=== PATIENT | female | born 1975 | race American Indian/Alaskan Native ===

== ENCOUNTER 2016-10-17 14:10 | Emergency (ER) | payer MEDICARE, MEDICAID ==
[2016-10-17 15:51] VITALS: BP 125/88
[2016-10-17 17:49] LABS: Basophils % (Auto) 0.6 % (0.0-1.8); Hematocrit 37.2 % (30.3-42.9); Hemoglobin 11.5 gm/dl (10.1-14.3); Mean Corpuscular HGB Conc 31 % (30-34); Mean Corpuscular Volume 76 fl (79-97); Platelet Count 287 K/mm3 (140-440); Red Blood Count 4.87 M/mm3 (3.65-5.03); Red Cell Distribution Width 18.8 % (13.2-15.2); White Blood Count 7.5 K/mm3 (4.5-11.0)
[2016-10-17 17:54] LABS: Mean Corpuscular Hemoglobin 24 pg (28-32)
[2016-10-17 18:04] LABS: Anion Gap 26 mmol/L; BUN/Creatinine Ratio 10.31; Blood Urea Nitrogen 66 mg/dL (7-17); Calcium 9.5 mg/dL (8.4-10.2); Carbon Dioxide 16 mmol/L (22-30); Chloride 100.3 mmol/L (98-107); Glucose 152 mg/dL (65-100); Potassium 3.8 mmol/L (3.6-5.0); Sodium 138 mmol/L (137-145)
--- NOTE | 2016-10-18 08:01 | ED Elopement Review ---
ED Pt Elopement review - Results review Lab results: Laboratory Tests 10/17/16 10/17/16 17:30 17:30 WBC 7.5 RBC 4.87 Hgb 11.5 Hct 37.2 MCV 76 L MCH 24 L MCHC 31 RDW 18.8 H Plt Count 287 Lymph % (Auto) 17.8 [place] % (Auto) 9.0 H Eos % (Auto) 0.0 Baso % (Auto) 0.6 Lymph # 1.3 [place] # 0.7 Eos # 0.0 Baso # 0.0 Seg Neutrophils % 72.6 H Seg Neutrophils # 5.4 Sodium 138 Potassium 3.8 Chloride 100.3 Carbon Dioxide 16 L Anion Gap 26 BUN 66 H Creatinine 6.4 H Estimated GFR 9 BUN/Creatinine Ratio 10.31 Glucose 152 H Calcium 9.5 Troponin T < 0.010 - Call Back decision Pt Call Back Decision: Call pt to return to [facility] (fever, Syncope, CKD worse now, Tachy)
== END 2016-10-17 21:00 | disposition left against medical advice (07) ==
LOC: ED 14:10
DX: J11.1 Influenza due to unidentified influenza virus with other respiratory manifestations (principal); R11.2 Nausea with vomiting, unspecified; Z53.21 Procedure and treatment not carried out due to patient leaving prior to being seen by health care provider
CPT/HCPCS: 36415; 80048; 84484; 85025; 93005; 93010

== ENCOUNTER 2019-02-02 11:05 | Inpatient (IN) | payer MEDICARE ==
--- NOTE | 2019-02-02 11:38 | Emergency Department Report ---
Blank Doc - Documentation Documentation: 43 y old female with end stage renal disease sent in by tube roller to get her dialysis Pt ststaes port was placed last week and this would be her first dialysis in a while states non compliant with prior center Nephrolist:Dr. Calderón MAin Side: admit for dialysis
[2019-02-02 12:12] LABS: Hematocrit 25.5 % (30.3-42.9); Hemoglobin 8.4 gm/dl (10.1-14.3); Mean Corpuscular HGB Conc 33 % (30-34); Mean Corpuscular Volume 91 fl (79-97); Platelet Count 343 K/mm3 (140-440); Red Blood Count 2.81 M/mm3 (3.65-5.03); Red Cell Distribution Width 17.3 % (13.2-15.2)
[2019-02-02 12:33] LABS: Albumin 3.4 g/dL (3.9-5); BUN/Creatinine Ratio 8; Blood Urea Nitrogen 80 mg/dL (7-17); Calcium 9.6 mg/dL (8.4-10.2); Hemolysis Index 3
[2019-02-02 12:42] LABS: Alanine Aminotransferase < 5 units/L (7-56); Bilirubin,Direct < 0.2 mg/dL (0-0.2)
[2019-02-02] MEDS ORDERED: HEPARIN IV PRN (12:49)
[2019-02-02] MEDS ORDERED: HEPARIN 10,000 UNITS/10 ML IV PRN ×2 (12:49)
[2019-02-02] MEDS ORDERED: NACL 0.9% 100 ML IV PRN (12:49)
[2019-02-02] MEDS ORDERED: PROCRIT SUB-Q PRN (12:49)
[2019-02-02] MEDS ORDERED: ZEMPLAR IV PRN (12:49)
--- NOTE | 2019-02-02 12:53 | XRay Report ---
AP CHEST: HISTORY: Hypertension AP view of the chest demonstrates a normal mediastinal and cardiac contour with clear lungs and normal bony and soft tissue structures. Right IJ dual-lumen venous catheter terminates at the cavoatrial junction. IMPRESSION: Unremarkable AP chest.
[2019-02-02 12:56] LABS: INR 0.95 (0.87-1.13); Partial Thromboplastin Time 26.5 Sec. (24.2-36.6)
[2019-02-02 13:29] LABS: Basophils % (Manual) 0 % (0.0-1.8); Total Cells Counted 100
[2019-02-02 13:30] LABS: Anisocytosis Few; Macrocytosis Few; Platelet Estimate Consistent w Auto; Poikilocytosis Few
--- NOTE | 2019-02-02 13:35 | Emergency Department Report ---
ED General Adult HPI - General Chief complaint: Pain General Stated complaint: DIALYSIS Time Seen by Provider: 02/02/19 11:33 Source: patient Mode of arrival: Wheelchair Limitations: Physical Limitation - History of Present Illness Initial comments: This is a 43-year-old female with a history of polycystic kidney disease. She has end-stage renal disease and has been on dialysis for approximately 5 months. She has a dialysis catheter. She was last dialyzed approximately one week ago at [facility]. She went to her character actor's office today because she was unable to secure an outpatient dialysis. Thereby, he sent her to the emergency department as dialysis was likely required. The patient seems to have quite a few pain complaints of chronic nature to include back pain right side pain. She does not report acute dyspnea. She d enies fever or chills. She states she is here for dialysis. -: Gradual, week(s) Location: back, upper extremity, lower extremity Severity scale (0 -10): 0 Quality: aching Consistency: intermittent Improves with: none Worsens with: movement Associated Symptoms: denies other symptoms - Related Data Home Medications Medication Instructions Recorded Confirmed Last Taken No Known Home Medications [No 02/02/19 02/02/19 Unknown Reported Home Medications] Allergies Allergy/AdvReac Type Severity Reaction Status Date / Time No Known Allergies Allergy Verified 02/02/19 11:37 ED Review of Systems ROS: Stated complaint: DIALYSIS Other details as noted in HPI Constitutional: denies: chills, fever Eyes: denies: eye pain, eye discharge, vision change ENT: denies: ear pain, throat pain Respiratory: denies: cough, shortness of breath, wheezing Cardiovascular: denies: chest pain, palpitations Endocrine: no symptoms reported Gastrointestinal: denies: abdominal pain, nausea, diarrhea Genitourinary: denies: urgency, dysuria, discharge Musculoskeletal: as per HPI, back pain, joint swelling, arthralgia Skin: denies: rash, lesions Neurological: denies: headache, weakness, numbness, paresthesias Psychiatric: denies: anxiety, depression Hematological/Lymphatic: denies: easy bleeding, easy bruising ED Past Medical Hx - Past Medical History Previous Medical History?: Yes Hx Renal Disease: Yes Additional medical history: Fluid on brain - Surgical History Past Surgical History?: Yes Additional Surgical History: C- Section, 3 hernia repairs, gallbladder removed - Social History Smoking Status: Current Every Day Smoker Substance Use Type: None - Medications Home Medications: Home Medications Medication Instructions Recorded Confirmed Last Taken Type No Known Home Medications [No 02/02/19 02/02/19 Unknown History Reported Home Medications] ED Physical Exam - General Limitations: Physical Limitation General appearance: alert, in no apparent distress - Head Head exam: Present: atraumatic, normocephalic - Eye Eye exam: Present: normal appearance. Absent: scleral icterus - ENT ENT exam: Present: mucous membranes moist - Neck Neck exam: Present: normal inspection. Absent: tenderness, meningismus - Respiratory Respiratory exam: Present: normal lung sounds bilaterally. Absent: respiratory distress - Cardiovascular Cardiovascular Exam: Present: regular rate, normal rhythm. Absent: systolic murmur, diastolic murmur, rubs, gallop - GI/Abdominal GI/Abdominal exam: Present: soft, normal bowel sounds. Absent: distended, tenderness, guarding, rebound, rigid - Extremities Exam Extremities exam: Present: normal inspection - Back Exam Back exam: Present: normal inspection - Neurological Exam Neurological exam: Present: alert, oriented X3, CN II-XII intact. Absent: motor sensory deficit - Psychiatric Psychiatric exam: Present: normal affect, normal mood - Skin Skin exam: Present: warm, dry, intact, normal color. Absent: rash ED Course Vital Signs 02/02/19 02/02/19 02/02/19 11:35 12:21 12:22 Temperature 98.4 F 98.4 F Pulse Rate 126 H 112 H Respiratory 20 13 13 Rate Blood Pressure 119/84 Blood Pressure 121/74 [Left] O2 Sat by Pulse 98 100 100 Oximetry - Reevaluation(s) Reevaluation #1: Discussed laboratory picture with character actor, Dr. Calderón. He stated that acute intervention was not required prior to dialysis. He stated he would place dialysis orders. I spoke to Dr. Singh who will be admitting the patient to the hospitalist service. 02/02/19 13:38 ED Medical Decision Making - Lab Data Result diagrams: 02/02/19 11:50 02/02/19 11:50 Laboratory Results - last 24 hr 02/02/19 02/02/19 02/02/19 11:50 11:50 11:50 WBC 9.4 RBC 2.81 L Hgb 8.4 L Hct 25.5 L MCV 91 MCH 30 MCHC 33 RDW 17.3 H Plt Count 343 Add Manual Diff Complete Total Counted 100 Seg Neuts % (Manual) 68.0 Band Neutrophils % 0 Lymphocytes % (Manual) 17.0 Reactive Lymphs % (Man) 0 Monocytes % (Manual) 5.0 Eosinophils % (Manual) 10.0 H Basophils % (Manual) 0 Metamyelocytes % 0 Myelocytes % 0 Promyelocytes % 0 Blast Cells % 0 Nucleated RBC % Not Reportable Seg Neutrophils # Man 6.4 Band Neutrophils # 0.0 Lymphocytes # (Manual) 1.6 Abs React Lymphs (Man) 0.0 Monocytes # (Manual) 0.5 Eosinophils # (Manual) 0.9 H Basophils # (Manual) 0.0 Metamyelocytes # 0.0 Myelocytes # 0.0 Promyelocytes # 0.0 Blast Cells # 0.0 WBC Morphology Not Reportable Hypersegmented Neuts Not Reportable Hyposegmented Neuts Not Reportable Hypogranular Neuts Not Reportable Smudge Cells Not Reportable Toxic Granulation Not Reportable Toxic Vacuolation Not Reportable Dohle Bodies Not Reportable Pelger-Huet Anomaly Not Reportable Lam Rods Not Reportable Platelet Estimate Consistent w auto Clumped Platelets Not Reportable Plt Clumps, EDTA Not Reportable Large Platelets Not Reportable Giant Platelets Not Reportable Platelet Satelliting Not Reportable Plt Morphology Comment Not Reportable RBC Morphology Not Reportable Dimorphic RBCs Not Reportable Polychromasia Not Reportable Hypochromasia Not Reportable Poikilocytosis Few Anisocytosis Few Microcytosis Not Reportable Macrocytosis Few Spherocytes Not Reportable Pappenheimer Bodies Not Reportable Sickle Cells Not Reportable Target Cells Not Reportable Tear Drop Cells Not Reportable Ovalocytes Not Reportable Helmet Cells Not Reportable [place] Bodies Not Reportable [place] Rings Not Reportable Jamie Cells Not Reportable Bite Cells Not Reportable Crenated Cell Not Reportable Elliptocytes Not Reportable Acanthocytes (Spur) Not Reportable Rouleaux Not Reportable Hemoglobin C Crystals Not Reportable Schistocytes Not Reportable Malaria parasites Not Reportable Quang Bodies Not Reportable Hem Pathologist Commnt No PT INR APTT Sodium 135 L Potassium 5.8 H Chloride 94.7 L Carbon Dioxide 19 L Anion Gap 27 BUN 80 H Creatinine 10.6 H Estimated GFR 5 BUN/Creatinine Ratio 8 Glucose 89 Calcium 9.6 Phosphorus 7.80 H Magnesium 1.70 Total Bilirubin 0.20 Direct Bilirubin < 0.2 AST 7 ALT < 5 L Alkaline Phosphatase 142 H NT-Pro-B Natriuret Pep 802.7 H Total Protein 7.2 Albumin 3.4 L Albumin/Globulin Ratio 0.9 HCG, Qual Negative 02/02/19 12:07 WBC RBC Hgb Hct MCV MCH MCHC RDW Plt Count Add Manual Diff Total Counted Seg Neuts % (Manual) Band Neutrophils % Lymphocytes % (Manual) Reactive Lymphs % (Man) Monocytes % (Manual) Eosinophils % (Manual) Basophils % (Manual) Metamyelocytes % Myelocytes % Promyelocytes % Blast Cells % Nucleated RBC % Seg Neutrophils # Man Band Neutrophils # Lymphocytes # (Manual) Abs React Lymphs (Man) Monocytes # (Manual) Eosinophils # (Manual) Basophils # (Manual) Metamyelocytes # Myelocytes # Promyelocytes # Blast Cells # WBC Morphology Hypersegmented Neuts Hyposegmented Neuts Hypogranular Neuts Smudge Cells Toxic Granulation Toxic Vacuolation Dohle Bodies Pelger-Huet Anomaly Lam Rods Platelet Estimate Clumped Platelets Plt Clumps, EDTA Large Platelets Giant Platelets Platelet Satelliting Plt Morphology Comment RBC Morphology Dimorphic RBCs Polychromasia Hypochromasia Poikilocytosis Anisocytosis Microcytosis Macrocytosis Spherocytes Pappenheimer Bodies Sickle Cells Target Cells Tear Drop Cells Ovalocytes Helmet Cells [place] Bodies [place] Rings Jamie Cells Bite Cells Crenated Cell Elliptocytes Acanthocytes (Spur) Rouleaux Hemoglobin C Crystals Schistocytes Malaria parasites Quang Bodies Hem Pathologist Commnt PT 13.2 INR 0.95 APTT 26.5 Sodium Potassium Chloride Carbon Dioxide Anion Gap BUN Creatinine Estimated GFR BUN/Creatinine Ratio Glucose Calcium Phosphorus Magnesium Total Bilirubin Direct Bilirubin AST ALT Alkaline Phosphatase NT-Pro-B Natriuret Pep Total Protein Albumin Albumin/Globulin Ratio HCG, Qual - EKG Data -: EKG Interpreted by Me (still pending) - Radiology Data interpreted by me: Dialysis catheter in situ. No acute process seen. Critical care attestation.: If time is entered above; I have spent that time in minutes in the direct care of this critically ill patient, excluding procedure time. ED Disposition Clinical Impression: End-stage renal disease needing dialysis, Hyperkalemia Disposition: DC- OP ADMIT IP TO THIS HOSP Is pt being admited?: Yes Does the pt Need Aspirin: Yes Condition: Stable Time of Disposition: 13:40
[2019-02-02 16:30] LABS: Hepatitis B Surface Antigen Non-Reactive (Negative); Hepatitis C Virus Antibody Non-Reactive (NonReactive)
--- NOTE | 2019-02-02 17:37 | Consultation ---
History of Present Illness - Reason for Consult Consult date: 02/02/19 end stage renal disease, hyperkalemia, metabolic acidosis - History of Present Illness The patient is a 43 YO femalewith history significant for HLD, Anemia, ESRD and Medical non-complaince who presented to [facility] ED for need of hemodialysis. Patient hasn't had dialysis for the past 2 months. She was last dialyzed on 01/27/2019 at [facility]. Since she has not established with any outpatient hemodialysis unit she came to the ER for hemodialysis. Patient denies any N, V, D, abd pain, cp, cough, sob, dizziness, syncope, leg swelling, fever, chills, rash, dysuria or hematuria. Labs significant for K 5.8, Bicarb 19 and Hb 8.4. Nephrology was consulted for further evaluation and treatment. Past History Past Medical History: anemia, dialysis, ESRD Medications and Allergies Allergies Allergy/AdvReac Type Severity Reaction Status Date / Time No Known Allergies Allergy Verified 02/02/19 11:37 Home Medications Medication Instructions Recorded Confirmed Last Taken Type oxyCODONE /ACETAMINOPHEN [Percocet 1 tab PO Q6H PRN #14 tablet 02/03/19 Unknown Rx 5/325 mg] Active Meds: Active Medications Aspirin (Baby Aspirin) 81 mg PO QDAY PRINCESS Epoetin Conor (Procrit) 20,000 unit SUB-Q GOPI PRN PRN Reason: hemodialysis Heparin Sodium (Porcine) (Heparin 10,000 Units/10 Ml) 1,000 unit IV GOPI PRN PRN Reason: hemodialysis Heparin Sodium (Porcine) (Heparin 10,000 Units/10 Ml) 1,000 unit IV GOPI PRN PRN Reason: hemodialysis Heparin Sodium (Porcine) (Heparin) 5,000 unit IV GOPI PRN PRN Reason: hemodialysis Sodium Chloride (Nacl 0.9%) 100 mls @ 999 mls/hr IV GOPI PRN PRN Reason: Hypotension Paricalcitol (Zemplar) 1 mcg IV GOPI PRN PRN Reason: hemodialysis Review of Systems Constitutional: no weight loss, no weight gain, no fever, no chills, no anorexia, no fatigue, no weakness Breasts: deferred Cardiovascular: no chest pain, no orthopnea, no edema, no syncope, no lightheadedness, no shortness of breath, no leg edema Respiratory: no cough, no shortness of breath, no dyspnea on exertion Gastrointestinal: no abdominal pain, no nausea, no vomiting, no diarrhea, no melena, no jaundice Genitourinary Female: no dysuria, no hematuria Rectal: no bleeding Integumentary: no rash, no wounds, no jaundice Neurological: no paralysis, no convulsions, no aphasia, no change in speech, no change in mentation, no confusion, no memory loss Psychiatric: no memory loss Exam - Vital Signs Vital signs: Vital Signs Temp Pulse Resp BP Pulse Ox 98.4 F 126 H 20 119/84 98 02/02/19 11:35 02/02/19 11:35 02/02/19 11:35 02/02/19 11:35 02/02/19 11:35 - General Appearance General appearance: well-developed, well-nourished, appears stated age, obese, other (no distress, R IJ tunnel catheter) EENT: ATNC, PERRL, mucous membranes moist, hearing intact, vision intact Neck: Present: neck supple, trachea midline Respiratory: Clear to Ascultation Heart: regular, S1S2, no murmurs Gastrointestinal: Present: normoactive bowel sounds. Absent: tenderness, distended Integumentary: no rash, warm and dry Neurologic: no focal deficit, no asterixis, alert and oriented x3 Musculoskeletal: Present: other (no edema) Results - Lab Results 02/03/19 10:08 02/03/19 10:08 Most recent lab results Calcium 9.6 mg/dL (8.4-10.2) 02/02/19 11:50 Phosphorus 7.80 mg/dL (2.5-4.5) H 02/02/19 11:50 Magnesium 1.70 mg/dL (1.7-2.3) 02/02/19 11:50 Assessment and Plan 1. ESRD: Patient was last dialzyed yesterday. Plan to do HD today, orders placed. 2. FEN: Hyperkalemia, HD today. Metabolic acidosis, HD today. Monitor lytes. 3. Anemia: Epogen. 4. Compliance encouraged.
[2019-02-02] MEDS ORDERED: TYLENOL PO PRN (21:36)
[2019-02-02] MEDS ORDERED: SODIUM CHLORIDE FLUSH SYRINGE 10 ML IV PRN (21:36)
[2019-02-02] MEDS ORDERED: MORPHINE IV PRN (21:36)
--- NOTE | 2019-02-02 22:09 | History and Physical Report ---
History of Present Illness Date of examination: 02/02/19 Date of admission: 02/02/19 12:40 Chief complaint: Shortness of breath for 2 days History of present illness: 43-year-old -Gabonese female with history of polycystic kidney disease missed her dialysis for the last 1 week. Patient had hemodialysis one week ago at [facility]. Patient has been having shortness of breath and orthopnea. Patient may need a dialysis chair. Patient is referred by her chief dietitian for volume overload. No fever or chills. Past Medical History Previous Medical History?: Yes Hx Renal Disease: Yes Additional medical history: Fluid on brain Surgical History Past Surgical History?: Yes Additional Surgical History: C- Section, 3 hernia repairs, gallbladder removed Social History Smoking Status: Current Every Day Smoker Substance Use Type: None Family history Htn Medications Home Medications: Home Medications Medication Instructions Recorded Confirmed Last Taken Type No Known Home Medications [No 02/02/19 02/02/19 Unknown History Reported Home Medications] Review of Systems ROS: Stated complaint: DIALYSIS Other details as noted in HPI Constitutional: denies: chills, fever Eyes: denies: eye pain, eye discharge, vision change ENT: denies: ear pain, throat pain Respiratory: denies: cough, shortness of breath, wheezing Cardiovascular: denies: chest pain, palpitations Endocrine: no symptoms reported Gastrointestinal: denies: abdominal pain, nausea, diarrhea Genitourinary: denies: urgency, dysuria, discharge Musculoskeletal: as per HPI, back pain, joint swelling, arthralgia Skin: denies: rash, lesions Neurological: denies: headache, weakness, numbness, paresthesias Psychiatric: denies: anxiety, depression Hematological/Lymphatic: denies: easy bleeding, easy bruising Medications and Allergies Allergies Allergy/AdvReac Type Severity Reaction Status Date / Time No Known Allergies Allergy Verified 02/02/19 11:37 Home Medications Medication Instructions Recorded Confirmed Last Taken Type No Known Home Medications [No 02/02/19 02/02/19 Unknown History Reported Home Medications] Active Meds: Active Medications Acetaminophen (Tylenol) 650 mg PO Q4H PRN PRN Reason: Pain MILD(1-3)/Fever >100.5/BROWN Aspirin (Baby Aspirin) 81 mg PO QDAY PRINCESS Epoetin Conor (Procrit) 20,000 unit SUB-Q GOPI PRN PRN Reason: hemodialysis Heparin Sodium (Porcine) (Heparin 10,000 Units/10 Ml) 1,000 unit IV GOPI PRN PRN Reason: hemodialysis Heparin Sodium (Porcine) (Heparin 10,000 Units/10 Ml) 1,000 unit IV GOPI PRN PRN Reason: hemodialysis Heparin Sodium (Porcine) (Heparin) 5,000 unit IV GOPI PRN PRN Reason: hemodialysis Sodium Chloride (Nacl 0.9%) 100 mls @ 999 mls/hr IV GOPI PRN PRN Reason: Hypotension Morphine Sulfate (Morphine) 2 mg IV Q4H PRN PRN Reason: Pain, Moderate (4-6) Ondansetron HCl (Zofran) 4 mg IV Q8H PRN PRN Reason: Nausea And Vomiting Oxycodone/Acetaminophen (Percocet 5/325) 1 tab PO Q6H PRN PRN Reason: Pain, Moderate (4-6) Paricalcitol (Zemplar) 1 mcg IV GOPI PRN PRN Reason: hemodialysis Sodium Chloride (Sodium Chloride Flush Syringe 10 Ml) 10 ml IV BID PRINCESS Sodium Chloride (Sodium Chloride Flush Syringe 10 Ml) 10 ml IV PRN PRN PRN Reason: LINE FLUSH Exam - Constitutional Vitals: Temp Pulse Resp BP Pulse Ox 98.4 F 116 H 20 117/82 99 02/02/19 20:33 02/02/19 20:33 02/02/19 20:33 02/02/19 20:33 02/02/19 20:33 General appearance: Present: mild distress, well-nourished - EENT Eyes: Present: PERRL ENT: hearing intact, clear oral mucosa - Neck Neck: Present: supple, normal ROM - Respiratory Respiratory effort: normal Respiratory: bilateral: CTA - Cardiovascular Heart rate: 78 Rhythm: regular Heart Sounds: Present: S1 & S2. Absent: rub, click - Extremities Extremities: no ischemia, pulses intact, pulses symmetrical, No edema Peripheral Pulses: within normal limits - Abdominal General gastrointestinal: Present: soft, non-tender, non-distended, normal bowel sounds Female genitourinary: Present: normal - Rectal Rectal Exam: deferred - Integumentary Integumentary: Present: clear, warm, dry - Musculoskeletal Musculoskeletal: gait normal, strength equal bilaterally - Psychiatric Psychiatric: appropriate mood/affect, intact judgment & insight - Neurologic Neurologic: CNII-XII intact, moves all extremities - Allied Health Allied health notes reviewed: nursing, case management Results - Labs CBC & Chem 7: 02/02/19 11:50 02/02/19 11:50 Labs: Laboratory Last Values WBC 9.4 K/mm3 (4.5-11.0) 02/02/19 11:50 RBC 2.81 M/mm3 (3.65-5.03) L 02/02/19 11:50 Hgb 8.4 gm/dl (10.1-14.3) L 02/02/19 11:50 Hct 25.5 % (30.3-42.9) L 02/02/19 11:50 MCV 91 fl (79-97) 02/02/19 11:50 MCH 30 pg (28-32) 02/02/19 11:50 MCHC 33 % (30-34) 02/02/19 11:50 RDW 17.3 % (13.2-15.2) H 02/02/19 11:50 Plt Count 343 K/mm3 (140-440) 02/02/19 11:50 Add Manual Diff Complete 02/02/19 11:50 Total Counted 100 02/02/19 11:50 Seg Neuts % (Manual) 68.0 % (40.0-70.0) 02/02/19 11:50 0 % 02/02/19 11:50 17.0 % (13.4-35.0) 02/02/19 11:50 Reactive Lymphs % (Man) 0 % 02/02/19 11:50 5.0 % (0.0-7.3) 02/02/19 11:50 10.0 % (0.0-4.3) H 02/02/19 11:50 0 % (0.0-1.8) 02/02/19 11:50 0 % 02/02/19 11:50 0 % 02/02/19 11:50 0 % 02/02/19 11:50 0 % 02/02/19 11:50 Nucleated RBC % Not Reportable 02/02/19 11:50 Seg Neutrophils # Man 6.4 K/mm3 (1.8-7.7) 02/02/19 11:50 Band Neutrophils # 0.0 K/mm3 02/02/19 11:50 1.6 K/mm3 (1.2-5.4) 02/02/19 11:50 Abs React Lymphs (Man) 0.0 K/mm3 02/02/19 11:50 0.5 K/mm3 (0.0-0.8) 02/02/19 11:50 0.9 K/mm3 (0.0-0.4) H 02/02/19 11:50 0.0 K/mm3 (0.0-0.1) 02/02/19 11:50 0.0 K/mm3 02/02/19 11:50 0.0 K/mm3 02/02/19 11:50 0.0 K/mm3 02/02/19 11:50 Blast Cells # 0.0 K/mm3 02/02/19 11:50 WBC Morphology Not Reportable 02/02/19 11:50 Hypersegmented Neuts Not Reportable 02/02/19 11:50 Hyposegmented Neuts Not Reportable 02/02/19 11:50 Hypogranular Neuts Not Reportable 02/02/19 11:50 Not Reportable 02/02/19 11:50 Not Reportable 02/02/19 11:50 Not Reportable 02/02/19 11:50 Not Reportable 02/02/19 11:50 Not Reportable 02/02/19 11:50 Not Reportable 02/02/19 11:50 Consistent w auto 02/02/19 11:50 Not Reportable 02/02/19 11:50 Plt Clumps, EDTA Not Reportable 02/02/19 11:50 Not Reportable 02/02/19 11:50 Not Reportable 02/02/19 11:50 Not Reportable 02/02/19 11:50 Plt Morphology Comment Not Reportable 02/02/19 11:50 RBC Morphology Not Reportable 02/02/19 11:50 Dimorphic RBCs Not Reportable 02/02/19 11:50 Not Reportable 02/02/19 11:50 Not Reportable 02/02/19 11:50 Few 02/02/19 11:50 Few 02/02/19 11:50 Not Reportable 02/02/19 11:50 Few 02/02/19 11:50 Not Reportable 02/02/19 11:50 Not Reportable 02/02/19 11:50 Not Reportable 02/02/19 11:50 Not Reportable 02/02/19 11:50 Not Reportable 02/02/19 11:50 Not Reportable 02/02/19 11:50 Not Reportable 02/02/19 11:50 Not Reportable 02/02/19 11:50 Not Reportable 02/02/19 11:50 Not Reportable 02/02/19 11:50 Not Reportable 02/02/19 11:50 Not Reportable 02/02/19 11:50 Not Reportable 02/02/19 11:50 Acanthocytes (Spur) Not Reportable 02/02/19 11:50 Rouleaux Not Reportable 02/02/19 11:50 Not Reportable 02/02/19 11:50 Not Reportable 02/02/19 11:50 Not Reportable 02/02/19 11:50 Not Reportable 02/02/19 11:50 Hem Pathologist Commnt No 02/02/19 11:50 PT 13.2 Sec. (12.2-14.9) 02/02/19 12:07 INR 0.95 (0.87-1.13) 02/02/19 12:07 APTT 26.5 Sec. (24.2-36.6) 02/02/19 12:07 Sodium 135 mmol/L (137-145) L 02/02/19 11:50 Potassium 5.8 mmol/L (3.6-5.0) H 02/02/19 11:50 Chloride 94.7 mmol/L (98-107) L 02/02/19 11:50 Carbon Dioxide 19 mmol/L (22-30) L 02/02/19 11:50 27 mmol/L 02/02/19 11:50 BUN 80 mg/dL (7-17) H 02/02/19 11:50 10.6 mg/dL (0.7-1.2) H 02/02/19 11:50 Estimated GFR 5 ml/min 02/02/19 11:50 8 % 02/02/19 11:50 Glucose 89 mg/dL (65-100) 02/02/19 11:50 Calcium 9.6 mg/dL (8.4-10.2) 02/02/19 11:50 Phosphorus 7.80 mg/dL (2.5-4.5) H 02/02/19 11:50 Magnesium 1.70 mg/dL (1.7-2.3) 02/02/19 11:50 0.20 mg/dL (0.1-1.2) 02/02/19 11:50 < 0.2 mg/dL (0-0.2) 02/02/19 11:50 AST 7 units/L (5-40) 02/02/19 11:50 ALT < 5 units/L (7-56) L 02/02/19 11:50 142 units/L (35-129) H 02/02/19 11:50 NT-Pro-B Natriuret Pep 802.7 pg/mL (0-450) H 02/02/19 11:50 7.2 g/dL (6.3-8.2) 02/02/19 11:50 3.4 g/dL (3.9-5) L 02/02/19 11:50 0.9 % 02/02/19 11:50 HCG, Qual Negative (Negative) 02/02/19 11:50 Hepatitis A IgM Ab Non-reactive (NonReactive) 02/02/19 11:50 Hep Bs Antigen Non-reactive (Negative) 02/02/19 11:50 Hep B Core IgM Ab Non-reactive (NonReactive) 02/02/19 11:50 Non-reactive (NonReactive) 02/02/19 11:50 Short CBC 02/02/19 Range/Units 11:50 WBC 9.4 (4.5-11.0) K/mm3 Hgb 8.4 L (10.1-14.3) gm/dl Hct 25.5 L (30.3-42.9) % Plt Count 343 (140-440) K/mm3 BMP 02/02/19 11:50 Sodium 135 L Potassium 5.8 H Chloride 94.7 L Carbon Dioxide 19 L BUN 80 H Creatinine 10.6 H Glucose 89 Calcium 9.6 Liver Function 02/02/19 Range/Units 11:50 Total Bilirubin 0.20 (0.1-1.2) mg/dL Direct Bilirubin < 0.2 (0-0.2) mg/dL AST 7 (5-40) units/L ALT < 5 L (7-56) units/L Alkaline Phosphatase 142 H (35-129) units/L Albumin 3.4 L (3.9-5) g/dL - Imaging and Cardiology EKG: report reviewed (sinus tachycardia heart rate of [address]-T wave changes) Chest x-ray: report reviewed (no acute findings) Assessment and Plan Advance Directives: Yes (full code) VTE prophylaxis?: Chemical Plan of care discussed with patient/family: Yes - Patient Problems (1) End-stage renal disease needing dialysis Current Visit: Yes Status: Acute Plan to address problem: Patient to be scheduled for emergent hemodialysis Patient may need a hemodialysis spot in the dialysis center 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 (2) Volume overload Current Visit: Yes Status: Acute Plan to address problem: Needs hemodialysis (3) Anemia Current Visit: Yes Status: Chronic Qualifiers: Anemia type: unspecified type Qualified Code(s): D64.9 - Anemia, unspecified Plan to address problem: Possibly secondary to end-stage renal disease Will defer to chief dietitian regarding EPO (4) Hyperkalemia Current Visit: Yes Status: Acute Plan to address problem: Treated with calcium gluconate bicarbonate and Kayexalate (5) Hypertension Current Visit: Yes Status: Chronic Qualifiers: Hypertension type: essential hypertension Qualified Code(s): I10 - Essential (primary) hypertension Plan to address problem: Continue antihypertensives (6) DVT prophylaxis Current Visit: Yes Status: Acute Plan to address problem: On heparin and GI prophylaxis
[2019-02-02] MEDS ORDERED: CALCIUM GLUCONATE 2,000 MG in NACL 0.9% 100 ML IV ONE (22:15)
[2019-02-02] MEDS: BABY ASPIRIN PO SCH (23:21)
[2019-02-02] MEDS: PERCOCET 5/325 PO PRN (23:22)
[2019-02-02] MEDS: ZOFRAN IV PRN (23:22)
[2019-02-02] MEDS: SODIUM CHLORIDE FLUSH SYRINGE 10 ML IV SCH (23:24)
[2019-02-03] MEDS: PERCOCET 5/325 PO PRN ×2 (06:11→11:39)
[2019-02-03] MEDS: ZOFRAN IV PRN (07:20)
--- NOTE | 2019-02-03 08:01 | Progress Note ---
Assessment and Plan 1. ESRD: Patient was last dialzyed yesterday. CM offered patient that they can work on getting outpatient dialysis setup. Patient dont want to stay at this time. 2. FEN: Hyperkalemia, s/p HD. Low potassium diet. Metabolic acidosis, s/p HD. Monitor lytes. 3. Anemia: Epogen. 4. Compliance encouraged. Subjective Date of service: 02/03/19 Interval history: Patient is doing ok. Objective - Vital Signs Vital signs: Vital Signs - 12hr 02/02/19 02/03/19 20:33 05:05 Temperature 98.4 F 97.6 F Pulse Rate 116 H 104 H Respiratory 20 20 Rate Blood Pressure 117/82 108/63 O2 Sat by Pulse 99 95 Oximetry - General Appearance General appearance: well-developed, well-nourished, appears stated age, other (not in distress, R IJ tunnel catheter) EENT: ATNC, PERRL, mucous membranes moist, hearing intact, vision intact Neck: supple Respiratory: Present: Clear to Ascultation Cardiology: regular, S1S2, no murmurs Gastrointestinal: normoactive bowel sounds, no tenderness, no distended, obese Integumentary: no rash, warm and dry Neurologic: no focal deficit, no asterixis, alert and oriented x3 Musculoskeletal: other (no edema) Psychiatric: cooperative - Lab 02/03/19 10:08 02/03/19 10:08 Most recent lab results Calcium 9.6 mg/dL (8.4-10.2) 02/02/19 11:50 Phosphorus 7.80 mg/dL (2.5-4.5) H 02/02/19 11:50 Magnesium 1.70 mg/dL (1.7-2.3) 02/02/19 11:50 Medications & Allergies - Medications Allergies/Adverse Reactions: Allergies No Known Allergies Allergy (Verified 02/02/19 11:37) Home Medications: Home Medications Medication Instructions Recorded Confirmed Last Taken Type oxyCODONE /ACETAMINOPHEN [Percocet 1 tab PO Q6H PRN #14 tablet 02/03/19 Unknown Rx 5/325 mg] Active Medications: Generic Name Dose Route Start Last Admin Trade Name Freq PRN Reason Stop Dose Admin Acetaminophen 650 mg 02/02/19 21:36 Tylenol PO Q4H PRN Pain MILD(1-3)/Fever >100.5/BROWN Aspirin 81 mg 02/02/19 15:00 02/02/19 23:21 Baby Aspirin PO 81 mg QDAY PRINCESS Administration Epoetin Conor 20,000 unit 02/02/19 12:49 Procrit SUB-Q GOPI PRN hemodialysis Famotidine 10 mg 02/03/19 10:00 Pepcid PO BID [facility] Heparin Sodium (Porcine) 1,000 unit 02/02/19 12:49 Heparin 10,000 Units/10 Ml IV GOPI PRN hemodialysis Heparin Sodium (Porcine) 1,000 unit 02/02/19 12:49 Heparin 10,000 Units/10 Ml IV GOPI PRN hemodialysis Heparin Sodium (Porcine) 5,000 unit 02/02/19 12:49 Heparin IV GOPI PRN hemodialysis Heparin Sodium (Porcine) 5,000 unit 02/03/19 10:00 Heparin SUB-Q Q12HR [facility] Sodium Chloride 100 mls @ 999 mls/hr 02/02/19 12:49 Nacl 0.9% IV GOPI PRN Hypotension Metoprolol Tartrate 25 mg 02/03/19 10:00 Lopressor PO BID [facility] Morphine Sulfate 2 mg 02/02/19 21:36 Morphine IV Q4H PRN Pain, Moderate (4-6) Ondansetron HCl 4 mg 02/02/19 21:36 02/03/19 07:20 Zofran IV 4 mg Q8H PRN Administration Nausea And Vomiting Oxycodone/Acetaminophen 1 tab 02/02/19 21:36 02/03/19 06:11 Percocet 5/325 PO 1 tab Q6H PRN Administration Pain, Moderate (4-6) Paricalcitol 1 mcg 02/02/19 12:49 Zemplar IV GOPI PRN hemodialysis Sodium Chloride 10 ml 02/02/19 22:00 02/02/19 23:24 Sodium Chloride Flush Syringe 10 Ml IV 10 ml BID PRINCESS Administration Sodium Chloride 10 ml 02/02/19 21:36 Sodium Chloride Flush Syringe 10 Ml IV PRN PRN LINE FLUSH
--- NOTE | 2019-02-03 08:52 | Discharge Summary ---
Providers - Providers Date of Admission: 02/02/19 12:40 Attending physician: RUBENS MERCEDES MD 02/02/19 12:43 Consult to Physician [CONS] Urgent Comment: Consulting Provider: CHIQUIS LOPEZ Physician Instructions: Reason For Exam: esrd needs d [facility] Reason for admission: hyperkalemia, ESRD on HD, dialysis noncompliance Condition: Stable Hospital course: 43-year-old -Syrian female with history of polycystic kidney disease missed her dialysis for the last 1 week. Patient had hemodialysis one week ago at [facility], [place]. Patient has been having shortness of breath and orthopnea. Patient may need a dialysis chair. Patient is referred by her press tool maker for volume overload. No fever or chills. Patient was admitted and was dialyzed and nephrology consult appreciated. We have asked her to arrange O/P dialysis chair and patient declined and said will arrange when she come next time. patient was hemodynamically stable and her electrolytes are corrected. Disposition: [id number] HOME UND[facility] Time spent for discharge: 32 minutes - Discharge Diagnoses (1) End-stage renal disease needing dialysis Status: Acute (2) Hyperkalemia Status: Acute (3) Volume overload Status: Acute (4) Anemia Status: Chronic Qualifiers: Anemia type: unspecified type Qualified Code(s): D64.9 - Anemia, unspecified (5) Hypertension Status: Chronic Qualifiers: Hypertension type: essential hypertension Qualified Code(s): I10 - Essential (primary) hypertension Core Measure Documentation - Palliative Care Palliative Care/ Comfort Measures: Not Applicable - Core Measures Any of the following diagnoses?: none Exam - Physical Exam Narrative exam: Not in cardiopulmonary distress. The patient is morbidly obese. Vital signs as documented. Head exam is unremarkable. No scleral icterus . Neck is without jugular venous distension, thyromegaly, or carotid bruits. Lungs are clear to auscultation. Cardiac exam reveals regular rate and Rhythm. Abdominal exam reveals normal bowel sounds, no masses, no organomegaly and no aortic enlargement. Extremities are nonedematous and both femoral and pedal pulses are normal. REAL ESTATE CONSULTANT: Alert and oriented 3. No focal weakness. - Constitutional Vitals: Temp Pulse Resp BP Pulse Ox 97.6 F 104 H 20 108/63 95 02/03/19 05:05 02/03/19 05:05 02/03/19 05:05 02/03/19 05:05 02/03/19 05:05 Plan Activity: no restrictions Weight Bearing Status: Full Weight Bearing Diet: renal Follow up with: PRIMARY CARE, [Referring] - 3-5 Days
[2019-02-03] MEDS ORDERED: LOPRESSOR PO SCH (10:00)
[2019-02-03] MEDS ORDERED: PEPCID PO SCH (10:00)
[2019-02-03] MEDS ORDERED: NORVASC PO SCH (10:00)
[2019-02-03] MEDS ORDERED: HEPARIN SUB-Q SCH (10:00)
[2019-02-03] MEDS: BABY ASPIRIN PO SCH (10:32)
[2019-02-03] MEDS: SODIUM CHLORIDE FLUSH SYRINGE 10 ML IV SCH (10:35)
[2019-02-03 11:21] LABS: Hemoglobin 7.7 gm/dl (10.1-14.3)
[2019-02-03 11:31] LABS: Eosinophils % (Auto) 5.4 % (0.0-4.3); Hematocrit 24.4 % (30.3-42.9); Mean Corpuscular HGB Conc 32 % (30-34); Mean Corpuscular Volume 93 fl (79-97); Monocytes % (Auto) 9.5 % (0.0-7.3); Red Blood Count 2.63 M/mm3 (3.65-5.03); Red Cell Distribution Width 17.7 % (13.2-15.2)
[2019-02-03 11:38] LABS: Albumin 2.9 g/dL (3.9-5); BUN/Creatinine Ratio 6; Blood Urea Nitrogen 37 mg/dL (7-17); Calcium 8.9 mg/dL (8.4-10.2); Hemolysis Index 107
[2019-02-03 11:42] LABS: Alanine Aminotransferase < 5 units/L (7-56)
[2019-02-03 11:43] LABS: Platelet Count 327 K/mm3 (140-440)
[2019-02-03 12:00] LABS: Anisocytosis 1+; Band Neutrophils # (Manual) 0.2 K/mm3; Basophils % (Manual) 0 % (0.0-1.8); Macrocytosis Few; Ovalocytes Few; Poikilocytosis 1+; Tear Drop Cells Few; Total Cells Counted 100
[2019-02-03 12:01] LABS: Platelet Estimate Cons
[2019-02-03 13:26] VITALS: BP 131/85
== END 2019-02-03 17:15 | disposition home health service (06) | DRG 640 ==
LOC: ED 11:05 → 3A 12:40
PROVIDERS: ADMIT Internal Medicine; ATTEND Internal Medicine
PROC: 5A1D70Z Performance of Urinary Filtration, Intermittent, Less than 6 Hours Per Day (ICD-10-PCS; principal; 2019-02-02)
DX: E87.5 Hyperkalemia (principal); N18.6 End stage renal disease; I12.0 Hypertensive chronic kidney disease with stage 5 chronic kidney disease or end stage renal disease; E87.70 Fluid overload, unspecified; D64.9 Anemia, unspecified; E87.2 Acidosis; F17.200 Nicotine dependence, unspecified, uncomplicated; Z82.49 Family history of ischemic heart disease and other diseases of the circulatory system
CPT/HCPCS: 36415; 71045; 80053; 80074; 82248; 83036; 83735; 83880; 84100; 84703; 85007; 85025; 85610; 85730; 87116; 93005; 93010; 99406; G0378; J0610; J1644; J2405

== ENCOUNTER 2019-02-06 10:58 | Inpatient (IN) | payer MEDICARE ==
--- NOTE | 2019-02-06 11:20 | Emergency Department Report ---
Chief Complaint: Medical Clearance Stated Complaint: DIALYSIS Time Seen by Provider: 02/06/19 11:17 - HPI History of Present Illness: This is a 43 y.o. female that presents to the ER for dialysis. Patient states she have supervisor fabrication Dr. Calderón and told to come to ER for dialysis until they find a clinic for scheduled treatments. Last time received dialysis was on . PMH ESRD, HTN, and anemia - Exam Vital Signs: Vital Signs 02/06/19 11:17 Temperature 98.5 F Pulse Rate 120 H Respiratory 16 Rate Blood Pressure 135/92 [Right] O2 Sat by Pulse 97 Oximetry MSE screening note: Focused history and physical exam performed. Due to findings the following was ordered: Labs Main ED ED Disposition for MSE Condition: Stable
[2019-02-06 14:07] LABS: Basophils # (Auto) 0.1 K/mm3 (0.0-0.1); Basophils % (Auto) 0.7 % (0.0-1.8); Eosinophils # (Auto) 0.4 K/mm3 (0.0-0.4); Eosinophils % (Auto) 4.9 % (0.0-4.3); Hematocrit 25.5 % (30.3-42.9); Lymphocytes # (Auto) 1.3 K/mm3 (1.2-5.4); Lymphocytes % (Auto) 16.6 % (13.4-35.0); Mean Corpuscular HGB Conc 32 % (30-34); Mean Corpuscular Volume 93 fl (79-97); Monocytes # (Auto) 0.8 K/mm3 (0.0-0.8); Platelet Count 376 K/mm3 (140-440); Red Blood Count 2.74 M/mm3 (3.65-5.03); Red Cell Distribution Width 17.5 % (13.2-15.2)
--- NOTE | 2019-02-06 14:14 | Emergency Department Report ---
HPI - General Chief Complaint: Medical Clearance Time Seen by Provider: 02/06/19 11:17 - HPI HPI: 43-year-old -Maltese female presents to the emergency department to get dialysis. The patient recently started dialysis and had a chest port placed at [facility]. She does not have an assigned clinic yet, and therefore says that she is supposed to come to the emergency department to get dialysis. 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 She complains of some shortness of breath but denies any fever, chest pain, edema. No recent travel or sick contacts at home. ED Past Medical Hx - Past Medical History Hx Congestive Heart Failure: No Hx Diabetes: No Hx Renal Disease: Yes Hx Asthma: No Hx COPD: No Hx HIV: No Additional medical history: Fluid on brain - Surgical History Hx Cholecystectomy: Yes Additional Surgical History: C- Section, 3 hernia repairs, gallbladder removed - Social History Smoking Status: Current Every Day Smoker Substance Use Type: None - Medications Home Medications: Home Medications Medication Instructions Recorded Confirmed Last Taken Type oxyCODONE /ACETAMINOPHEN [Percocet 1 tab PO Q6H PRN #14 tablet 02/03/19 Unknown Rx 5/325 mg] ED Review of Systems ROS: Stated complaint: DIALYSIS Other details as noted in HPI Comment: All other systems reviewed and negative Constitutional: denies: chills, fever Eyes: denies: eye pain, vision change ENT: denies: ear pain, throat pain Respiratory: shortness of breath. denies: cough Cardiovascular: denies: chest pain, edema Gastrointestinal: denies: abdominal pain, vomiting Genitourinary: denies: dysuria, discharge Musculoskeletal: denies: back pain, arthralgia Skin: denies: rash, lesions Neurological: denies: headache, weakness Physical Exam - Physical Exam Vital Signs: Vital Signs 02/06/19 11:17 Temperature 98.5 F Pulse Rate 120 H Respiratory 16 Rate Blood Pressure 135/92 [Right] O2 Sat by Pulse 97 Oximetry Physical Exam: GENERAL: The patient is well-developed well-nourished. HENT: Normocephalic. Atraumatic. Patient has moist mucous membranes. EYES: Extraocular motions are intact. Pupils equal reactive to light bilaterally. NECK: Supple. Trachea is midline. CHEST/LUNGS: Mild coarse breath sounds. No tachypnea or accessory muscle use.. There is no respiratory distress noted. Right-sided chest port in place. HEART/CARDIOVASCULAR: Regular. There is mild tachycardia. There is no murmur. ABDOMEN: Abdomen is soft, nontender. Patient has normal bowel sounds. There is no abdominal distention. SKIN: Skin is warm and dry. NEURO: The patient is awake, alert, and oriented. The patient is cooperative. The patient has no focal neurologic deficits. The patient has normal speech. MUSCULOSKELETAL: There is no tenderness or deformity. There is no evidence of acute injury. ED Course Vital Signs 02/06/19 11:17 Temperature 98.5 F Pulse Rate 120 H Respiratory 16 Rate Blood Pressure 135/92 [Right] O2 Sat by Pulse 97 Oximetry - Consultations Consultation #1: 02/06/19 15:05 I spoke with the patient's police reserves commander, Dr. Calderón, who has recommended admission to the hospital where he will consult on the patient and most likely get her dialysis tomorrow. ED Medical Decision Making - Lab Data Result diagrams: 02/06/19 13:45 02/06/19 13:45 - EKG Data -: EKG Interpreted by Me EKG shows normal: sinus rhythm, axis, intervals, QRS complexes, ST-T waves Rate: tachycardia (106 bpm) - EKG Data When compared to previous EKG there are: previous EKG unavailable Interpretation: normal EKG - Radiology Data Radiology results: image reviewed interpreted by me: Chest x-ray shows some mild cardiomegaly and some pulmonary vascular congestion. No pneumonia. No pneumothorax. - Medical Decision Making Patient presents with a complaint of some shortness of breath and is due for dialysis. She was last here about 5 days ago and goes to the emergency [facility] for [facility] as she is currently unassigned to a clinic. Chest x-ray does not show any acute process. Labs show some mild hyperkalemia, anemia of chronic kidney disease that appears consistent with previous visits. I spoke with the patient's police reserves commander who will consult on the patient and most likely provide dialysis tomorrow. The patient has been accepted for admission by the hospitalist, Dr. Singh. - Differential Diagnosis CHF, Pneumonia, Asthma, Bronchitis Critical Care Time: No Critical care attestation.: If time is entered above; I have spent that time in minutes in the direct care of this critically ill patient, excluding procedure time. ED Disposition Clinical Impression: End-stage renal disease needing dialysis, Hyperkalemia Hypertension Qualifiers: Hypertension type: essential hypertension Qualified Code(s): I10 - Essential (primary) hypertension Disposition: 09 OP ADMIT IP TO THIS HOSP Is pt being admited?: Yes Condition: Fair Instructions: Hypertension (ED) Referrals: PRIMARY CARE, [Primary Care Provider] - 3-5 Days Time of Disposition: 15:03
[2019-02-06 14:16] LABS: INR 0.99 (0.87-1.13)
[2019-02-06 14:17] LABS: Partial Thromboplastin Time 27.7 Sec. (24.2-36.6)
[2019-02-06 14:28] LABS: Albumin 3.1 g/dL (3.9-5); BUN/Creatinine Ratio 6; Blood Urea Nitrogen 65 mg/dL (7-17); Calcium 10.2 mg/dL (8.4-10.2); Hemolysis Index 10
[2019-02-06 14:29] LABS: Alanine Aminotransferase < 5 units/L (7-56)
--- NOTE | 2019-02-06 15:09 | XRay Report ---
AP CHEST: HISTORY: Short of breath AP view of the chest demonstrates a normal mediastinal and cardiac contour with clear lungs and normal bony and soft tissue structures. Right IJ venous catheter remains in good position since the exam 4 days ago. IMPRESSION: Unremarkable AP chest.
--- NOTE | 2019-02-06 15:33 | Consultation ---
History of Present Illness - Reason for Consult Consult date: 02/06/19 end stage renal disease, hyperkalemia, metabolic acidosis - History of Present Illness The patient is a 43 YO female who is known to our servicewith history significant for HLD, Anemia, ESRD and Medical non-complaince who presented to [facility] ED for need of hemodialysis. Patient is currently not established with any dialysis unit. She was last dialyzed on 02/02/2019 at this facility. Patient denies any N, V, D, abd pain, cp, cough, sob, dizziness, syncope, leg swelling, fever, chills, rash, dysuria or hematuria. Labs significant for K 5.2 and Hb 8. Nephrology was consulted for further evaluation and treatment. Past History Past Medical History: anemia, dialysis, ESRD Medications and Allergies Allergies Allergy/AdvReac Type Severity Reaction Status Date / Time No Known Allergies Allergy Verified 02/06/19 10:59 Home Medications Medication Instructions Recorded Confirmed Last Taken Type Percocet 5/325 mg 1 tab PO Q4H PRN 02/07/19 02/07/19 02/03/19 History Review of Systems Constitutional: no weight loss, no weight gain, no fever, no chills, no anorexia, no fatigue, no weakness, no poor appetite Breasts: deferred Cardiovascular: dyspnea on exertion, no chest pain, no orthopnea, no edema, no syncope, no lightheadedness, no shortness of breath, no high blood pressure, no leg edema Respiratory: dyspnea on exertion, no cough, no hemoptysis, no shortness of breat h Gastrointestinal: no abdominal pain, no nausea, no vomiting, no diarrhea, no hematemesis Genitourinary Female: no dysuria, no hematuria Rectal: no bleeding Musculoskeletal: no muscle weakness Integumentary: no rash, no wounds, no jaundice Neurological: no paralysis, no weakness, no convulsions, no change in speech, no change in mentation, no confusion, no memory loss Psychiatric: no memory loss Exam - Vital Signs Vital signs: Vital Signs Temp Pulse Resp BP Pulse Ox 98.5 F 120 H 16 135/92 97 02/06/19 11:17 02/06/19 11:17 02/06/19 11:17 02/06/19 11:17 02/06/19 11:17 - General Appearance General appearance: well-developed, well-nourished, appears stated age, obese, other (not in distress, R IJ tunnel catheter) EENT: ATNC, PERRL, mucous membranes moist, hearing intact, vision intact Neck: Present: neck supple, trachea midline Respiratory: Clear to Ascultation Heart: regular, S1S2, no murmurs Gastrointestinal: Present: normoactive bowel sounds. Absent: tenderness, distended Integumentary: no rash, warm and dry Neurologic: no focal deficit, no asterixis, alert and oriented x3 Musculoskeletal: Present: other (no edema) Psychiatric: cooperative Results - Lab Results 02/06/19 13:45 02/06/19 13:45 Most recent lab results Calcium 10.2 mg/dL (8.4-10.2) 02/06/19 13:45 Assessment and Plan 1. ESRD: Patient was last dialyzed 4 days ago. Plan to do HD tomorrow. 2. FEN: Hyperkalemia, kayexalate today. HD tomorrow. Metabolic acidosis, monitor. Monitor lytes. 3. Anemia: Epogen. 4. Compliance encouraged.
[2019-02-06] MEDS ORDERED: KIONEX ONE (16:48)
[2019-02-06] MEDS: KIONEX PR ONE ×2 (17:05→17:07)
[2019-02-06] MEDS ORDERED: KIONEX PO ONE (17:05)
[2019-02-06] MEDS ORDERED: MORPHINE IV PRN (17:19)
[2019-02-06] MEDS ORDERED: TYLENOL PO PRN (17:19)
[2019-02-06] MEDS ORDERED: SODIUM CHLORIDE FLUSH SYRINGE 10 ML IV PRN (17:19)
--- NOTE | 2019-02-06 17:24 | Event Note ---
Date: 02/06/19 See history and physical in the reports End-stage renal disease needing dialysis Patient does not have a dialysis chair Comes here when necessary for hemodialysis Case management consulted
--- NOTE | 2019-02-06 17:44 | History and Physical Report ---
CHIEF COMPLAINT: The patient comes in for dialysis. HISTORY OF PRESENT ILLNESS: A 43-year-old with history of end-stage renal disease, who does not have a permanent dialysis, comes in whenever she wants to get dialysis to the Emergency Room. The patient started dialysis recently and had a chest port placed at [facility]. She does not have an assigned clinic yet. Complains of some shortness of breath. No fever, no chills. Last dialysis was about 4 days ago. No recent travel. No cough. No fever or chills. PAST MEDICAL HISTORY: Significant end-stage renal disease and hypertension. PAST SURGICAL HISTORY: Cholecystectomy, , three hernia repairs, port on the right side of the chest. SOCIAL HISTORY: Does smokes about a half a pack to 3/4 pack a day. REVIEW OF SYSTEMS: Significant for increasing fatigue and shortness of breath. Some orthopnea present. No chest pain. Otherwise, review of systems negative. A 14-point review of systems done. PHYSICAL EXAMINATION: GENERAL: Middle-aged female, cooperative during examination. VITAL SIGNS: Blood pressure is 146/89, temperature is 98, pulse is 100, respirations 16, sats 100%. HEENT: Unremarkable. Pupils equal and reactive. NECK: Supple, no lymphadenopathy, no thyromegaly. LUNGS: Clear to auscultation and percussion. Good air entry. CARDIOVASCULAR: S1, S2 heard. No gallop, no murmur, no rub. Apical impulse in left fifth intercostal space and midclavicular line. ABDOMEN: Soft and benign. No hepatosplenomegaly. No guarding, no rigidity. Hernial orifices are normal. EXTREMITIES: Good pedal pulses. No pedal edema. CENTRAL NERVOUS SYSTEM: Alert and oriented x 4, nonfocal exam. SKIN: Normal. LABORATORY DATA: Significant for white count of 7800, H and H is 8.0 and 25.5, platelet count is 376,000. Protime is 13.7, PTT is 27.7. Sodium is 139, potassium is 5.2, bicarbonate is 21, BUN and creatinine 65 and 10.4, AST is 80, ALT is less than 5, alkaline phosphatase is 146, albumin is 3.1. Chest x-ray shows unremarkable AP chest. ASSESSMENT AND PLAN: 1. End-stage renal disease, needing dialysis. The patient to get hemodialysis today or tomorrow morning. Dialysis is not emergent. 2. Volume overload, needs hemodialysis. Within the next 12-16 hours. 3. Hypertension. The patient initiated on Losartan 50 mg daily. 4. Hyperkalemia, mild. Calcium gluconate given and also Kayexalate given. Kayexalate was given by the ER physician. 5. Deep venous thrombosis prophylaxis, heparin 5000 q.12. JOB# [id number] VSM/NTS
[2019-02-06] MEDS ORDERED: COZAAR PO SCH (18:00)
[2019-02-06] MEDS ORDERED: CALCIUM GLUCONATE 2,000 MG in NACL 0.9% 100 ML IV ONE (18:32)
[2019-02-06] MEDS: LOPRESSOR PO SCH ×2 (19:21→23:36)
[2019-02-06] MEDS: PERCOCET 5/325 PO PRN (19:39)
[2019-02-06] MEDS: HEPARIN SUB-Q SCH (23:38)
[2019-02-06] MEDS: SODIUM CHLORIDE FLUSH SYRINGE 10 ML IV SCH (23:39)
[2019-02-07] MEDS: PERCOCET 5/325 PO PRN ×3 (02:36→18:26)
--- NOTE | 2019-02-07 08:21 | Discharge Summary ---
Providers - Providers Date of Admission: 02/06/19 15:03 Attending physician: DANIEL KAM MD 02/06/19 15:00 Consult to Physician [CONS] Routine Comment: Consulting Provider: CHIQUIS LOPEZ Physician Instructions: Reason For Exam: dialysis Primary care physician: ROYCE MAGALLANES MD Hospitalization Condition: Fair Exam - Constitutional Vitals: Temp Pulse Resp BP Pulse Ox 97.8 F 95 H 20 112/64 99 02/07/19 04:07 02/07/19 04:07 02/07/19 04:07 02/07/19 04:07 02/07/19 04:07 Plan Follow up with: ROYCE MAGALLANES MD [Primary Care Provider] - 3-5 Days
[2019-02-07] MEDS: ZOFRAN IV PRN (08:47)
[2019-02-07] MEDS: HEPARIN SUB-Q SCH ×3 (09:01→21:32)
[2019-02-07] MEDS: LOPRESSOR PO SCH ×2 (09:01→21:29)
[2019-02-07] MEDS: SODIUM CHLORIDE FLUSH SYRINGE 10 ML IV SCH ×2 (09:02→21:29)
[2019-02-07] MEDS ORDERED: PROCRIT SUB-Q PRN (10:14)
[2019-02-07] MEDS ORDERED: NACL 0.9% 100 ML IV PRN (10:14)
--- NOTE | 2019-02-07 10:52 | Progress Note ---
Assessment and Plan Assessment and plan: 43-year-old woman who is end-stage renal disease who has been noncompliant with dialysis recently. Who presented with shortness of breath. The patient is now willing to be placed in outpatient dialysis. End-stage renal disease needing dialysis Volume overload Anemia Hyperkalemia Hypertension HD per nephrology awaiting HD placement Heparin sq for dvt ppx History Interval history: Review of systems Constitutional: No fevers, no malaise, no joint pains CVS: No chest pain, no orthopnea, no pedal edema GI: No abdominal pain, no diarrhea, no vomiting, no constipation Respiratory: No shortness of breath, no wheezing, no coughing Hospitalist Physical - Physical exam Narrative exam: General.: Appears well, no distress, nontoxic HEENT: Moist mucous membranes, extraocular muscles intact, no lymphadenopathy Neck: supple Cardiac: S1-S2 heard Lungs: clear to auscultation bilaterally Abdomen: soft , nontender, nondistended, bowel sounds positive Extremities: no edema clubbing or cyanosis Skin: no rash or lesions Neurologic: no gross focal deficits Psych: calm, and cooperative - Constitutional Vitals: Temp Pulse Resp BP Pulse Ox 97.8 F 95 H 20 112/64 99 02/07/19 04:07 02/07/19 04:07 02/07/19 04:07 02/07/19 04:07 02/07/19 04:07 Results - Labs CBC & Chem 7: 02/06/19 13:45 02/07/19 19:43 Labs: Laboratory Last Values WBC 7.8 K/mm3 (4.5-11.0) 02/06/19 13:45 RBC 2.74 M/mm3 (3.65-5.03) L 02/06/19 13:45 Hgb 8.0 gm/dl (10.1-14.3) L 02/06/19 13:45 Hct 25.5 % (30.3-42.9) L 02/06/19 13:45 MCV 93 fl (79-97) 02/06/19 13:45 MCH 29 pg (28-32) 02/06/19 13:45 MCHC 32 % (30-34) 02/06/19 13:45 RDW 17.5 % (13.2-15.2) H 02/06/19 13:45 Plt Count 376 K/mm3 (140-440) 02/06/19 13:45 Lymph % (Auto) 16.6 % (13.4-35.0) 02/06/19 13:45 Warrick % (Auto) 10.0 % (0.0-7.3) H 02/06/19 13:45 Eos % (Auto) 4.9 % (0.0-4.3) H 02/06/19 13:45 Baso % (Auto) 0.7 % (0.0-1.8) 02/06/19 13:45 Lymph # 1.3 K/mm3 (1.2-5.4) 02/06/19 13:45 Warrick # 0.8 K/mm3 (0.0-0.8) 02/06/19 13:45 Eos # 0.4 K/mm3 (0.0-0.4) 02/06/19 13:45 Baso # 0.1 K/mm3 (0.0-0.1) 02/06/19 13:45 Seg Neutrophils % 67.8 % (40.0-70.0) 02/06/19 13:45 Seg Neutrophils # 5.3 K/mm3 (1.8-7.7) 02/06/19 13:45 PT 13.7 Sec. (12.2-14.9) 02/06/19 13:45 INR 0.99 (0.87-1.13) 02/06/19 13:45 APTT 27.7 Sec. (24.2-36.6) 02/06/19 13:45 Sodium 139 mmol/L (137-145) 02/06/19 13:45 Potassium 5.2 mmol/L (3.6-5.0) H 02/06/19 13:45 Chloride 97.7 mmol/L (98-107) L 02/06/19 13:45 Carbon Dioxide 21 mmol/L (22-30) L 02/06/19 13:45 26 mmol/L 02/06/19 13:45 BUN 65 mg/dL (7-17) H 02/06/19 13:45 10.4 mg/dL (0.7-1.2) H D 02/06/19 13:45 Estimated GFR 5 ml/min 02/06/19 13:45 6 % 02/06/19 13:45 Glucose 79 mg/dL (65-100) 02/06/19 13:45 Calcium 10.2 mg/dL (8.4-10.2) 02/06/19 13:45 0.20 mg/dL (0.1-1.2) 02/06/19 13:45 AST 8 units/L (5-40) 02/06/19 13:45 ALT < 5 units/L (7-56) L 02/06/19 13:45 146 units/L (35-129) H 02/06/19 13:45 7.5 g/dL (6.3-8.2) 02/06/19 13:45 3.1 g/dL (3.9-5) L 02/06/19 13:45 0.7 % 02/06/19 13:45 Active Medications - Current Medications Current Medications: Generic Name Dose Route Start Last Admin Trade Name Freq PRN Reason Stop Dose Admin Acetaminophen 650 mg 02/06/19 17:19 Tylenol PO Q4H PRN Pain MILD(1-3)/Fever >100.5/BROWN Epoetin Conor 20,000 unit 02/07/19 10:14 Procrit SUB-Q GOPI PRN hemodialysis Heparin Sodium (Porcine) 5,000 unit 02/06/19 22:00 02/07/19 09:01 Heparin SUB-Q Not Given Q12HR [facility] Sodium Chloride 100 mls @ 999 mls/hr 02/07/19 10:14 Nacl 0.9% IV GOPI PRN Hypotension Metoprolol Tartrate 25 mg 02/06/19 16:00 02/07/19 09:01 Lopressor PO 25 mg BID [facility]INCESS Administration Morphine Sulfate 2 mg 02/06/19 17:19 Morphine IV Q4H PRN Pain, Moderate (4-6) Ondansetron HCl 4 mg 02/06/19 17:19 02/07/19 08:47 Zofran IV 4 mg Q8H PRN Administration Nausea And Vomiting Oxycodone/Acetaminophen 1 tab 02/06/19 17:19 02/07/19 08:48 Percocet 5/325 PO 1 tab Q6H PRN Administration Pain, Moderate (4-6) Sodium Chloride 10 ml 02/06/19 22:00 02/07/19 09:02 Sodium Chloride Flush Syringe 10 Ml IV 10 ml BID PRINCESS Administration Sodium Chloride 10 ml 02/06/19 17:19 02/06/19 19:48 Sodium Chloride Flush Syringe 10 Ml IV 10 ml PRN PRN Administration LINE FLUSH
--- NOTE | 2019-02-07 13:47 | Progress Note ---
Assessment and Plan 1. ESRD: Patient was last dialyzed 5 days ago. Continue HD as ordered. 2. FEN: Hyperkalemia, HD today. Metabolic acidosis, HD today. Monitor lytes. 3. Anemia: Epogen with HD. 4. Compliance encouraged. Patient is willing to stay in the hospital while CM arrange outpatient HD chair. Subjective Date of service: 02/07/19 Interval history: Patient was seen and examined while on HD. Objective - Vital Signs Vital signs: Vital Signs - 12hr 02/07/19 02/07/19 02/07/19 02:36 03:36 04:07 Temperature 97.8 F Pulse Rate 95 H Respiratory 18 18 20 Rate Blood Pressure 112/64 O2 Sat by Pulse 99 Oximetry - General Appearance General appearance: well-developed, well-nourished, appears stated age, obese, other (no distress, R IJ Tunnel catheter) EENT: ATNC, PERRL, hearing intact, vision intact Neck: supple Respiratory: Present: Clear to Ascultation Cardiology: regular, S1S2, no murmurs Gastrointestinal: normoactive bowel sounds, no tenderness, no distended Integumentary: no rash, warm and dry Neurologic: no focal deficit, no asterixis, alert and oriented x3 Musculoskeletal: other (no edema) Psychiatric: cooperative - Lab 02/06/19 13:45 02/06/19 13:45 Most recent lab results Calcium 10.2 mg/dL (8.4-10.2) 02/06/19 13:45 Medications & Allergies - Medications Allergies/Adverse Reactions: Allergies No Known Allergies Allergy (Verified 02/06/19 10:59) Home Medications: Home Medications Medication Instructions Recorded Confirmed Last Taken Type Percocet 5/325 mg 1 tab PO Q4H PRN 02/07/19 02/07/19 02/03/19 History Active Medications: Generic Name Dose Route Start Last Admin Trade Name Freq PRN Reason Stop Dose Admin Acetaminophen 650 mg 02/06/19 17:19 Tylenol PO Q4H PRN Pain MILD(1-3)/Fever >100.5/BROWN Epoetin Conor 20,000 unit 02/07/19 10:14 Procrit SUB-Q GOPI PRN hemodialysis Heparin Sodium (Porcine) 5,000 unit 02/06/19 22:00 02/07/19 09:01 Heparin SUB-Q Not Given Q12HR [facility] Sodium Chloride 100 mls @ 999 mls/hr 02/07/19 10:14 Nacl 0.9% IV GOPI PRN Hypotension Metoprolol Tartrate 25 mg 02/06/19 16:00 02/07/19 09:01 Lopressor PO 25 mg BID PRINCESS Administration Morphine Sulfate 2 mg 02/06/19 17:19 Morphine IV Q4H PRN Pain, Moderate (4-6) Ondansetron HCl 4 mg 02/06/19 17:19 02/07/19 08:47 Zofran IV 4 mg Q8H PRN Administration Nausea And Vomiting Oxycodone/Acetaminophen 1 tab 02/06/19 17:19 02/07/19 08:48 Percocet 5/325 PO 1 tab Q6H PRN Administration Pain, Moderate (4-6) Sodium Chloride 10 ml 02/06/19 22:00 02/07/19 09:02 Sodium Chloride Flush Syringe 10 Ml IV 10 ml BID PRINCESS Administration Sodium Chloride 10 ml 02/06/19 17:19 02/06/19 19:48 Sodium Chloride Flush Syringe 10 Ml IV 10 ml PRN PRN Administration LINE FLUSH
--- NOTE | 2019-02-07 15:42 | Consultation ---
History of Present Illness - Reason for Consult Consult date: 02/07/19 long-term dialysis access - History of Present Illness Patient with a history of end-stage renal disease on hemodialysis the use of a PermCath. Seeming dialysis, the examination. Patient has not yet been evaluated for long-term access. She is right-handed Past History Past Medical History: dialysis, ESRD Medications and Allergies Allergies Allergy/AdvReac Type Severity Reaction Status Date / Time No Known Allergies Allergy Verified 02/06/19 10:59 Home Medications Medication Instructions Recorded Confirmed Last Taken Type Percocet 5/325 mg 1 tab PO Q4H PRN 02/07/19 02/07/19 02/03/19 History Active Meds: Active Medications Acetaminophen (Tylenol) 650 mg PO Q4H PRN PRN Reason: Pain MILD(1-3)/Fever >100.5/BROWN Epoetin Conor (Procrit) 20,000 unit SUB-Q GOPI PRN PRN Reason: hemodialysis Heparin Sodium (Porcine) (Heparin) 5,000 unit SUB-Q Q12HR [facility] Last Admin: 02/07/19 09:01 Dose: Not Given Documented by: Sodium Chloride (Nacl 0.9%) 100 mls @ 999 mls/hr IV GOPI PRN PRN Reason: Hypotension Metoprolol Tartrate (Lopressor) 25 mg PO BID [facility] Last Admin: 02/07/19 09:01 Dose: 25 mg Documented by: Morphine Sulfate (Morphine) 2 mg IV Q4H PRN PRN Reason: Pain, Moderate (4-6) Ondansetron HCl (Zofran) 4 mg IV Q8H PRN PRN Reason: Nausea And Vomiting Last Admin: 02/07/19 08:47 Dose: 4 mg Documented by: Oxycodone/Acetaminophen (Percocet 5/325) 1 tab PO Q6H PRN PRN Reason: Pain, Moderate (4-6) Last Admin: 02/07/19 08:48 Dose: 1 tab Documented by: Sodium Chloride (Sodium Chloride Flush Syringe 10 Ml) 10 ml IV BID [facility] Last Admin: 02/07/19 09:02 Dose: 10 ml Documented by: Sodium Chloride (Sodium Chloride Flush Syringe 10 Ml) 10 ml IV PRN PRN PRN Reason: LINE FLUSH Last Admin: 02/06/19 19:48 Dose: 10 ml Documented by: Review of Systems All systems: negative Exam - Constitutional Vitals: Temp Pulse Resp BP Pulse Ox 97.8 F 95 H 20 112/64 99 02/07/19 04:07 02/07/19 04:07 02/07/19 04:07 02/07/19 04:07 02/07/19 04:07 General appearance: Present: no acute distress - EENT Eyes: Present: EOM intact ENT: hearing intact - Neck Neck: Present: supple, normal ROM - Respiratory Respiratory effort: normal - Extremities Extremities: no ischemia - Abdominal General gastrointestinal: Present: deferred Female genitourinary: Present: deferred - Rectal Rectal Exam: deferred - Psychiatric Psychiatric: cooperative Results - Labs CBC & Chem 7: 02/06/19 13:45 02/06/19 13:45 Assessment and Plan Patient will be scheduled for an ultrasound for venous mapping. We'll plan on creation of fistula/graft within the next several days
[2019-02-07] MEDS ORDERED: NACL 0.9 (PRIMING MACHINE ONLY DIALYSIS) MC ONE (16:55)
[2019-02-07] MEDS ORDERED: SENOKOT S PO PRN (17:11)
[2019-02-07 17:25] LABS: Alanine Aminotransferase < 5 units/L (7-56); Bilirubin,Direct < 0.2 mg/dL (0-0.2)
[2019-02-07 17:29] LABS: Hepatitis B Surface Antigen Non-Reactive (Negative); Hepatitis C Virus Antibody Non-Reactive (NonReactive)
[2019-02-07] MEDS: MIRALAX 3350 PO SCH (18:27)
[2019-02-07 20:39] LABS: Calcium 9.6 mg/dL (8.4-10.2)
[2019-02-08] MEDS: ZOFRAN IV PRN ×2 (01:57→18:44)
[2019-02-08] MEDS: PERCOCET 5/325 PO PRN ×3 (01:57→18:44)
--- NOTE | 2019-02-08 08:39 | Progress Note ---
Assessment and Plan Patient with a history of end-stage renal disease awaiting a dialysis bed. We will obtain vascular lab mapping on the patient today. The patient states that due to childcare issues, she will be leaving the hospital either later today or tomorrow however, she will return on Wednesday and will be available for at least a week. We will plan on creation of an fistula or graft Wednesday or Wednesday of next week given the patient's schedule. Subjective Date of service: 02/08/19 Principal diagnosis: ESRD Interval history: Patient with history of end-stage renal disease on hemodialysis who is awaiting placement in a dialysis bed. The patient is currently dialyzing through a tunneled hemodialysis catheter. Awaiting vascular mapping from ultrasound. Objective - Constitutional Vitals: Vital Signs - 12hr 02/07/19 02/08/19 23:12 05:51 Temperature 97.6 F 97.7 F Pulse Rate 103 H 97 H Respiratory 18 18 Rate Blood Pressure 116/68 113/75 O2 Sat by Pulse 98 97 Oximetry General appearance: Present: no acute distress - EENT Eyes: PERRL ENT: hearing intact - Neck Neck: supple, normal ROM - Respiratory Respiratory effort: normal - Gastrointestinal General gastrointestinal: Present: deferred Rectal Exam: deferred - Genitourinary Female genitourinary: deferred - Psychiatric Psychiatric: appropriate mood/affect, cooperative - Labs CBC & Chem 7: 02/06/19 13:45 02/07/19 19:43 Labs: Abnormal lab results 02/07/19 02/07/19 Range/Units 16:36 19:43 Chloride 96.3 L (98-107) mmol/L BUN 35 H (7-17) mg/dL Creatinine 6.1 H (0.7-1.2) mg/dL Glucose 105 H (65-100) mg/dL ALT < 5 L (7-56) units/L Alkaline Phosphatase 136 H (35-129) units/L Total Protein 6.1 L (6.3-8.2) g/dL Albumin 3.0 L (3.9-5) g/dL Medications & Allergies - Medications Allergies/Adverse Reactions: Allergies No Known Allergies Allergy (Verified 02/06/19 10:59) Home Medications: Home Medications Medication Instructions Recorded Confirmed Last Taken Type Percocet 5/325 mg 1 tab PO Q4H PRN 02/07/19 02/07/19 02/03/19 History Active Medications: Generic Name Dose Route Start Last Admin Trade Name Freq PRN Reason Stop Dose Admin Acetaminophen 650 mg 02/06/19 17:19 Tylenol PO Q4H PRN Pain MILD(1-3)/Fever >100.5/BROWN Epoetin Conor 20,000 unit 02/07/19 10:14 Procrit SUB-Q GOPI PRN hemodialysis Heparin Sodium (Porcine) 5,000 unit 02/06/19 22:00 02/07/19 21:32 Heparin SUB-Q Not Given Q12HR [facility] Sodium Chloride 100 mls @ 999 mls/hr 02/07/19 10:14 Nacl 0.9% IV GOPI PRN Hypotension Metoprolol Tartrate 25 mg 02/06/19 16:00 02/07/19 21:29 Lopressor PO Not Given BID PRINCESS Morphine Sulfate 2 mg 02/06/19 17:19 Morphine IV Q4H PRN Pain, Moderate (4-6) Ondansetron HCl 4 mg 02/06/19 17:19 02/08/19 01:57 Zofran IV 4 mg Q8H PRN Administration Nausea And Vomiting Oxycodone/Acetaminophen 1 tab 02/06/19 17:19 02/08/19 01:57 Percocet 5/325 PO 1 tab Q6H PRN Administration Pain, Moderate (4-6) Polyethylene Glycol 17 gm 02/07/19 18:00 02/07/19 18:27 Miralax 3350 PO 17 gm QDAY PRINCESS Administration Senna/Docusate Sodium 2 tab 02/07/19 17:11 Senokot S PO Q12H PRN Constipation Sodium Chloride 10 ml 02/06/19 22:00 02/07/19 21:29 Sodium Chloride Flush Syringe 10 Ml IV 10 ml BID PRINCESS Administration Sodium Chloride 10 ml 02/06/19 17:19 02/06/19 19:48 Sodium Chloride Flush Syringe 10 Ml IV 10 ml PRN PRN Administration LINE FLUSH
--- NOTE | 2019-02-08 08:50 | Progress Note ---
Assessment and Plan 1. ESRD: Patient was last dialyzed yesterday. Plan for HD tomorrow. Await outpatient HD chair. 2. FEN: Hyperkalemia, s/p HD yesterday. Metabolic acidosis, s/p HD yesterday. Monitor lytes. 3. Anemia: Epogen with HD. 4. Vascular access: Followed by Vascular. 5. Compliance encouraged. Subjective Date of service: 02/08/19 Principal diagnosis: ESRD Interval history: Patient was seen and examined at the bedside. Doing ok. Objective - Vital Signs Vital signs: Vital Signs - 12hr 02/07/19 02/08/19 23:12 05:51 Temperature 97.6 F 97.7 F Pulse Rate 103 H 97 H Respiratory 18 18 Rate Blood Pressure 116/68 113/75 O2 Sat by Pulse 98 97 Oximetry - General Appearance General appearance: well-developed, well-nourished, appears stated age, obese, other (not in distress, R IJ tunnel catheter) EENT: ATNC, PERRL, mucous membranes moist, hearing intact, vision intact Neck: supple Respiratory: Present: Clear to Ascultation Cardiology: regular, S1S2, no murmurs Gastrointestinal: normoactive bowel sounds, no tenderness, no distended Integumentary: no rash, warm and dry Neurologic: no focal deficit, no asterixis, alert and oriented x3 Musculoskeletal: other (no edema) - Lab 02/06/19 13:45 02/07/19 19:43 Most recent lab results Calcium 9.6 mg/dL (8.4-10.2) 02/07/19 19:43 Medications & Allergies - Medications Allergies/Adverse Reactions: Allergies No Known Allergies Allergy (Verified 02/06/19 10:59) Home Medications: Home Medications Medication Instructions Recorded Confirmed Last Taken Type Percocet 5/325 mg 1 tab PO Q4H PRN 02/07/19 02/07/19 02/03/19 History Active Medications: Generic Name Dose Route Start Last Admin Trade Name Freq PRN Reason Stop Dose Admin Acetaminophen 650 mg 02/06/19 17:19 Tylenol PO Q4H PRN Pain MILD(1-3)/Fever >100.5/BROWN Epoetin Conor 20,000 unit 02/07/19 10:14 Procrit SUB-Q GOPI PRN hemodialysis Heparin Sodium (Porcine) 5,000 unit 02/06/19 22:00 02/07/19 21:32 Heparin SUB-Q Not Given Q12HR [facility] Sodium Chloride 100 mls @ 999 mls/hr 02/07/19 10:14 Nacl 0.9% IV GOPI PRN Hypotension Metoprolol Tartrate 25 mg 02/06/19 16:00 02/07/19 21:29 Lopressor PO Not Given BID [facility]INCESS Morphine Sulfate 2 mg 02/06/19 17:19 Morphine IV Q4H PRN Pain, Moderate (4-6) Ondansetron HCl 4 mg 02/06/19 17:19 02/08/19 01:57 Zofran IV 4 mg Q8H PRN Administration Nausea And Vomiting Oxycodone/Acetaminophen 1 tab 02/06/19 17:19 02/08/19 01:57 Percocet 5/325 PO 1 tab Q6H PRN Administration Pain, Moderate (4-6) Polyethylene Glycol 17 gm 02/07/19 18:00 02/07/19 18:27 Miralax 3350 PO 17 gm QDAY [facility]INC[facility] Administration Senna/Docusate Sodium 2 tab 02/07/19 17:11 Senokot S PO Q12H PRN Constipation Sodium Chloride 10 ml 02/06/19 22:00 02/07/19 21:29 Sodium Chloride Flush Syringe 10 Ml IV 10 ml BID PRINCESS Administration Sodium Chloride 10 ml 02/06/19 17:19 02/06/19 19:48 Sodium Chloride Flush Syringe 10 Ml IV 10 ml PRN PRN Administration LINE FLUSH
[2019-02-08] MEDS: HEPARIN SUB-Q SCH ×2 (10:00→21:28)
[2019-02-08] MEDS: SODIUM CHLORIDE FLUSH SYRINGE 10 ML IV SCH ×2 (12:05→21:28)
[2019-02-08] MEDS: MIRALAX 3350 PO SCH (12:06)
--- NOTE | 2019-02-08 12:48 | Progress Note ---
Assessment and Plan Assessment and plan: 43-year-old -[place] female presents to the emergency department to get dialysis. The patient recently started dialysis and had a chest port placed at [facility]. She does not have an assigned clinic yet, and therefore says that she is supposed to come to the emergency department to get dialysis. Her civilian jail officer is Dr. Calderón. She pw some shortness of breath, she is now willing to be placed in outpatient dialysis, ED Past Medical Hx End-stage renal disease needing dialysis Volume overload Anemia Hyperkalemia Hypertension HD per nephrology awaiting HD placement vasc sx consult appreciated, for avg as outpatient next week Heparin sq for dvt ppx Discharged when dialysis chair time has been obtained History Interval history: Review of systems Constitutional: No fevers, no malaise, no joint pains CVS: No chest pain, no orthopnea, no pedal edema GI: No abdominal pain, no diarrhea, no vomiting, no constipation Respiratory: No shortness of breath, no wheezing, no coughing Hospitalist Physical - Physical exam Narrative exam: General.: Appears well, no distress, nontoxic HEENT: Moist mucous membranes, extraocular muscles intact, no lymphadenopathy Neck: supple Cardiac: S1-S2 heard Lungs: clear to auscultation bilaterally Abdomen: soft , nontender, nondistended, bowel sounds positive Extremities: no edema clubbing or cyanosis Skin: no rash or lesions Neurologic: no gross focal deficits Psych: calm, and cooperative - Constitutional Vitals: Temp Pulse Resp BP Pulse Ox 98.3 F 95 H 20 112/72 95 02/08/19 11:23 02/08/19 11:23 02/08/19 11:23 02/08/19 11:23 02/08/19 11:23 General appearance: Present: no acute distress Results - Labs CBC & Chem 7: 02/06/19 13:45 02/07/19 19:43 Labs: Laboratory Last Values WBC 7.8 K/mm3 (4.5-11.0) 02/06/19 13:45 RBC 2.74 M/mm3 (3.65-5.03) L 02/06/19 13:45 Hgb 8.0 gm/dl (10.1-14.3) L 02/06/19 13:45 Hct 25.5 % (30.3-42.9) L 02/06/19 13:45 MCV 93 fl (79-97) 02/06/19 13:45 MCH 29 pg (28-32) 02/06/19 13:45 MCHC 32 % (30-34) 02/06/19 13:45 RDW 17.5 % (13.2-15.2) H 02/06/19 13:45 Plt Count 376 K/mm3 (140-440) 02/06/19 13:45 Lymph % (Auto) 16.6 % (13.4-35.0) 02/06/19 13:45 [place]haw % (Auto) 10.0 % (0.0-7.3) H 02/06/19 13:45 Eos % (Auto) 4.9 % (0.0-4.3) H 02/06/19 13:45 Baso % (Auto) 0.7 % (0.0-1.8) 02/06/19 13:45 Lymph # 1.3 K/mm3 (1.2-5.4) 02/06/19 13:45 [place]ershaw # 0.8 K/mm3 (0.0-0.8) 02/06/19 13:45 Eos # 0.4 K/mm3 (0.0-0.4) 02/06/19 13:45 Baso # 0.1 K/mm3 (0.0-0.1) 02/06/19 13:45 Seg Neutrophils % 67.8 % (40.0-70.0) 02/06/19 13:45 Seg Neutrophils # 5.3 K/mm3 (1.8-7.7) 02/06/19 13:45 PT 13.7 Sec. (12.2-14.9) 02/06/19 13:45 INR 0.99 (0.87-1.13) 02/06/19 13:45 APTT 27.7 Sec. (24.2-36.6) 02/06/19 13:45 Sodium 140 mmol/L (137-145) 02/07/19 19:43 Potassium 4.0 mmol/L (3.6-5.0) D 02/07/19 19:43 Chloride 96.3 mmol/L (98-107) L 02/07/19 19:43 Carbon Dioxide 24 mmol/L (22-30) 02/07/19 19:43 24 mmol/L 02/07/19 19:43 BUN 35 mg/dL (7-17) H 02/07/19 19:43 6.1 mg/dL (0.7-1.2) H 02/07/19 19:43 Estimated GFR 9 ml/min 02/07/19 19:43 6 % 02/07/19 19:43 Glucose 105 mg/dL (65-100) H 02/07/19 19:43 Calcium 9.6 mg/dL (8.4-10.2) 02/07/19 19:43 0.20 mg/dL (0.1-1.2) 02/07/19 16:36 < 0.2 mg/dL (0-0.2) 02/07/19 16:36 0.0 mg/dL 02/07/19 16:36 AST 7 units/L (5-40) 02/07/19 16:36 ALT < 5 units/L (7-56) L 02/07/19 16:36 136 units/L (35-129) H 02/07/19 16:36 6.1 g/dL (6.3-8.2) L 02/07/19 16:36 3.0 g/dL (3.9-5) L 02/07/19 16:36 1.0 % 02/07/19 16:36 Hepatitis A IgM Ab Non-reactive (NonReactive) 02/07/19 16:41 Hep Bs Antigen Non-reactive (Negative) 02/07/19 16:41 Hep B Core IgM Ab Non-reactive (NonReactive) 02/07/19 16:41 Non-reactive (NonReactive) 02/07/19 16:41 Active Medications - Current Medications Current Medications: Generic Name Dose Route Start Last Admin Trade Name Freq PRN Reason Stop Dose Admin Acetaminophen 650 mg 02/06/19 17:19 Tylenol PO Q4H PRN Pain MILD(1-3)/Fever >100.5/BROWN Epoetin Conor 20,000 unit 02/07/19 10:14 Procrit SUB-Q GOPI PRN hemodialysis Heparin Sodium (Porcine) 5,000 unit 02/06/19 22:00 02/08/19 10:00 Heparin SUB-Q Not Given Q12HR PRINCESS Sodium Chloride 100 mls @ 999 mls/hr 02/07/19 10:14 Nacl 0.9% IV GOPI PRN Hypotension Metoprolol Tartrate 25 mg 02/06/19 16:00 02/07/19 21:29 Lopressor PO Not Given BID PRINCESS Morphine Sulfate 2 mg 02/06/19 17:19 Morphine IV Q4H PRN Pain, Moderate (4-6) Ondansetron HCl 4 mg 02/06/19 17:19 02/08/19 01:57 Zofran IV 4 mg Q8H PRN Administration Nausea And Vomiting Oxycodone/Acetaminophen 1 tab 02/06/19 17:19 02/08/19 12:12 Percocet 5/325 PO 1 tab Q6H PRN Administration Pain, Moderate (4-6) Polyethylene Glycol 17 gm 02/07/19 18:00 02/08/19 12:06 Miralax 3350 PO 17 gm QDAY PRINCESS Administration Senna/Docusate Sodium 2 tab 02/07/19 17:11 Senokot S PO Q12H PRN Constipation Sodium Chloride 10 ml 02/06/19 22:00 02/08/19 12:05 Sodium Chloride Flush Syringe 10 Ml IV 10 ml BID PRINCESS Administration Sodium Chloride 10 ml 02/06/19 17:19 02/06/19 19:48 Sodium Chloride Flush Syringe 10 Ml IV 10 ml PRN PRN Administration LINE FLUSH
--- NOTE | 2019-02-08 13:27 | Vascular Lab Report ---
PROCEDURE: VL VENOUS DUPLEX UE BILAT TECHNIQUE: Duplex Doppler ultrasound of the both upper extremity veins and selected arteries and inc ompetent perforators was attempted. Barksdale scale imaging with and without compression, spectral wavefor m analysis with and without augmentation, and color flow Doppler were employed. CPT 47376 HISTORY: dialysis access COMPARISONS: None currently available. FINDINGS: [RIGHT UPPER EXTREMITY: Patent. No DVT. Cephalic vein: Shoulder 2.9 mm. Upper bicep 3.6 mm. Mid bicep 3.4 mm. Lower bicep 3.2 mm. AC fossa 2.6 mm. Upper forearm 4.0 mm. Midforearm 3.1 mm. Lower forearm 3.3 mm. Basilic vein: Upper bicep 4.2 mm. Mid bicep 3.8 mm. Lower bicep 3.0 mm. Branch measures 2.6 mm. AC fossa 4.2 mm. Upper forearm 3.3 mm. Midforearm 3.8 mm. Lower forearm 2.8 mm. Brachial artery: 3.7 mm. 75 cm/s Radial artery: 2.2 mm. 78 cm/s Ulnar artery: 1.9 mm. 69 cm/s Triphasic flow throughout. LEFT UPPER EXTREMITY: Patent. No DVT. Cephalic vein: Shoulder 2.9 mm. Upper bicep 2.8 mm. Mid bicep 2.4 mm. Lower bicep 2.7 mm. AC fossa 3.4 mm. Upper forearm 4.2 mm. Midforearm 3.5 mm. Lower forearm 3.2 mm. Basilic vein: Upper bicep 3.7 mm. Mid bicep 3.6 mm. Lower bicep 3.8 mm. Branch and measures 1.8 mm. AC fossa 3.9 mm. Upper forearm 3.6 mm. Midforearm 3.3 mm. Lower forearm 1.8 mm. Brachial artery: 4.0 mm. 73 cm/s Radial artery: 2.2 mm. 78 cm/s Ulnar artery: 1.6 mm. 63 cm/s Triphasic flow throughout. IMPRESSION: * Vascular mapping. This document is electronically signed by Cristóbal Zapata MD., Feb 08 2019 01:24:51 PM ET
[2019-02-08] MEDS: LOPRESSOR PO SCH ×2 (16:00→21:29)
[2019-02-09] MEDS ORDERED: NACL 0.9% 100 ML IV PRN (09:00)
[2019-02-09] MEDS: HEPARIN SUB-Q SCH ×2 (10:00→21:13)
[2019-02-09] MEDS: LOPRESSOR PO SCH ×2 (10:00→21:20)
--- NOTE | 2019-02-09 10:13 | Progress Note ---
Assessment and Plan 1. ESRD: Patient was last dialyzed 2 days ago. HD today. Await outpatient HD chair. 2. FEN: Hyperkalemia, improved. Metabolic acidosis, improved. Monitor lytes. 3. Anemia: Epogen with HD. 4. Vascular access: Followed by Vascular. 5. Compliance encouraged. Subjective Date of service: 02/09/19 Principal diagnosis: ESRD Interval history: Patient was seen and examined at the bedside. Doing ok. Objective - Vital Signs Vital signs: Vital Signs - 12hr 02/08/19 02/09/19 23:34 05:09 Temperature 97.5 F L 97.5 F L Pulse Rate 84 93 H Respiratory 20 20 Rate Blood Pressure 121/71 155/72 O2 Sat by Pulse 100 95 Oximetry - General Appearance General appearance: well-developed, well-nourished, appears stated age, obese, other (not in distress, R IJ tunnel catheter) EENT: ATNC, PERRL, mucous membranes moist, hearing intact, vision intact Neck: supple Respiratory: Present: Clear to Ascultation Cardiology: regular, S1S2, no murmurs Gastrointestinal: normoactive bowel sounds, no tenderness, no distended Neurologic: no focal deficit, no asterixis, alert and oriented x3 Musculoskeletal: other (no edema) - Lab 02/06/19 13:45 02/07/19 19:43 Most recent lab results Calcium 9.6 mg/dL (8.4-10.2) 02/07/19 19:43 Medications & Allergies - Medications Allergies/Adverse Reactions: Allergies No Known Allergies Allergy (Verified 02/06/19 10:59) Home Medications: Home Medications Medication Instructions Recorded Confirmed Last Taken Type Percocet 5/325 mg 1 tab PO Q4H PRN 02/07/19 02/07/19 02/03/19 History Active Medications: Generic Name Dose Route Start Last Admin Trade Name Freq PRN Reason Stop Dose Admin Acetaminophen 650 mg 02/06/19 17:19 Tylenol PO Q4H PRN Pain MILD(1-3)/Fever >100.5/BROWN Epoetin Conor 20,000 unit 02/07/19 10:14 Procrit SUB-Q GOPI PRN hemodialysis Heparin Sodium (Porcine) 5,000 unit 02/06/19 22:00 02/08/19 21:28 Heparin SUB-Q Not Given Q12HR PRINCESS Sodium Chloride 100 mls @ 999 mls/hr 02/09/19 09:00 Nacl 0.9% IV GOPI PRN Hypotension Metoprolol Tartrate 25 mg 02/06/19 16:00 02/08/19 21:29 Lopressor PO Not Given BID PRINCESS Morphine Sulfate 2 mg 02/06/19 17:19 Morphine IV Q4H PRN Pain, Moderate (4-6) Ondansetron HCl 4 mg 02/06/19 17:19 02/08/19 18:44 Zofran IV 4 mg Q8H PRN Administration Nausea And Vomiting Oxycodone/Acetaminophen 1 tab 02/06/19 17:19 02/08/19 18:44 Percocet 5/325 PO 1 tab Q6H PRN Administration Pain, Moderate (4-6) Polyethylene Glycol 17 gm 02/07/19 18:00 02/08/19 12:06 Miralax 3350 PO 17 gm QDAY PRINCESS Administration Senna/Docusate Sodium 2 tab 02/07/19 17:11 Senokot S PO Q12H PRN Constipation Sodium Chloride 10 ml 02/06/19 22:00 02/08/19 21:28 Sodium Chloride Flush Syringe 10 Ml IV 10 ml BID PRINCESS Administration Sodium Chloride 10 ml 02/06/19 17:19 02/06/19 19:48 Sodium Chloride Flush Syringe 10 Ml IV 10 ml PRN PRN Administration LINE FLUSH
[2019-02-09] MEDS: SODIUM CHLORIDE FLUSH SYRINGE 10 ML IV SCH ×2 (10:41→23:23)
[2019-02-09] MEDS ORDERED: NACL 0.9 (PRIMING MACHINE ONLY DIALYSIS) MC ONE (11:08)
[2019-02-09] MEDS: ZOFRAN IV PRN (15:17)
[2019-02-09] MEDS: PERCOCET 5/325 PO PRN (15:17)
[2019-02-09] MEDS: MIRALAX 3350 PO SCH (15:41)
--- NOTE | 2019-02-09 18:02 | Progress Note ---
Assessment and Plan End-stage renal disease needing dialysis Volume overload Anemia Hyperkalemia Hypertension HD per nephrology awaiting HD placement vasc sx consult appreciated, for avg as outpatient next week Heparin sq for dvt ppx Discharge when dialysis chair time has been obtained Subjective Date of service: 02/09/19 Principal diagnosis: ESRD Interval history: Waiting for her hemodialysis chair time Otherwise asymptomatic Objective - Constitutional Vitals: Vital Signs - 12hr 02/09/19 02/09/19 02/09/19 10:00 10:10 10:15 Temperature 97.8 F Pulse Rate 99 H 99 H 95 H Respiratory 16 Rate Blood Pressure 120/77 120/77 133/79 O2 Sat by Pulse Oximetry 02/09/19 02/09/19 02/09/19 10:30 10:45 11:03 Temperature Pulse Rate 99 H 94 H 96 H Respiratory Rate Blood Pressure 125/85 120/79 127/60 O2 Sat by Pulse Oximetry 02/09/19 02/09/19 02/09/19 11:15 11:30 11:46 Temperature Pulse Rate 96 H 92 H 90 Respiratory Rate Blood Pressure 129/77 114/72 120/67 O2 Sat by Pulse Oximetry 02/09/19 02/09/19 02/09/19 12:00 12:15 12:30 Temperature Pulse Rate 90 95 H 94 H Respiratory Rate Blood Pressure 141/85 163/85 141/55 O2 Sat by Pulse Oximetry 02/09/19 02/09/19 02/09/19 12:45 13:00 13:15 Temperature Pulse Rate 93 H 93 H 90 Respiratory Rate Blood Pressure 130/75 141/81 133/80 O2 Sat by Pulse Oximetry 02/09/19 02/09/19 02/09/19 13:30 13:53 13:56 Temperature 97.5 F L Pulse Rate 94 H 100 H 100 H Respiratory 16 Rate Blood Pressure 138/76 127/77 127/77 O2 Sat by Pulse Oximetry 02/09/19 16:46 Temperature 99.3 F Pulse Rate 113 H Respiratory 20 Rate Blood Pressure 155/90 O2 Sat by Pulse 98 Oximetry General appearance: Present: no acute distress, well-nourished - EENT Eyes: PERRL, EOM intact ENT: hearing intact, clear oral mucosa Ears: bilateral: normal - Neck Neck: supple, normal ROM - Respiratory Respiratory effort: normal Respiratory: bilateral: CTA - Breasts Breasts: normal - Cardiovascular Heart rate: 78 Rhythm: regular Heart Sounds: Present: S1 & S2. Absent: gallop, rub Extremities: no ischemia, pulses intact, No edema, normal color, Full ROM - Gastrointestinal General gastrointestinal: Present: soft, non-tender, non-distended, normal bowel sounds - Genitourinary Female genitourinary: normal - Integumentary Integumentary: clear, warm, dry - Musculoskeletal Musculoskeletal: 1, strength equal bilaterally - Neurologic Neurologic: moves all extremities - Psychiatric Psychiatric: memory intact, appropriate mood/affect, intact judgment & insight - Allied health notes Allied health notes reviewed: nursing, case management - Labs CBC & Chem 7: 02/06/19 13:45 02/07/19 19:43
[2019-02-10] MEDS: PERCOCET 5/325 PO PRN ×2 (00:17→11:47)
[2019-02-10] MEDS: ZOFRAN IV PRN ×2 (00:18→11:48)
[2019-02-10] MEDS: HEPARIN SUB-Q SCH (09:22)
[2019-02-10] MEDS: MIRALAX 3350 PO SCH (09:23)
[2019-02-10] MEDS: LOPRESSOR PO SCH (09:23)
[2019-02-10] MEDS: SODIUM CHLORIDE FLUSH SYRINGE 10 ML IV SCH (09:24)
--- NOTE | 2019-02-10 09:46 | Progress Note ---
Assessment and Plan We'll plan on fistula creation Wednesday or Wednesday of next week. Subjective Date of service: 02/10/19 Principal diagnosis: ESRD Interval history: Patient doing well. Vein mapping completed. Patient has a usable veins in her left arm for fistula creation. No complaints. Objective - Constitutional Vitals: Vital Signs - 12hr 02/09/19 02/10/19 02/10/19 23:20 05:30 09:23 Temperature 98.3 F 98.5 F Pulse Rate 110 H 104 H 102 H Respiratory 16 18 Rate Blood Pressure 116/70 134/80 O2 Sat by Pulse 96 91 Oximetry General appearance: Present: no acute distress - EENT Eyes: EOM intact ENT: hearing intact - Neck Neck: supple, normal ROM - Respiratory Respiratory effort: normal - Breasts Breasts: deferred Extremities: Full ROM - Gastrointestinal General gastrointestinal: Present: deferred Rectal Exam: deferred - Genitourinary Female genitourinary: deferred - Psychiatric Psychiatric: appropriate mood/affect, cooperative - Labs CBC & Chem 7: 02/06/19 13:45 02/07/19 19:43 Medications & Allergies - Medications Allergies/Adverse Reactions: Allergies No Known Allergies Allergy (Verified 02/06/19 10:59) Home Medications: Home Medications Medication Instructions Recorded Confirmed Last Taken Type Percocet 5/325 mg 1 tab PO Q4H PRN 02/07/19 02/07/19 02/03/19 History Active Medications: Generic Name Dose Route Start Last Admin Trade Name Freq PRN Reason Stop Dose Admin Acetaminophen 650 mg 02/06/19 17:19 Tylenol PO Q4H PRN Pain MILD(1-3)/Fever >100.5/BROWN Epoetin Conor 20,000 unit 02/07/19 10:14 02/09/19 11:08 Procrit SUB-Q 20,000 unit GOPI PRN Administration hemodialysis Heparin Sodium (Porcine) 5,000 unit 02/06/19 22:00 02/10/19 09:22 Heparin SUB-Q Not Given Q12HR PRINCESS Sodium Chloride 100 mls @ 999 mls/hr 02/09/19 09:00 Nacl 0.9% IV GOPI PRN Hypotension Metoprolol Tartrate 25 mg 02/06/19 16:00 02/10/19 09:23 Lopressor PO 25 mg BID PRINCESS Administration Morphine Sulfate 2 mg 02/06/19 17:19 Morphine IV Q4H PRN Pain, Moderate (4-6) Ondansetron HCl 4 mg 02/06/19 17:19 02/10/19 00:18 Zofran IV 4 mg Q8H PRN Administration Nausea And Vomiting Oxycodone/Acetaminophen 1 tab 02/06/19 17:19 02/10/19 00:17 Percocet 5/325 PO 1 tab Q6H PRN Administration Pain, Moderate (4-6) Polyethylene Glycol 17 gm 02/07/19 18:00 02/10/19 09:23 Miralax 3350 PO Not Given QDAY PRINCESS Senna/Docusate Sodium 2 tab 02/07/19 17:11 Senokot S PO Q12H PRN Constipation Sodium Chloride 10 ml 02/06/19 22:00 02/10/19 09:24 Sodium Chloride Flush Syringe 10 Ml IV Not Given BID PRINCESS Sodium Chloride 10 ml 02/06/19 17:19 02/06/19 19:48 Sodium Chloride Flush Syringe 10 Ml IV 10 ml PRN PRN Administration LINE FLUSH
--- NOTE | 2019-02-10 12:21 | Progress Note ---
Assessment and Plan 1. ESRD: Patient was last dialyzed yesterday. Await outpatient HD chair. 2. FEN: Hyperkalemia, improved. Metabolic acidosis, improved. Monitor lytes. 3. Anemia: Epogen with HD. 4. Vascular access: Followed by Vascular. 5. Compliance is better. Subjective Date of service: 02/10/19 Principal diagnosis: ESRD Interval history: Patient was seen and examined at the bedside. Doing ok. Objective - Vital Signs Vital signs: Vital Signs - 12hr 02/10/19 02/10/19 05:30 09:23 Temperature 98.5 F Pulse Rate 104 H 102 H Respiratory 18 Rate Blood Pressure 134/80 O2 Sat by Pulse 91 Oximetry - General Appearance General appearance: well-developed, well-nourished, appears stated age, obese, other (not in distress, R IJ tunnel catheter) EENT: ATNC, PERRL, mucous membranes moist, hearing intact, vision intact Neck: supple Respiratory: Present: Clear to Ascultation Cardiology: regular, S1S2, no murmurs Gastrointestinal: normoactive bowel sounds, no tenderness, no distended Integumentary: no rash, warm and dry Neurologic: no focal deficit, no asterixis, alert and oriented x3 Musculoskeletal: other (no edema) Psychiatric: cooperative - Lab 02/06/19 13:45 02/07/19 19:43 Most recent lab results Calcium 9.6 mg/dL (8.4-10.2) 02/07/19 19:43 Medications & Allergies - Medications Allergies/Adverse Reactions: Allergies No Known Allergies Allergy (Verified 02/06/19 10:59) Home Medications: Home Medications Medication Instructions Recorded Confirmed Last Taken Type Percocet 5/325 mg 1 tab PO Q4H PRN 02/07/19 02/07/19 02/03/19 History Active Medications: Generic Name Dose Route Start Last Admin Trade Name Freq PRN Reason Stop Dose Admin Acetaminophen 650 mg 02/06/19 17:19 Tylenol PO Q4H PRN Pain MILD(1-3)/Fever >100.5/BROWN Epoetin Conor 20,000 unit 02/07/19 10:14 02/09/19 11:08 Procrit SUB-Q 20,000 unit GOPI PRN Administration hemodialysis Heparin Sodium (Porcine) 5,000 unit 02/06/19 22:00 02/10/19 09:22 Heparin SUB-Q Not Given Q12HR PRINCESS Sodium Chloride 100 mls @ 999 mls/hr 02/09/19 09:00 Nacl 0.9% IV GOPI PRN Hypotension Metoprolol Tartrate 25 mg 02/06/19 16:00 02/10/19 09:23 Lopressor PO 25 mg BID PRINCESS Administration Morphine Sulfate 2 mg 02/06/19 17:19 Morphine IV Q4H PRN Pain, Moderate (4-6) Ondansetron HCl 4 mg 02/06/19 17:19 02/10/19 11:48 Zofran IV 4 mg Q8H PRN Administration Nausea And Vomiting Oxycodone/Acetaminophen 1 tab 02/06/19 17:19 02/10/19 11:47 Percocet 5/325 PO 1 tab Q6H PRN Administration Pain, Moderate (4-6) Polyethylene Glycol 17 gm 02/07/19 18:00 02/10/19 09:23 Miralax 3350 PO Not Given QDAY PRINCESS Senna/Docusate Sodium 2 tab 02/07/19 17:11 Senokot S PO Q12H PRN Constipation Sodium Chloride 10 ml 02/06/19 22:00 02/10/19 09:24 Sodium Chloride Flush Syringe 10 Ml IV Not Given BID PRINCESS Sodium Chloride 10 ml 02/06/19 17:19 02/06/19 19:48 Sodium Chloride Flush Syringe 10 Ml IV 10 ml PRN PRN Administration LINE FLUSH
[2019-02-10 12:49] VITALS: BP 111/73
--- NOTE | 2019-02-10 15:10 | Discharge Summary ---
Providers - Providers Date of Admission: 02/08/19 12:47 Date of discharge: 02/10/19 Attending physician: JOSE ORTEGA 02/06/19 15:00 Consult to Physician [CONS] Routine Comment: Consulting Provider: CHIQUIS LOPEZ Physician Instructions: Reason For Exam: dialysis Primary care physician: [employer] Hospitalization Condition: Fair Hospital course: 1. ESRD: Patient was last dialyzed yesterday. Patient has outpatient HD chair set up at [place] [facility] 2. FEN: Hyperkalemia, improved. Metabolic acidosis, improved. Monitor lytes. 3. Anemia: Epogen with HD. 4. Vascular access: Discussed with vascular surgery--- they're going to do AV graft early part of next week.. Discussed with Dr. Celeste. They will contact the patient and set up the surgery date 5. Compliance is better. Disposition: DC- TO HOME OR SELFCARE Core Measure Documentation - Palliative Care Palliative Care/ Comfort Measures: Not Applicable - Core Measures Any of the following diagnoses?: none Exam - Constitutional Vitals: Temp Pulse Resp BP Pulse Ox 98.6 F 100 H 20 111/73 96 02/10/19 11:50 02/10/19 11:50 02/10/19 11:50 02/10/19 11:50 02/10/19 11:50 General appearance: Present: no acute distress, well-nourished - EENT Eyes: Present: PERRL ENT: hearing intact, clear oral mucosa - Neck Neck: Present: supple, normal ROM - Respiratory Respiratory effort: normal Respiratory: bilateral: CTA - Cardiovascular Heart rate: 78 Rhythm: regular Heart Sounds: Present: S1 & S2. Absent: rub, click - Extremities Extremities: no ischemia, pulses intact, pulses symmetrical, No edema Peripheral Pulses: within normal limits - Abdominal General gastrointestinal: Present: soft, non-tender, non-distended, normal bowel sounds Female genitourinary: Present: normal - Rectal Rectal Exam: deferred - Integumentary Integumentary: Present: clear, warm, dry - Musculoskeletal Musculoskeletal: gait normal, strength equal bilaterally - Psychiatric Psychiatric: appropriate mood/affect, intact judgment & insight - Neurologic Neurologic: CNII-XII intact, moves all extremities - Allied Health Allied health notes reviewed: nursing, case management Plan Activity: no restrictions Diet: renal Follow up with: PRIMARY CAREMD [Primary Care Provider] - 3-5 Days
== END 2019-02-10 16:43 | disposition home health service (06) | DRG 640 ==
LOC: ED 10:58 → 3A 15:03 → OBSVTOIN 02-08 12:47
PROVIDERS: ADMIT Internal Medicine; ATTEND Internal Medicine
PROC: 5A1D70Z Performance of Urinary Filtration, Intermittent, Less than 6 Hours Per Day (ICD-10-PCS; principal; 2019-02-07)
PROC: 5A1D70Z Performance of Urinary Filtration, Intermittent, Less than 6 Hours Per Day (ICD-10-PCS; 2019-02-09)
DX: E87.5 Hyperkalemia (principal); N18.6 End stage renal disease; I12.0 Hypertensive chronic kidney disease with stage 5 chronic kidney disease or end stage renal disease; E87.2 Acidosis; E87.70 Fluid overload, unspecified; D64.9 Anemia, unspecified; F17.200 Nicotine dependence, unspecified, uncomplicated; Z90.49 Acquired absence of other specified parts of digestive tract; Z79.899 Other long term (current) drug therapy; Z91.15 Patient's noncompliance with renal dialysis
CPT/HCPCS: 36415; 71045; 80048; 80053; 80074; 80076; 85025; 85610; 85730; 87116; 93005; 93010; 93970; 96374; 99285; G0378; J0610; J0885; J1644; J2405; J7030

== ENCOUNTER 2019-02-13 12:25 | Inpatient (IN) | payer MEDICARE ==
--- NOTE | 2019-02-13 12:38 | Emergency Department Report ---
Blank Doc - Documentation Documentation: This is a 43-year-old female that presents to the ED for mixed dialysis. Stated missed last and is 2 times a week. This initial assessment/diagnostic orders/clinical plan/treatment(s) is/are subject to change based on patient's health status, clinical progression and re- assessment by fellow clinical providers in the ED. Further treatment and workup at subsequent clinical providers discretion. Patient/guardians urged not to elope from the ED as their condition may be serious if not clinically assessed and managed. Initial orders include: 1- Patient sent to MAIN ED for further evaluation and treatment 2- labs
[2019-02-13 13:05] LABS: Basophils % (Auto) 0.6 % (0.0-1.8); Eosinophils # (Auto) 0.4 K/mm3 (0.0-0.4); Eosinophils % (Auto) 4.7 % (0.0-4.3); Hematocrit 28.1 % (30.3-42.9); Hemoglobin 8.8 gm/dl (10.1-14.3); Lymphocytes # (Auto) 2.2 K/mm3 (1.2-5.4); Lymphocytes % (Auto) 26.7 % (13.4-35.0); Mean Corpuscular HGB Conc 31 % (30-34); Mean Corpuscular Volume 95 fl (79-97); Monocytes # (Auto) 0.7 K/mm3 (0.0-0.8); Monocytes % (Auto) 8.6 % (0.0-7.3); Platelet Count 494 K/mm3 (140-440); Red Blood Count 2.98 M/mm3 (3.65-5.03); Red Cell Distribution Width 17.3 % (13.2-15.2)
--- NOTE | 2019-02-13 13:18 | Emergency Department Report ---
HPI - General Chief Complaint: Medical Clearance Time Seen by Provider: 02/13/19 12:36 - HPI HPI: 43-year-old female presents to the emergency department to get dialysis. The patient follows with Dr. Calderón for nephrology and is currently unassigned but they are working on getting her placed at a dialysis clinic with a specific date and time. In the meantime, the patient has been told to come to the emergency Department for dialysis and was called today by the costume rental clerk. She denies any shortness of breath, fever, nausea, vomiting, chest pain. The patient last had dialysis when she was admitted here last week. ED Past Medical Hx - Past Medical History Previous Medical History?: Yes Hx Hypertension: Yes Hx Congestive Heart Failure: No Hx Diabetes: No Hx Renal Disease: Yes Hx Asthma: No Hx COPD: No Hx HIV: No Additional medical history: Fluid on brain - Surgical History Past Surgical History?: Yes Hx Cholecystectomy: Yes Additional Surgical History: C- Section, 3 hernia repairs, gallbladder removed - Social History Smoking Status: Current Every Day Smoker Substance Use Type: None - Medications Home Medications: Home Medications Medication Instructions Recorded Confirmed Last Taken Type Metoprolol [Lopressor TAB] 25 mg PO BID #60 tablet 02/10/19 02/13/19 Unknown Rx Ondansetron (Nf) [Zofran TAB] 8 mg PO Q8HR PRN #16 tablet 02/10/19 02/13/19 Unknown Rx Percocet 5/325 mg 1 tab PO Q4H PRN #16 02/10/19 02/13/19 Unknown Rx Pantoprazole [Protonix] 40 mg PO DAILY 02/13/19 02/13/19 Unknown History Sevelamer Carbonate [Renvela] 1,600 mg PO TID 02/13/19 02/13/19 Unknown History amLODIPine [Norvasc] 10 mg PO DAILY 02/13/19 02/13/19 Unknown History ED Review of Systems ROS: Stated complaint: DIALYSIS Other details as noted in HPI Comment: All other systems reviewed and negative Constitutional: denies: chills, fever Eyes: denies: eye pain, vision change ENT: denies: ear pain, throat pain Respiratory: denies: cough, shortness of breath Cardiovascular: denies: chest pain, palpitations Gastrointestinal: denies: nausea, vomiting Genitourinary: denies: dysuria, discharge Musculoskeletal: myalgia. denies: arthralgia Skin: denies: rash, lesions Neurological: denies: headache, numbness Physical Exam - Physical Exam Vital Signs: Vital Signs 02/13/19 12:36 Temperature 98 F Pulse Rate 118 H Respiratory 18 Rate Blood Pressure 145/80 O2 Sat by Pulse 97 Oximetry Physical Exam: GENERAL: The patient is well-developed well-nourished. HENT: Normocephalic. Atraumatic. Patient has moist mucous membranes. EYES: Extraocular motions are intact. NECK: Supple. Trachea is midline. CHEST/LUNGS: Clear to auscultation. There is no respiratory distress noted. There is a right-sided chest port in place. HEART/CARDIOVASCULAR: Regular. There is mild tachycardia. There is no murmur. ABDOMEN: Abdomen is soft, nontender. Patient has normal bowel sounds. SKIN: Skin is warm and dry. NEURO: The patient is awake, alert, and oriented. The patient is cooperative. The patient has no focal neurologic deficits. The patient has normal speech. MUSCULOSKELETAL: There is no tenderness or deformity. There is no evidence of acute injury. ED Course Vital Signs 02/13/19 12:36 Temperature 98 F Pulse Rate 118 H Respiratory 18 Rate Blood Pressure 145/80 O2 Sat by Pulse 97 Oximetry - Consultations Consultation #1: I spoke to the patient's costume rental clerk, Dr Calderón, who says he will arrange for the patient get dialysis today. He does not require any medication or treatment for her mild hyperkalemia. ED Medical Decision Making - Lab Data Result diagrams: 02/13/19 12:43 02/13/19 12:43 - Medical Decision Making This patient presents to the emergency department to receive dialysis as she is currently unassigned to any dialysis clinic. While they are working on it, the patient's costume rental clerk sent her in to get this done. She denies any current shortness of breath, chest pain, edema. Vital signs are stable. The patient was accepted for admission by the hospitalist, Dr. Silvestre. Critical Care Time: No Critical care attestation.: If time is entered above; I have spent that time in minutes in the direct care of this critically ill patient, excluding procedure time. ED Disposition Clinical Impression: End-stage renal disease needing dialysis, Hyperkalemia Disposition: DC-09 OP ADMIT IP TO THIS HOSP Is pt being admited?: Yes Condition: Stable Time of Disposition: 14:00
[2019-02-13 13:40] LABS: Alanine Aminotransferase 9 units/L (7-56); Albumin 3.5 g/dL (3.9-5); BUN/Creatinine Ratio 5; Blood Urea Nitrogen 50 mg/dL (7-17); Calcium 10.1 mg/dL (8.4-10.2); Hemolysis Index 7
[2019-02-13] MEDS ORDERED: TYLENOL PO PRN (14:27)
[2019-02-13] MEDS ORDERED: ZOFRAN IV PRN (14:27)
[2019-02-13] MEDS ORDERED: PROVENTIL IH PRN (14:27)
[2019-02-13] MEDS ORDERED: SODIUM CHLORIDE FLUSH SYRINGE 10 ML IV PRN (14:27)
--- NOTE | 2019-02-13 14:27 | History and Physical Report ---
History of Present Illness Chief complaint: I need dialysis History of present illness: 43 YO Female with HTN, ESRD on HD (Wednesday,), Nicotine Dependence, RICHIE, Obesity Hypoventilation presents to ED for evaluation. Pt states that she was last dialyzed on Wednesday. Pt transported to [facility] via private vehicle. PT seen and evaluated in ED and found to have ESRD, Acidosis. Nephrology consulted in ED for urgent dialysis. Pt initiated on supplemental oxygen, and NIPPV qhs. Pt denies fever, chills, CP, Palpitations, NVD, shortness of breath, productive cough, BRBPR, Unintentional weight loss, night sweats. Prior admission on 02/08/19 reviewed. All listed medication reconciled at time of admission. Past History Past Medical History: ESRD, hypertension, other (RICHIE, Obesity Hypoventilation) Past Surgical History: cholecystectomy, , hernia repair Social history: single, smoking. denies: alcohol abuse, prescription drug abuse, IV drug use Family history: denies: hypertension Medications and Allergies Allergies Allergy/AdvReac Type Severity Reaction Status Date / Time No Known Allergies Allergy Verified 02/06/19 10:59 Home Medications Medication Instructions Recorded Confirmed Last Taken Type Metoprolol [Lopressor TAB] 25 mg PO BID #60 tablet 02/10/19 Unknown Rx Ondansetron (Nf) [Zofran TAB] 8 mg PO Q8HR PRN #16 tablet 02/10/19 Unknown Rx Percocet 5/325 mg 1 tab PO Q4H PRN #16 02/10/19 Unknown Rx Review of Systems Constitutional: no weight loss, no weight gain, no fever, no sweats Ears, nose, mouth and throat: no ear pain, no ear discharge, no decreased hearing, no nose pain, no nasal congestion Breasts: no change in shape, no swelling, no mass Cardiovascular: no chest pain, no orthopnea, no palpitations, no rapid/irregular heart beat, no edema Respiratory: no cough, no cough with sputum, no excessive sputum, no hemoptysis, no shortness of breath Gastrointestinal: no nausea, no vomiting, no diarrhea, no constipation, no change in bowel habits Genitourinary Female: no dysmenorrhea, no pelvic pain, no flank pain, no menorrhagia, no dysuria, no urinary frequency, no urgency Rectal: no pain, no incontinence, no bleeding Musculoskeletal: no neck stiffness, no neck pain, no shooting arm pain, no arm numbness/tingling, no low back pain, no shooting leg pain, no leg numbness/tingling Integumentary: no rash, no pruritis, no redness, no sores, no wounds, no jaundice Neurological: no paralysis, no weakness, no parathesias, no tingling, no seizures Psychiatric: no anxiety, no memory loss, no change in sleep habits, no sleep disturbances, no insomnia, no hypersomnia, no change in appetite Endocrine: no cold intolerance, no polyphagia, no excessive thirst, no polydipsia, no polyuria, no excessive sweating, no flushing Hematologic/Lymphatic: no easy bruising, no easy bleeding, no lymphadenopathy, no lymphedema Allergic/Immunologic: no urticaria, no allergic rhinitis, no wheezing, no persistent infections, no anaphylaxis, no angioedema Exam - Constitutional Vitals: Temp Pulse Resp BP Pulse Ox 98.6 F 116 H 18 118/77 97 02/13/19 13:22 02/13/19 13:22 02/13/19 13:22 02/13/19 13:22 02/13/19 13:22 General appearance: Present: mild distress - EENT Eyes: Present: PERRL ENT: hearing intact, clear oral mucosa - Neck Neck: Present: supple, normal ROM - Respiratory Respiratory effort: normal Respiratory: bilateral: CTA - Cardiovascular Heart Sounds: Present: S1 & S2. Absent: rub, click - Extremities Extremities: pulses symmetrical, No edema Peripheral Pulses: within normal limits - Abdominal General gastrointestinal: Present: soft, non-tender, non-distended, normal bowel sounds Female genitourinary: Present: normal - Integumentary Integumentary: Present: clear, warm, dry - Musculoskeletal Musculoskeletal: gait normal, strength equal bilaterally - Psychiatric Psychiatric: appropriate mood/affect, intact judgment & insight, agitated - Neurologic Neurologic: CNII-XII intact, moves all extremities Results - Labs CBC & Chem 7: 02/13/19 12:43 02/13/19 12:43 Labs: Abnormal lab results 02/13/19 02/13/19 Range/Units 12:43 12:43 RBC 2.98 L (3.65-5.03) M/mm3 Hgb 8.8 L (10.1-14.3) gm/dl Hct 28.1 L (30.3-42.9) % RDW 17.3 H (13.2-15.2) % Plt Count 494 H (140-440) K/mm3 Stone % (Auto) 8.6 H (0.0-7.3) % Eos % (Auto) 4.7 H (0.0-4.3) % Potassium 5.7 H (3.6-5.0) mmol/L Chloride 94.8 L (98-107) mmol/L Carbon Dioxide 19 L (22-30) mmol/L BUN 50 H (7-17) mg/dL Creatinine 10.5 H (0.7-1.2) mg/dL Glucose 109 H (65-100) mg/dL Alkaline Phosphatase 182 H (35-129) units/L Albumin 3.5 L (3.9-5) g/dL Assessment and Plan - Patient Problems (1) End-stage renal disease needing dialysis Current Visit: No Status: Acute Plan to address problem: CMP, Nephrology consulted for urgent dialysis, strict I/O, monitor uop q shift, avoid nephrotoxic agents (2) Acidosis Current Visit: Yes Status: Acute Plan to address problem: urgent dialysis, IV bicarbonate therapy, repeat bmp, (3) Volume overload Current Visit: No Status: Acute Qualifiers: Hypervolemia type: other Qualified Code(s): E87.79 - Other fluid overload Plan to address problem: urgent dialysis, struct I/O, monitor uop q shift (4) DVT prophylaxis Current Visit: No Status: Acute Plan to address problem: SCD to BLE while in bed, prophylactic heparin
[2019-02-13] MEDS ORDERED: NON-FORMULARY (Ondansetron (Nf) 8 MG) PO PRN (14:29)
--- NOTE | 2019-02-13 15:12 | Consultation ---
History of Present Illness - Reason for Consult Consult date: 02/13/19 end stage renal disease, hyperkalemia, metabolic acidosis - History of Present Illness The patient is a 43 YO female who is known to our servicewith history significant for Obesity, HLD, Anemia and ESRD on hemodialysis who presented to [facility] ED for need of hemodialysis. Patient is currently in the process of establishing with [place] [facility] dialysis unit. She was last dialyzed on 02/09/2019 at this facility. Patient denies any N, V, D, abd pain, cp, cough, sob, dizziness, syncope, leg swelling, fever, chills, rash, dysuria or hematuria. Labs significant for K 5.7 and Hb 8.8 Nephrology was consulted for further evaluation and treatment. Past History Past Medical History: dialysis, ESRD Medications and Allergies Allergies Allergy/AdvReac Type Severity Reaction Status Date / Time No Known Allergies Allergy Verified 02/06/19 10:59 Home Medications Medication Instructions Recorded Confirmed Last Taken Type Metoprolol [Lopressor TAB] 25 mg PO BID #60 tablet 02/10/19 02/13/19 Unknown Rx Ondansetron (Nf) [Zofran TAB] 8 mg PO Q8HR PRN #16 tablet 02/10/19 02/13/19 Unknown Rx Pantoprazole [Protonix TAB] 40 mg PO DAILY 02/13/19 02/13/19 Unknown History Sevelamer Carbonate [Renvela] 1,600 mg PO TID 02/13/19 02/13/19 Unknown History amLODIPine [Norvasc] 10 mg PO DAILY 02/13/19 02/13/19 Unknown History Percocet 5/325 mg 1 tab PO Q4H PRN #16 02/14/19 Unknown Rx Active Meds: Active Medications Acetaminophen (Tylenol) 650 mg PO Q4H PRN PRN Reason: Pain MILD(1-3)/Fever >100.5/BROWN Albuterol (Proventil) 2.5 mg IH Q4HRT PRN PRN Reason: Shortness Of Breath Metoprolol Tartrate (Lopressor) 25 mg PO BID PRINCESS Ondansetron HCl (Zofran) 4 mg IV Q8H PRN PRN Reason: Nausea And Vomiting Sodium Chloride (Sodium Chloride Flush Syringe 10 Ml) 10 ml IV BID PRINCESS Sodium Chloride (Sodium Chloride Flush Syringe 10 Ml) 10 ml IV PRN PRN PRN Reason: LINE FLUSH Review of Systems Constitutional: no weight loss, no weight gain, no fever, no anorexia, no poor appetite Breasts: deferred Cardiovascular: shortness of breath, dyspnea on exertion, decreased exercise tolerance, no chest pain, no orthopnea, no lightheadedness, no paroxysmal nocturnal dyspnea, no high blood pressure, no leg edema Respiratory: shortness of breath, dyspnea on exertion, no cough, no hemoptysis, no home oxygen Gastrointestinal: no abdominal pain, no nausea, no vomiting, no diarrhea, no melena Genitourinary Female: no dysuria, no hematuria Rectal: no bleeding Integumentary: no rash, no wounds Neurological: no paralysis, no weakness, no parathesias, no seizures, no syncope, no convulsions, no aphasia, no change in mentation, no confusion, no memory loss Exam - Vital Signs Vital signs: Vital Signs Temp Pulse Resp BP Pulse Ox 98 F 118 H 18 145/80 97 02/13/19 12:36 02/13/19 12:36 02/13/19 12:36 02/13/19 12:36 02/13/19 12:36 - General Appearance General appearance: well-developed, well-nourished, appears stated age, obese, other (no distress, R IJ tunnel catheter) EENT: ATNC, PERRL, mucous membranes moist, hearing intact, vision intact Neck: Present: neck supple, trachea midline Respiratory: Clear to Ascultation Heart: regular, S1S2, no murmurs Gastrointestinal: Present: normoactive bowel sounds. Absent: tenderness, distended Integumentary: no rash, warm and dry Neurologic: no focal deficit, no asterixis, alert and oriented x3 Musculoskeletal: Present: other (no edema) Psychiatric: cooperative Results - Lab Results 02/13/19 12:43 02/14/19 05:01 Most recent lab results Calcium 10.1 mg/dL (8.4-10.2) 02/13/19 12:43 Assessment and Plan 1. ESRD: Patient was last dialyzed 4 days ago. HD today, orders placed. Await outpatient HD chair confirmation. 2. FEN: Hyperkalemia, HD today. Metabolic acidosis, HD today. Monitor lytes. 3. Anemia: Epogen with HD. 4. Vascular access: Followed by Vascular. 5. Compliance is better.
[2019-02-13] MEDS ORDERED: NACL 0.9% 100 ML IV PRN (15:13)
[2019-02-13] MEDS ORDERED: PROCRIT SUB-Q PRN (15:13)
[2019-02-13] MEDS ORDERED: HEPARIN 10,000 UNITS/10 ML IV PRN ×2 (15:13)
[2019-02-13] MEDS ORDERED: ALBURX 25% (ALBUMIN) IV PRN (15:13)
[2019-02-13] MEDS ORDERED: NACL 0.9 (PRIMING MACHINE ONLY DIALYSIS) MC ONE (19:32)
[2019-02-13] MEDS: LOPRESSOR PO SCH (21:46)
[2019-02-13] MEDS ORDERED: IBUPROFEN PO ONE (22:15)
[2019-02-13] MEDS: HEPARIN SUB-Q SCH (22:21)
[2019-02-14] MEDS: SODIUM CHLORIDE FLUSH SYRINGE 10 ML IV SCH ×2 (00:04→10:31)
[2019-02-14 05:40] LABS: Albumin 3.1 g/dL (3.9-5)
--- NOTE | 2019-02-14 09:21 | Progress Note ---
Assessment and Plan 1. ESRD: Patient was last dialyzed yesterday. Outpatient HD chair confirmed at [facility], MWF schedule. 2. FEN: Hyperkalemia, improved. Metabolic acidosis, improved. Monitor lytes. 3. Anemia: Epogen with HD. 4. Vascular access: Followed by Vascular. Subjective Date of service: 02/14/19 Interval history: Patient was seen and examined at the bedside. Objective - Vital Signs Vital signs: Vital Signs - 12hr 02/13/19 02/13/19 02/13/19 21:46 22:00 22:55 Temperature Pulse Rate 104 H Respiratory 17 Rate Respiratory 18 Rate [Back] Blood Pressure 132/75 O2 Sat by Pulse Oximetry 02/14/19 02/14/19 04:36 07:54 Temperature 98.4 F Pulse Rate 96 H Respiratory 16 Rate Respiratory Rate [Back] Blood Pressure 123/76 O2 Sat by Pulse 100 98 Oximetry - General Appearance General appearance: well-developed, well-nourished, appears stated age, obese, other (not in distress, R IJ tunnel catheter) EENT: ATNC, PERRL, mucous membranes moist, hearing intact, vision intact Neck: supple Respiratory: Present: Clear to Ascultation Cardiology: regular, S1S2, no murmurs Gastrointestinal: normoactive bowel sounds, no tenderness, no distended Integumentary: no rash, warm and dry Neurologic: no focal deficit, no asterixis, alert and oriented x3 Musculoskeletal: other (no edema) Psychiatric: cooperative - Lab 02/13/19 12:43 02/14/19 05:01 Most recent lab results Calcium 10.0 mg/dL (8.4-10.2) 02/14/19 05:01 Medications & Allergies - Medications Allergies/Adverse Reactions: Allergies No Known Allergies Allergy (Verified 02/06/19 10:59) Home Medications: Home Medications Medication Instructions Recorded Confirmed Last Taken Type Metoprolol [Lopressor TAB] 25 mg PO BID #60 tablet 02/10/19 02/13/19 Unknown Rx Ondansetron (Nf) [Zofran TAB] 8 mg PO Q8HR PRN #16 tablet 02/10/19 02/13/19 Unknown Rx Pantoprazole [Protonix TAB] 40 mg PO DAILY 02/13/19 02/13/19 Unknown History Sevelamer Carbonate [Renvela] 1,600 mg PO TID 02/13/19 02/13/19 Unknown History amLODIPine [Norvasc] 10 mg PO DAILY 02/13/19 02/13/19 Unknown History Percocet 5/325 mg 1 tab PO Q4H PRN #16 02/14/19 Unknown Rx Active Medications: Generic Name Dose Route Start Last Admin Trade Name Freq PRN Reason Stop Dose Admin Acetaminophen 650 mg 02/13/19 14:27 Tylenol PO Q4H PRN Pain MILD(1-3)/Fever >100.5/BROWN Albumin Human 12.5 gm 02/13/19 15:13 Alburx 25% (Albumin) IV GOPI PRN Hypotension Albuterol 2.5 mg 02/13/19 14:27 Proventil IH Q4HRT PRN Shortness Of Breath Epoetin Conor 20,000 unit 02/13/19 15:13 02/13/19 21:14 Procrit SUB-Q 20,000 unit GOPI PRN Administration hemodialysis Heparin Sodium (Porcine) 2,000 unit 02/13/19 15:13 Heparin 10,000 Units/10 Ml IV GOPI PRN hemodialysis Heparin Sodium (Porcine) 1,000 unit 02/13/19 15:13 Heparin 10,000 Units/10 Ml IV GOPI PRN hemodialysis Heparin Sodium (Porcine) 5,000 unit 02/13/19 22:00 02/13/19 22:21 Heparin SUB-Q Not Given Q12HR PRINCESS Sodium Chloride 100 mls @ 999 mls/hr 02/13/19 15:13 Nacl 0.9% IV GOPI PRN Hypotension Metoprolol Tartrate 25 mg 02/13/19 22:00 02/13/19 21:46 Lopressor PO 25 mg BID PRINCESS Administration Ondansetron HCl 4 mg 02/13/19 14:27 Zofran IV Q8H PRN Nausea And Vomiting Sodium Chloride 10 ml 02/13/19 22:00 02/14/19 00:04 Sodium Chloride Flush Syringe 10 Ml IV Not Given BID PRINCESS Sodium Chloride 10 ml 02/13/19 14:27 Sodium Chloride Flush Syringe 10 Ml IV PRN PRN LINE FLUSH
[2019-02-14] MEDS: LOPRESSOR PO SCH (10:30)
[2019-02-14] MEDS: HEPARIN SUB-Q SCH (10:31)
[2019-02-14 10:32] VITALS: BP 113/76
--- NOTE | 2019-02-14 10:35 | Discharge Summary ---
Providers - Providers Date of Admission: 02/13/19 14:27 Date of discharge: 02/14/19 Attending physician: TAYO INMAN 02/13/19 14:00 Consult to Physician [CONS] Routine Comment: Consulting Provider: CHIQUIS LOPEZ Physician Instructions: Reason For Exam: dialysis 02/13/19 17:18 Consult to Interventional Radiology [CONS] Routine Consulting Provider: DEB PAPPAS Reason For Exam: Fistula placement. Place consult to:: dr pappas Notified:: office Phone number called:: [phone] Was contact made?: Yes If yes, spoke with:: homer Time called:: 08:56 [facility] Hospital[facility] Condition: Stable Hospital course: Patient is a 43 yo woman with a history of HTN, ESRD on HD (Wednesday,), Nicotine Dependence, RICHIE and Obesity who presented to [facility] ED with c/o needing hemodialysis. She underwent HD, also counseling done. Discharge Diagnoses: ESRD needing HD HyperKalemia Metabolic Acidosis Tobacco dependency, counseling done Obesity, BMI 41.0 Chronic pain syndrome, asking for the percocet script Hypertension renal disease Mild malnutrition, poa Anemia of chronic disease/renal disease Disposition: DC-01 TO HOME OR SELFCARE Time spent for discharge: 32 minutes Core Measure Documentation - Palliative Care Palliative Care/ Comfort Measures: Not Applicable - Core Measures Any of the following diagnoses?: none - VTE Discharge Requirements Deep Vein Thrombosis/Pulmonary Embolism Present on Admission: No Has pt received <5 days of overlap therapy or INR<2.0: No Anticoagulant overlap therapy prescribed at discharge: No Contraindication No Overlap Therapy order at DC: Not Indicated Exam - Physical Exam Narrative exam: Gen: WDWN, NAD, Awake, Alert, Orientated x 3, bmi 41 HEENT: NCAT, EOMI, PERRL, OP Clear Neck: supple, no adenopathy, no thyromegaly, no JVD CVS/Heart: RRR, normal S1S2, pulses present bilaterally Chest/Lungs: CTA B, Symmetrical chest exddfpansion, good air entry bilaterally GI/Abdomen: soft, NTND, good bowel sounds, no guarding or rebound /Bladder: no suprapubic tenderness, no CVA or paraspinal tenderness Extermity/Skin: no c/c/e, no obvious rash MSK: FROM x 4 Neuro: CN 2-12 grossly intact, no new focal deficits Psych: calm - Constitutional Vitals: Temp Pulse Resp BP Pulse Ox 98.4 F 96 H 16 123/76 98 02/14/19 04:36 02/14/19 04:36 02/14/19 04:36 02/14/19 04:36 02/14/19 07:54 Plan Activity: other (no strenous activity unless cleared by Primary doctor) Diet: renal Special Instructions: smoking cessation Follow up with: ELZBIETA AGUILLON MD [Primary Care Provider] - 7 Days Prescriptions: Percocet 5/325 mg 1 tab PO Q4H PRN #16 PRN Reason: Pain , Severe (7-10)
--- NOTE | 2019-02-14 12:13 | Consultation ---
History of Present Illness - Reason for Consult Consult date: 02/14/19 ESRD - History of Present Illness Patient with a history of end-stage renal disease on hemodialysis through a tunneled hemodialysis catheter. The patient has been intermittently compliant with dialysis as an outpatient and presented to the emergency department having missed dialysis. She is scheduled for surgical placement of fistula on Wednesday. Past History Past Medical History: ESRD, hypertension, other (RICHIE, Obesity Hypoventilation) Past Surgical History: cholecystectomy, , hernia repair Social history: single, smoking. denies: alcohol abuse, prescription drug abuse, IV drug use Family history: denies: hypertension Medications and Allergies Allergies Allergy/AdvReac Type Severity Reaction Status Date / Time No Known Allergies Allergy Verified 02/06/19 10:59 Home Medications Medication Instructions Recorded Confirmed Last Taken Type Metoprolol [Lopressor TAB] 25 mg PO BID #60 tablet 02/10/19 02/13/19 Unknown Rx Ondansetron (Nf) [Zofran TAB] 8 mg PO Q8HR PRN #16 tablet 02/10/19 02/13/19 Unkn own Rx Pantoprazole [Protonix TAB] 40 mg PO DAILY 02/13/19 02/13/19 Unknown History Sevelamer Carbonate [Renvela] 1,600 mg PO TID 02/13/19 02/13/19 Unknown History amLODIPine [Norvasc] 10 mg PO DAILY 02/13/19 02/13/19 Unknown History Percocet 5/325 mg 1 tab PO Q4H PRN #16 02/14/19 Unknown Rx Active Meds: Active Medications Acetaminophen (Tylenol) 650 mg PO Q4H PRN PRN Reason: Pain MILD(1-3)/Fever >100.5/BROWN Albumin Human (Alburx 25% (Albumin)) 12.5 gm IV GOPI PRN PRN Reason: Hypotension Albuterol (Proventil) 2.5 mg IH Q4HRT PRN PRN Reason: Shortness Of Breath Epoetin Conor (Procrit) 20,000 unit SUB-Q GOPI PRN PRN Reason: hemodialysis Last Admin: 02/13/19 21:14 Dose: 20,000 unit Documented by: Heparin Sodium (Porcine) (Heparin 10,000 Units/10 Ml) 2,000 unit IV GOPI PRN PRN Reason: hemodialysis Heparin Sodium (Porcine) (Heparin 10,000 Units/10 Ml) 1,000 unit IV GOPI PRN PRN Reason: hemodialysis Heparin Sodium (Porcine) (Heparin) 5,000 unit SUB-Q Q12HR [facility] Last Admin: 02/14/19 10:31 Dose: Not Given Documented by: Sodium Chloride (Nacl 0.9%) 100 mls @ 999 mls/hr IV GOPI PRN PRN Reason: Hypotension Metoprolol Tartrate (Lopressor) 25 mg PO BID [facility] Last Admin: 02/14/19 10:30 Dose: 25 mg Documented by: Ondansetron HCl (Zofran) 4 mg IV Q8H PRN PRN Reason: Nausea And Vomiting Sodium Chloride (Sodium Chloride Flush Syringe 10 Ml) 10 ml IV BID [facility] Last Admin: 02/14/19 10:31 Dose: 10 ml Documented by: Sodium Chloride (Sodium Chloride Flush Syringe 10 Ml) 10 ml IV PRN PRN PRN Reason: LINE FLUSH Review of Systems All systems: negative Exam - Constitutional Vitals: Temp Pulse Resp BP Pulse Ox 98.4 F 98 H 16 113/76 98 02/14/19 04:36 02/14/19 10:30 02/14/19 04:36 02/14/19 10:30 02/14/19 07:54 General appearance: Present: no acute distress - EENT Eyes: Present: PERRL, EOM intact ENT: hearing intact - Neck Neck: Present: supple, normal ROM - Respiratory Respiratory effort: normal - Extremities Extremities: no ischemia - Rectal Rectal Exam: deferred - Psychiatric Psychiatric: appropriate mood/affect, cooperative Results - Labs CBC & Chem 7: 02/13/19 12:43 02/14/19 05:01 Labs: Abnormal lab results 02/13/19 02/13/19 02/14/19 Range/Units 12:43 12:43 05:01 RBC 2.98 L (3.65-5.03) M/mm3 Hgb 8.8 L (10.1-14.3) gm/dl Hct 28.1 L (30.3-42.9) % RDW 17.3 H (13.2-15.2) % Plt Count 494 H (140-440) K/mm3 [place] % (Auto) 8.6 H (0.0-7.3) % Eos % (Auto) 4.7 H (0.0-4.3) % Potassium 5.7 H (3.6-5.0) mmol/L Chloride 94.8 L 97.6 L (98-107) mmol/L Carbon Dioxide 19 L (22-30) mmol/L BUN 50 H 26 H (7-17) mg/dL Creatinine 10.5 H 6.2 H (0.7-1.2) mg/dL Glucose 109 H 128 H (65-100) mg/dL Alkaline Phosphatase 182 H 149 H (35-129) units/L Albumin 3.5 L 3.1 L (3.9-5) g/dL Assessment and Plan I discussed patient with OR scheduling. OR is booked for the next 2 days. Patient is on the schedule for fistula creation on Wednesday. Would plan on doing the patient during this hospital admission however, likely earliest time she could be done is her scheduled surgical time on Wednesday. Okay to discharge from a vascular standpoint
== END 2019-02-14 13:00 | disposition home health service (06) | DRG 640 ==
LOC: ED 12:25 → 3A 14:27
PROVIDERS: ADMIT Internal Medicine; ATTEND Internal Medicine
PROC: 5A1D70Z Performance of Urinary Filtration, Intermittent, Less than 6 Hours Per Day (ICD-10-PCS; principal; 2019-02-13)
DX: E87.5 Hyperkalemia (principal); N18.6 End stage renal disease; I12.0 Hypertensive chronic kidney disease with stage 5 chronic kidney disease or end stage renal disease; E66.2 Morbid (severe) obesity with alveolar hypoventilation; Z68.41 Body mass index [BMI] 40.0-44.9, adult; E44.1 Mild protein-calorie malnutrition; E87.2 Acidosis; E87.70 Fluid overload, unspecified; F17.210 Nicotine dependence, cigarettes, uncomplicated; E78.5 Hyperlipidemia, unspecified; G89.4 Chronic pain syndrome; D63.8 Anemia in other chronic diseases classified elsewhere; Z99.2 Dependence on renal dialysis; Z90.49 Acquired absence of other specified parts of digestive tract
CPT/HCPCS: 36415; 80053; 85025; G0378; J0885; J1644; J7030

== ENCOUNTER 2019-02-20 09:08 | Day surgery (SDC) | payer MEDICARE ==
[~2019-02-20 09:08] MED LIST: ANCEF/NS 1 GM/50 ML 1 GM/50 ML BAG IV NR
--- NOTE | 2019-02-20 09:44 | Anesthesia Consultation ---
Anesthesia Consult and Med Hx Date of service: 02/20/19 - Airway Anesthetic Teeth Evaluation: Poor (Missing up teeth) ROM Head & Neck: Adequate Mallampati Class: Class II Intubation Access Assessment: Good - Pulmonary Exam CTA: Yes - Cardiac Exam Cardiac Exam: RRR - Pre-Operative Health Status ASA Pre-Surgery Classification: ASA3 Proposed Anesthetic Plan: General (43 year old female hx HTN, ESRD , Irreg HR for GA, Patient is also smoker 4 cigs a day ) - Pulmonary Hx Smoking: Yes Hx Asthma: No SOB: Yes COPD: No Hx Pneumonia: No Hx Sleep Apnea: Yes (No CPAP) - Cardiovascular System Hx Hypertension: Yes - Central Nervous System CVA: No Hx Psychiatric Problems: No - Endocrine Hx Renal Disease: Yes Hx End Stage Renal Disease: Yes Hx Hyperthyroidism: Yes - Hematic Hx Anemia: Yes - Other Systems Hx Alcohol Use: No Hx Substance Use: No Hx Cancer: No
--- NOTE | 2019-02-20 09:44 | Anesthesia Day of Surgery ---
Anesthesia Day of Surgery - Day of Surgery Patient Examined: Yes Patient H&P Reviewed: Yes Patient is NPO: Yes
[2019-02-20] MEDS ORDERED: NACL 0.9% 1000 ML 1,000 ML IV SCH (10:00)
[2019-02-20] MEDS ORDERED: TRANSDERM-SCOP TD NR (10:00)
[2019-02-20] MEDS ORDERED: PROVENTIL IH NR (10:00)
[2019-02-20] MEDS ORDERED: PROVENTIL IH ONE (10:01)
[2019-02-20 10:23] LABS: Basophils % (Auto) 0.4 % (0.0-1.8); Eosinophils # (Auto) 0.2 K/mm3 (0.0-0.4); Eosinophils % (Auto) 2.3 % (0.0-4.3); Hematocrit 26.8 % (30.3-42.9); Hemoglobin 8.4 gm/dl (10.1-14.3); Lymphocytes # (Auto) 1.7 K/mm3 (1.2-5.4); Lymphocytes % (Auto) 19.2 % (13.4-35.0); Mean Corpuscular HGB Conc 31 % (30-34); Mean Corpuscular Volume 96 fl (79-97); Monocytes # (Auto) 0.7 K/mm3 (0.0-0.8); Monocytes % (Auto) 7.9 % (0.0-7.3); Platelet Count 312 K/mm3 (140-440); Red Blood Count 2.78 M/mm3 (3.65-5.03); Red Cell Distribution Width 19.9 % (13.2-15.2)
[2019-02-20] MEDS ORDERED: MARCAINE 0.5% INFILTRATI ONE ×3 (10:35→11:57)
[2019-02-20] MEDS ORDERED: NACL P/F VIAL (10 ML) 10 ML ONE (10:35)
[2019-02-20] MEDS ORDERED: RIFADIN ONE (10:36)
[2019-02-20] MEDS ORDERED: HEPARIN 10,000 UNITS/10 ML ONE (10:36)
[2019-02-20] MEDS ORDERED: NACL 0.9% 250ML 0 ML ONE (10:36)
[2019-02-20] MEDS ORDERED: NACL 0.9% 500 ML 500 ML ONE (10:36)
[2019-02-20 10:41] LABS: Calcium 9.9 mg/dL (8.4-10.2)
[2019-02-20] MEDS ORDERED: DIPRIVAN 10 MG/ML IV ONE ×3 (10:44→13:02)
[2019-02-20] MEDS ORDERED: SUBLIMAZE ONE (10:44)
[2019-02-20] MEDS ORDERED: ANCEF/STERILE WATER 2 GM/20 ML IV NR (11:00)
[2019-02-20] MEDS ORDERED: NACL 0.9% IR ONE (11:57)
[2019-02-20] MEDS ORDERED: HEPARIN 10,000 UNITS/10 ML IV ONE (12:00)
[2019-02-20] MEDS ORDERED: HEPARIN 10,000 UNITS/10 ML 2,000 UNIT in NACL 0.9% 500 ML 500 ML IR ONE (12:02)
[2019-02-20] MEDS ORDERED: XYLOCAINE MPF 2% ONE (12:02)
[2019-02-20] MEDS ORDERED: DECADRON ONE (12:02)
[2019-02-20] MEDS ORDERED: NACL 0.9% 100 ML ONE (12:02)
[2019-02-20] MEDS ORDERED: BREVIBLOC IV ONE (12:02)
[2019-02-20] MEDS ORDERED: ZEMURON IV ONE (12:02)
[2019-02-20] MEDS ORDERED: NEO SYNEPHRINE ONE (12:02)
[2019-02-20] MEDS ORDERED: ROBINUL ONE (12:02)
[2019-02-20] MEDS ORDERED: ZOFRAN ONE (12:02)
[2019-02-20] MEDS ORDERED: PROAIR IH ONE (12:02)
[2019-02-20] MEDS ORDERED: SUBLIMAZE IV PRN (13:01)
--- NOTE | 2019-02-20 13:27 | Short Stay Summary ---
Short Stay Documentation Date of service: 02/20/19 Narrative H&P: see H&P - Allergies and Medications Current Medications: Allergies No Known Allergies Allergy (Verified 02/16/19 09:53) Home Medications Medication Instructions Recorded Confirmed Last Taken Type Metoprolol [Lopressor TAB] 25 mg PO BID #60 tablet 02/10/19 02/20/19 02/19/19 17:00 Rx Ondansetron (Nf) [Zofran TAB] 8 mg PO Q8HR PRN #16 tablet 02/10/19 02/16/19 Unknown Rx Pantoprazole [Protonix TAB] 40 mg PO DAILY 02/13/19 02/20/19 02/19/19 09:00 History Sevelamer Carbonate [Renvela] 1,600 mg PO TID 02/13/19 02/20/19 02/19/19 17:00 History amLODIPine [Norvasc] 10 mg PO DAILY 02/13/19 02/20/19 02/19/19 09:00 History Percocet 5/325 mg 1 tab PO Q4H PRN #16 02/14/19 02/16/19 Unknown Rx Active Medications Albuterol (Proventil) 2.5 mg IH PREOP NR Stop: 02/20/19 20:00 Last Admin: 02/20/19 10:17 Dose: 2.5 mg Documented by: Cefazolin Sodium (Ancef/Sterile Water 2 Gm/20 Ml) 2 gm IV PREOP NR Stop: 02/20/19 23:59 Fentanyl (Sublimaze) 50 mcg IV Q5MIN PRN PRN Reason: Pain , Severe (7-10) Stop: 02/20/19 23:59 Sodium Chloride (Nacl 0.9% 1000 Ml) 1,000 mls @ 42 mls/hr IV DIRECT PRINCESS Last Admin: 02/20/19:19 Dose: 42 mls/hr Documented by: Scopolamine (Transderm-Scop) 1 each TD PREOP NR Stop: 02/20/19 20:00 Last Admin: 02/20/19 10:18 Dose: 1 each Documented by: - Brief post op/procedure progress note Date of procedure: 02/20/19 Pre-op diagnosis: End-Stage Renal Disease Post-op diagnosis: same Procedure: Creation of Left Radial Artery to Cephalic Vein Arteriovenous Fistula Anesthesia: GETA Surgeon: ENMA HANSEN Estimated blood loss: 50-100ml Pathology: none Condition: stable - Disposition Condition at discharge: Good Disposition: DC-01 TO HOME OR SELFCARE Short Stay Discharge Plan Activity: other (no heavy lifting with left arm) Wound: open to air, keep clean and dry, other (okay to wash the wound with soap and water but do not soak in water) Follow up with: ENMA HANSEN MD [Staff Physician] - 14 Days Prescriptions: HYDROcodone/APAP 7.5-325 [[place] 7.5/325] 1 each PO Q6HR PRN #40 tablet PRN Reason: Pain
--- NOTE | 2019-02-20 13:28 | Operative Report ---
Operative Report Operative Report: Date of procedure: 02/20/2019 Pre-operative diagnosis: End-Stage Renal Disease Post-operative diagnosis: End-Stage Renal Disease Procedure(s): Creation of Left Mike Fistula Surgeon: Dexter Keane MD Import/Export Clerk: None Anesthesia: General Endotracheal Anesthesia EBL: Minimal Counts: Correct Complications: None Condition: Stable Findings: Successful creation of left arm AV fistula Specimen: None Indication: The patient is a 43-year-old female with a history of end-stage renal disease in need of long-term access. She was found to be a suitable candidate for creation of a left arm AV fistula. She was given the risks, benefits, and alternative procedures and consents to procedure. Description of Procedure: The patient was brought to the operating room and laid in supine position after general endotracheal anesthesia was achieved his left arm was prepped and draped in normal sterile fashion. Longitudinal incision was then created on the distal wrist centered over the cephalic vein and a second incision was created in longitudinal fashion over the radial artery. The radial artery was dissected out circumferentially and controlled with vessel loops. The cephalic vein was then dissected out circumferentially, ligating side branches and dividing them, and then a tunnel was created to transpose it over to the radial artery. A 3 Asa was then advanced through the cephalic vein proximally to ensure patency. The vein was then flushed with heparinized saline and control of the bulldog clamp. The radial artery vessel loops were put on tension occluding flow, and then an 11 blade and May scissors used to create an arteriotomy. An end-to-side anastomosis created between the cephalic vein and the radial artery using a single 6-0 Prolene in running fashion. Prior to completing the anastomosis I flushed the artery both retrograde and antegrade and advanced a 3 Asa into the proximal portion of the artery to break the spasm. I then completed the anastomosis and removed all clamps allowing flow into the fistula which had an excellent thrill. I anesthetized wound using 0.5% Marcaine plain. Then closed the wounds in 2 layers using a 3-0 Vicryl running fashion the deep dermal layer, 4-0 Monocryl in a running fashion the subcuticular layer, and Surgicel as a dressing. The patient tolerated the procedure well, all sponge, needle, and instrument counts were correct, the patient was taken to recovery in stable condition.
[2019-02-20] MEDS ORDERED: NORCO 7.5/325 PO PRN (13:54)
[2019-02-20] MEDS ORDERED: NACL 0.9% 250ML 250 ML ONE (14:00)
[2019-02-20 14:33] VITALS: BP 109/57
--- NOTE | 2019-02-20 15:08 | Post Anesthesia Evaluation ---
- Post Anesthesia Evaluation Patient Participated: Yes Airway Patent: Yes Stable Respiratory Function: Yes Nausea/Vomiting: No Temp > 96.8F: Yes Pain Manageable: Yes Adequeate Hydration: Yes Anesthesia Complications: No
== END 2019-02-20 15:25 | disposition home or self-care (01) ==
LOC: OR 09:08
PROVIDERS: ATTEND Surgery Vascular Surgery
DX: I12.0 Hypertensive chronic kidney disease with stage 5 chronic kidney disease or end stage renal disease (principal); N18.6 End stage renal disease; D64.9 Anemia, unspecified; G43.909 Migraine, unspecified, not intractable, without status migrainosus; G47.30 Sleep apnea, unspecified; E05.90 Thyrotoxicosis, unspecified without thyrotoxic crisis or storm; F17.210 Nicotine dependence, cigarettes, uncomplicated; Z90.49 Acquired absence of other specified parts of digestive tract; Z98.890 Other specified postprocedural states; Z84.1 Family history of disorders of kidney and ureter; Z79.899 Other long term (current) drug therapy; Z98.891 History of uterine scar from previous surgery; Z91.81 History of falling; Z82.49 Family history of ischemic heart disease and other diseases of the circulatory system
CPT/HCPCS: 36415; 36821; 80048; 82962; 85025; C1757; J1100; J1644; J2370; J2405; J2704; J3010; J3490; J7030; J7040; J7050

== ENCOUNTER 2019-03-02 08:49 | Day surgery (SDC) | payer MEDICARE ==
[~2019-03-02 08:49] MED LIST changes: -ANCEF/NS 1 GM/50 ML 1 GM/50 ML BAG IV NR; +HEPARIN 10,000 UNITS/10 ML IV ONE; +HEPARIN 10,000 UNITS/10 ML ONE; +MARCAINE 0.5% INFILTRATI ONE; +NACL 0.9% 500 ML 500 ML ONE; +NACL 0.9% 500 ML IV ONE; +NACL 0.9% IR ONE; +PAPAVERINE ONE; +PROTAMINE SULFATE ONE
[2019-03-02] MEDS ORDERED: SUBLIMAZE IV PRN (09:12)
[2019-03-02] MEDS ORDERED: ZOFRAN IV PRN (09:12)
[2019-03-02] MEDS ORDERED: SUBLIMAZE ONE ×2 (09:25→11:29)
[2019-03-02] MEDS ORDERED: DIPRIVAN 10 MG/ML IV ONE ×5 (09:25→11:20)
--- NOTE | 2019-03-02 09:42 | Anesthesia Day of Surgery ---
Anesthesia Day of Surgery - Day of Surgery Patient Examined: Yes Patient H&P Reviewed: Yes Patient is NPO: Yes Beta Blockers: Yes
--- NOTE | 2019-03-02 09:44 | Anesthesia Consultation ---
Anesthesia Consult and Med Hx Date of service: 03/02/19 - Airway Anesthetic Teeth Evaluation: Chipped ROM Head & Neck: Adequate Mental/Hyoid Distance: Adequate Mallampati Class: Class I Intubation Access Assessment: Good - Pre-Operative Health Status ASA Pre-Surgery Classification: ASA3 Proposed Anesthetic Plan: General - Pulmonary Hx Smoking: Yes (09/16 PPD X 20 YRS) Hx Asthma: No SOB: Yes COPD: No Hx Pneumonia: No Hx Sleep Apnea: Yes (DX SLEEP APNEA , NO CPAP USE.) - Cardiovascular System Hx Hypertension: Yes - Central Nervous System Hx Psychiatric Problems: No - Endocrine Hx Renal Disease: Yes Hx End Stage Renal Disease: Yes (NEW AVG NOT WORKING; last HD yesterday) Hx Hyperthyroidism: Yes - Hematic Hx Anemia: Yes - Other Systems Hx Cancer: No - Additional Comments Anesthesia Medical History Comments: Here recently
--- NOTE | 2019-03-02 09:52 | Short Stay Summary ---
Short Stay Documentation Date of service: 03/02/19 Narrative H&P: The patient is a 43-year-old female with a history of end-stage renal disease who is currently on hemodialysis through a right internal jugular permacath. She recently underwent creation of a left radiocephalic arteriovenous fistula creation however this failed shortly after the creation. She is in need of long-term dialysis access and has adequate vein for creation of a brachiocephalic arteriovenous fistula. She is being brought in today for crea tion. - History Principal diagnosis: End-Stage Renal Disease Past Medical History: dialysis, hypertension, renal failure, other (morbid obesity) Past Surgical History: cholecystectomy, , hernia repair (3), Other (left radiocephalic arteriovenous fistula creation, right internal jugular permacath placement) - Allergies and Medications Current Medications: Allergies No Known Allergies Allergy (Verified 02/16/19 09:53) Home Medications Medication Instructions Recorded Confirmed Last Taken Type Metoprolol [Lopressor TAB] 25 mg PO BID #60 tablet 02/10/19 03/01/19 02/19/19 17:00 Rx Ondansetron (Nf) [Zofran TAB] 8 mg PO Q8HR PRN #16 tablet 02/10/19 03/01/19 Unknown Rx Pantoprazole [Protonix TAB] 40 mg PO DAILY 02/13/19 03/01/19 02/19/19 09:00 History Sevelamer Carbonate [Renvela] 1,600 mg PO TID 02/13/19 03/01/19 02/19/19 17:00 History amLODIPine [Norvasc] 10 mg PO DAILY 02/13/19 03/01/19 02/19/19 09:00 History HYDROcodone/APAP 7.5-325 [[place] 1 each PO Q6HR PRN #40 tablet 02/20/19 03/01/19 Unknown Rx 7.5/325] Active Medications Fentanyl (Sublimaze) 50 mcg IV Q5MIN PRN PRN Reason: Pain , Severe (7-10) Stop: 03/02/19 18:00 Sodium Chloride (Nacl 0.9% 1000 Ml) 1,000 mls @ 42 mls/hr IV DIRECT PRINCESS Ondansetron HCl (Zofran) 4 mg IV ONCE PRN PRN Reason: Nausea And Vomiting Stop: 03/02/19 18:00 Scopolamine (Transderm-Scop) 1 each TD PREOP NR Stop: 03/05/19 09:59 - Physical exam General appearance: no acute distress Lungs: Normal air movement Heart: Regular rate Gastrointestinal: normal Female Genitourinary: deferred Rectal Exam: deferred Extremities: no ischemia, abnormal (left arm incision is clean dry and intact without evidence of infection, palpable left radial pulse, no palpable thrill in left radiocephalic fistula) - Brief post op/procedure progress note Date of procedure: 03/02/19 Pre-op diagnosis: End-Stage Renal Disease Post-op diagnosis: same Procedure: Creation of Left Brachiocephalic Arteriovenous Fistula Anesthesia: MAC, local Findings: The vein appeared a bit sclerotic as if it had been accessed for lab draws or IV access however the patient had a palpable thrill at the completion of the case. Surgeon: ENMA HANSEN Estimated blood loss: 50-100ml Pathology: none Condition: stable - Disposition Condition at discharge: Good Disposition: DC-01 TO HOME OR SELFCARE Short Stay Discharge Plan Activity: other (no heavy lifting with left arm, use stress ball as often as possible) Wound: open to air, keep clean and dry, other (okay to wash the wound with soap and water but do not soak in water) Follow up with: ENMA HANSEN MD [Staff Physician] - 14 Days Prescriptions: HYDROcodone/APAP 7.5-325 [[place] 7.5/325] 1 each PO Q6HR PRN #40 tablet PRN Reason: Pain
[2019-03-02] MEDS ORDERED: TRANSDERM-SCOP TD NR (10:00)
[2019-03-02] MEDS ORDERED: NACL 0.9% 1000 ML 1,000 ML IV SCH (10:00)
[2019-03-02] MEDS ORDERED: VERSED ONE ×2 (10:24)
[2019-03-02] MEDS ORDERED: ZOFRAN ONE (10:25)
[2019-03-02] MEDS ORDERED: ANCEF/STERILE WATER 2 GM/20 ML IV NR (10:26)
[2019-03-02] MEDS ORDERED: XYLOCAINE 1% 20 mL ONE (10:32)
[2019-03-02] MEDS ORDERED: XYLOCAINE 1% 20 mL INFILTRATI ONE ×2 (10:45)
[2019-03-02] MEDS ORDERED: NACL 0.9% 500 ML IV ONE (11:10)
[2019-03-02] MEDS ORDERED: HEPARIN 10,000 UNITS/10 ML IV ONE (11:10)
[2019-03-02] MEDS ORDERED: NACL 0.9% IR ONE (11:14)
[2019-03-02] MEDS ORDERED: KETALAR ONE (11:30)
[2019-03-02] MEDS ORDERED: MARCAINE 0.5% INFILTRATI ONE (11:47)
--- NOTE | 2019-03-02 12:20 | Operative Report ---
Operative Report Operative Report: Date of procedure: 03/02/2019 Pre-operative diagnosis: End-Stage Renal Disease Post-operative diagnosis: End-Stage Renal Disease Procedure(s): Creation of Left Brachial Artery to Cephalic Vein Arteriovenous Fistula Surgeon: Dexter Keane MD Carton Stenciler: None Anesthesia: Local/MAC EBL: 50 mL Counts: Correct Complications: None Condition: Stable Findings: The vein appeared sclerotic as if it had been accessed for lab draws or IV access. The patient had a palpable thrill at the completion of the case. Specimen: None Indications: The patient is a 43-year-old female with history of end-stage renal disease who recently underwent creation of a left radiocephalic arteriovenous fistula that f leisa shortly after creation. She returns for creation of a left brachiocephalic arteriovenous Versed. She was given the risks, benefits, and alternative procedures and consents to the procedure. Description of Procedure: The patient was brought to the operating room and laid in supine position after general endotracheal anesthesia was administered the patient was prepped and draped in normal sterile fashion. After anesthetizing the skin a transverse incision was created just below the antecubital crease. Dissection was carried down to the the cephalic vein using sharp dissection. The vein was dissected out both proximally and distally and suture ligated and divided distally. I then ran a 3 Asa proximally in the vein, to ensure patency of the vein. Then flushed the vein with heparinized saline and flow was controlled with a bulldog clamp. I then dissected out the brachial artery through this incision circumferentially both proximal and distal and controlled the artery with vessel loops. I then placed the vessel loops on tension controlling the flow through the artery and created an arteriotomy using an 11 blade and May scissors. I created an end to side anastomosis between the cephalic vein and brachial artery using a 6-0 Prolene in running fashion. Prior to completing the anastomosis I flushed the artery both proximally and distally and then advanced a 3 Asa proximally to break the spasm in the artery. I then completed the anastomosis and removed all vessel loops allowing flow into the fistula which had an excellent thrill. I achieved hemostasis with a combination of direct pressure and electrocautery. Once hemostasis was achieved I anesthetized the wound with Marcaine. I then closed the wound in 2 layers and 3-0 Vicryl in a running fashion to close the deep dermal layer and 4-0 Monocryl in a running fashion in the subcuticular layer. I dressed the wound with Surgicel. The patient tolerated the procedure well, all sponge needle and instrument counts were correct. The patient was taken to recovery in stable condition.
[2019-03-02] MEDS ORDERED: NORCO 7.5/325 PO PRN (12:27)
[2019-03-02 13:55] VITALS: BP 144/92
== END 2019-03-02 08:50 | disposition home or self-care (01) ==
LOC: OR 08:49
PROVIDERS: ATTEND Surgery Vascular Surgery
DX: I12.0 Hypertensive chronic kidney disease with stage 5 chronic kidney disease or end stage renal disease (principal); N18.6 End stage renal disease; F17.210 Nicotine dependence, cigarettes, uncomplicated; D64.9 Anemia, unspecified; G43.909 Migraine, unspecified, not intractable, without status migrainosus; I10 Essential (primary) hypertension; G47.30 Sleep apnea, unspecified; K21.9 Gastro-esophageal reflux disease without esophagitis; E05.90 Thyrotoxicosis, unspecified without thyrotoxic crisis or storm; Z98.891 History of uterine scar from previous surgery; Z79.899 Other long term (current) drug therapy; Z90.49 Acquired absence of other specified parts of digestive tract; Z91.81 History of falling; Z98.890 Other specified postprocedural states; Z84.1 Family history of disorders of kidney and ureter; Z82.49 Family history of ischemic heart disease and other diseases of the circulatory system
CPT/HCPCS: 36821; 82803; C1757; J1644; J2250; J2405; J2704; J3010; J7030; J7040; J2440; J2720

== ENCOUNTER 2019-04-07 18:40 | Inpatient (IN) | payer MEDICARE ==
--- NOTE | 2019-04-07 19:06 | Event Note ---
ED Screening Note Date of service: 04/07/19 Time: 19:03 ED Screening Note: This is a 43 y.o. F. that presents to the ER with LUE pain that started 2 days ago. Patient received 2 fistula 1 month ago which neither one are working. Reports sharp constant pain and decreased ROM. Dialysis and instructed to F/U in ER. Current smoker PMH Anemia, HTN, and ESRD This initial assessment/diagnostic orders/clinical plan/treatment(s) is/are subject to change based on patients health status, clinical progression and re- assessment by fellow clinical providers in the ED. Further treatment and workup at subsequent clinical providers discretion. Patient/guardian urged not to elope from the ED as their condition may be serious if not clinically assessed and managed. Initial orders include: Labs
--- NOTE | 2019-04-07 19:30 | Emergency Department Report ---
ED General Adult HPI - General Chief complaint: Extremity Problem,Nontraumatic Stated complaint: L ARM PAIN Time Seen by Provider: 04/07/19 19:30 Source: patient, EMS Mode of arrival: Wheelchair Limitations: No Limitations - History of Present Illness Initial comments: Patient is a 43 year old female that presents to the emergency room with complaints of left upper arm pain. Patient states her arm pain Started this morning and is severe. Patient states the pain is intermittent. Patient states the pain is not radiating. Patient states the tenderness absent. Patient states that the pain is worsening. Patient states it's her entire arm and she is not able to move it. Patient denies trauma or fall. Patient states she had a fistula placed a 03/02/2019 and it is causing her severe pain. -: Sudden Location: left, upper extremity Radiation: non-radiation Severity scale (0 -10): 10 Quality: stabbing, crushing, sharp Consistency: constant Improves with: rest Worsens with: movement Associated Symptoms: denies: confusion, chest pain, cough, diaphoresis, fever/chills, headaches, loss of appetite, malaise, nausea/vomiting, rash, seizure, shortness of breath, syncope, weakness Treatments Prior to Arrival: none - Related Data Home Medications Medication Instructions Recorded Confirmed Last Taken Pantoprazole [Protonix TAB] 40 mg PO DAILY 02/13/19 04/08/19 03/02/19 10:05 amLODIPine [Norvasc] 10 mg PO DAILY 02/13/19 04/08/19 03/02/19 10:05 Previous Rx's Medication Instructions Recorded Last Taken Type Metoprolol [Lopressor TAB] 25 mg PO BID #60 tablet 02/10/19 03/01/19 Rx Ondansetron (Nf) [Zofran TAB] 8 mg PO Q8HR PRN #16 tablet 02/10/19 03/01/19 Rx Allergies Allergy/AdvReac Type Severity Reaction Status Date / Time No Known Allergies Allergy Verified 02/16/19 09:53 ED Review of Systems ROS: Stated complaint: L ARM PAIN Other details as noted in HPI Constitutional: denies: chills, fever Eyes: denies: eye pain, eye discharge, vision change ENT: denies: ear pain, throat pain Respiratory: denies: cough, shortness of breath, wheezing Cardiovascular: denies: chest pain, palpitations Endocrine: no symptoms reported Gastrointestinal: denies: abdominal pain, nausea, diarrhea Genitourinary: denies: urgency, dysuria, discharge Musculoskeletal: denies: back pain, joint swelling, arthralgia Skin: denies: rash, lesions Neurological: denies: headache, weakness, paresthesias Psychiatric: denies: anxiety, depression Hematological/Lymphatic: denies: easy bleeding, easy bruising ED Past Medical Hx - Past Medical History Previous Medical History?: Yes Hx Hypertension: Yes Hx Congestive Heart Failure: No Hx Diabetes: No Hx GERD: Yes Hx Renal Disease: Yes Hx Headaches / Migraines: Yes (Migraines) Hx Asthma: No Hx COPD: No Hx HIV: No Additional medical history: Fluid on brain - Surgical History Past Surgical History?: Yes Hx Cholecystectomy: Yes Additional Surgical History: C- Section, 3 hernia repairs, gallbladder removed. Dialysis shunt placed in left upper extremity - Family History Family history: no significant - Social History Smoking Status: Current Every Day Smoker Substance Use Type: Alcohol - Medications Home Medications: Home Medications Medication Instructions Recorded Confirmed Last Taken Type Metoprolol [Lopressor TAB] 25 mg PO BID #60 tablet 02/10/19 04/08/19 03/01/19 Rx Ondansetron (Nf) [Zofran TAB] 8 mg PO Q8HR PRN #16 tablet 02/10/19 04/08/19 03/01/19 Rx Pantoprazole [Protonix TAB] 40 mg PO DAILY 02/13/19 04/08/19 03/02/19 10:05 History amLODIPine [Norvasc] 10 mg PO DAILY 02/13/19 04/08/19 03/02/19 10:05 History ED Physical Exam - General Limitations: No Limitations General appearance: alert, in no apparent distress - Head Head exam: Present: atraumatic, normocephalic - Eye Eye exam: Present: normal appearance - ENT ENT exam: Present: mucous membranes moist - Neck Neck exam: Present: normal inspection - Respiratory Respiratory exam: Present: normal lung sounds bilaterally. Absent: respiratory distress - Cardiovascular Cardiovascular Exam: Present: regular rate, normal rhythm. Absent: systolic murmur, diastolic murmur, rubs, gallop - GI/Abdominal GI/Abdominal exam: Present: soft, normal bowel sounds - Extremities Exam Extremities exam: Present: normal inspection (except for HD shunt left upper arm.), tenderness (tenderness to the left upper arm) - Back Exam Back exam: Present: normal inspection - Neurological Exam Neurological exam: Present: alert, oriented X3 - Psychiatric Psychiatric exam: Present: normal affect, normal mood - Skin Skin exam: Present: warm, dry, intact, normal color. Absent: rash ED Course Vital Signs 04/07/19 04/07/19 04/07/19 19:03 19:40 20:00 Temperature 98.3 F 98.4 F Pulse Rate 118 H 106 H Respiratory 20 16 16 Rate Blood Pressure 131/89 Blood Pressure 127/53 [Right] O2 Sat by Pulse 97 96 Oximetry 04/07/19 04/07/19 04/07/19 20:30 20:40 21:00 Temperature Pulse Rate 106 H Respiratory 16 16 16 Rate Blood Pressure Blood Pressure 127/73 [Right] O2 Sat by Pulse 96 Oximetry 04/07/19 04/07/19 04/07/19 21:10 21:45 22:15 Temperature Pulse Rate Respiratory 16 16 17 Rate Blood Pressure Blood Pressure [Right] O2 Sat by Pulse Oximetry 04/07/19 04/07/19 04/07/19 23:15 23:20 23:50 Temperature Pulse Rate 105 H Respiratory 21 21 17 Rate Blood Pressure Blood Pressure 134/78 [Right] O2 Sat by Pulse 98 Oximetry 04/08/19 02:30 Temperature Pulse Rate 92 H Respiratory 12 Rate Blood Pressure Blood Pressure 129/74 [Right] O2 Sat by Pulse 100 Oximetry - Reevaluation(s) Reevaluation #1: Patient is having extreme pain in her left arm. Patient will have an IV placed and pain meds given 04/07/19 19:35 Reevaluation #2: Patient is on 2 mg of Dilaudid. Patient is complaining of 10 out of 10 pain and patient will be given another milligram of Dilaudid and I'll re-consult Dr. Keane 04/07/19 21:31 Reevaluation #3: Patient tried to take in by mouth intake but vomited. Patient is still complaining of left upper extremity pain. Patient another milligram Dilaudid and 4 of Zofran. 04/07/19 22:38 Reevaluation #4: I discussed all results with patient. Discussed plan of care outpatient. Patient agrees to plan of care and admission. Patient will be admitted to the hospital service 04/08/19 00:17 - Consultations Consultation #1: Dr. Keane paged for patient. Dr. Keane is the patient's vascular surgeon. Dr. Keane states that the patient has been complaining of left arm pain since the graft was placed and the patient has never followed up in the office. Dr. Keane states the patient has called the office in the on-call line trying to get pain medications but has never come to the office for follow-up. Dr. Keane states he has requested the patient to come to the office many times but the patient has never shown up. Dr. Keane does not recommend any studies for the vasculature only recommends a medications and discharged to follow up with him.. 04/07/19 19:55 Discussed case again with Dr. Keane. Dr. Keane states that it is highly unlikely this is coming from her dialysis fistula that is nonfunctional 04/07/19 21:33 Consultation #2: Hospitalist consult for admission. Hospitalist to admit patient. Hospitalist to assume care patient. 04/08/19 00:37 ED Medical Decision Making - Lab Data Result diagrams: 04/08/19 02:20 04/08/19 02:20 - Radiology Data Radiology results: report reviewed CT upper extrem LT wo con INDICATION / CLINICAL INFORMATION: left upper ext pain. TECHNIQUE: All CT scans at this location are performed using CT dose reduction for ALARA by means of automated exposure control. COMPARISON: None available. FINDINGS: Calcification is seen adjacent to the tip of the olecranon suggesting prior avulsion injury. A small amount of fluid is seen in the same area. The triceps tendon attaches to this calcification. Subcutaneous edema is present. IMPRESSION: Calcification is seen adjacent to the tip the olecranon suggesting an old avulsion injury. This less likely represents a destructive process. The triceps tendon attaches to this calcification. A small amount of fluid is present in the area with diffuse subcutaneous edema in the posterior elbow. - Medical Decision Making Patient is a 43-year-old female that presents with left arm pain. Patient had a CT scan of her left upper extremity shows swelling posterior to the elbow. Patient found to have cellulitis of the posterior elbow and and intractable pain in the arm. Vascular surgery consulted. Patient admitted to the hospitalist service. Patient's labs system with end-stage renal disease and found to have a lactic acidosis and elevated sedimentation rate and elevated WBC. Patient given IV antibiotics and fluids. Patient given multiple doses of Dilaudid. Patient had nausea and vomiting with any by mouth intake. - Differential Diagnosis cellulitis. Intractable arm pain. Critical Care Time: Yes Critical care attestation.: If time is entered above; I have spent that time in minutes in the direct care of this critically ill patient, excluding procedure time. Critical Care Time: 45 minutes ED Disposition Clinical Impression: Left arm pain, Intractable pain, Lactic acid acidosis, End-stage renal disease needing dialysis, CKD (chronic kidney disease) requiring chronic dialysis, SIRS (systemic inflammatory response syndrome) Anemia Qualifiers: Anemia type: unspecified type Qualified Code(s): D64.9 - Anemia, unspecified Disposition: 09 OP ADMIT IP TO THIS HOSP Is pt being admited?: Yes Does the pt Need Aspirin: No Condition: Critical Time of Disposition: 00:52
[2019-04-07] MEDS ORDERED: DILAUDID IV ONE ×4 (19:36→22:39)
[2019-04-07] MEDS ORDERED: ZOFRAN IV ONE ×2 (19:41→22:38)
[2019-04-07 20:07] LABS: Basophils # (Auto) 0.1 K/mm3 (0.0-0.1); Basophils % (Auto) 0.4 % (0.0-1.8); Eosinophils # (Auto) 0.1 K/mm3 (0.0-0.4); Eosinophils % (Auto) 0.6 % (0.0-4.3); Hematocrit 31.4 % (30.3-42.9); Hemoglobin 9.9 gm/dl (10.1-14.3); Lymphocytes # (Auto) 1.7 K/mm3 (1.2-5.4); Lymphocytes % (Auto) 14.2 % (13.4-35.0); Mean Corpuscular HGB Conc 32 % (30-34); Mean Corpuscular Volume 87 fl (79-97); Monocytes # (Auto) 0.6 K/mm3 (0.0-0.8); Monocytes % (Auto) 4.6 % (0.0-7.3); Platelet Count 386 K/mm3 (140-440); Red Blood Count 3.61 M/mm3 (3.65-5.03); Red Cell Distribution Width 18.4 % (13.2-15.2)
[2019-04-07 20:20] LABS: Albumin 3.6 g/dL (3.9-5)
[2019-04-07 20:21] LABS: INR 1.01 (0.87-1.13)
[2019-04-07 20:23] LABS: Partial Thromboplastin Time 52.3 Sec. (24.2-36.6)
[2019-04-07] MEDS ORDERED: ZOFRAN ONE (22:40)
[2019-04-07] MEDS ORDERED: CLEOCIN 600 MG/50 mL 600 MG/50 ML BAG IV ONE (23:37)
--- NOTE | 2019-04-08 00:04 | Cat Scan Report ---
CT upper extrem LT wo con INDICATION / CLINICAL INFORMATION: left upper ext pain. TECHNIQUE: All CT scans at this location are performed using CT dose reduction for ALARA by means of automated e xposure control. COMPARISON: None available. FINDINGS: Calcification is seen adjacent to the tip of the olecranon suggesting prior avulsion injury. A small amount of fluid is seen in the same area. The triceps tendon attaches to this calcification. Subcutan eous edema is present. IMPRESSION: Calcification is seen adjacent to the tip the olecranon suggesting an old avulsion injury. This less likely represents a destructive process. The triceps tendon attaches to this calcification. A small a mount of fluid is present in the area with diffuse subcutaneous edema in the posterior elbow. Signer Name: Surya BULLARD Signed: 04/08/2019 12:00 AM Workstation Name: [id number]
[2019-04-08] MEDS ORDERED: NACL 0.9% 1000 ML 1,000 ML IV ONE (00:50)
[2019-04-08] MEDS ORDERED: MORPHINE IV PRN (01:35)
[2019-04-08] MEDS ORDERED: SODIUM CHLORIDE FLUSH SYRINGE 10 ML IV PRN (01:35)
[2019-04-08] MEDS ORDERED: TYLENOL PO PRN (01:35)
--- NOTE | 2019-04-08 01:37 | History and Physical Report ---
History of Present Illness Date of examination: 04/08/19 History of present illness: 43 -year-old man with a history of hypertension, ESRD comes to the emergency room with complaints ofleft arm pain. Pain started 6 weeks ago after the placement of AVF, constant, described as a achy sensation, with intensity of 5/10, no radiation, relieved with pain medications. Review of systems Constitutional: no weight loss, fever, chills Ears, eyes, nose, mouth and throat: no nasal congestion, no nasal discharge, no sinus pressure, no vision change, no red eye. Neck: No neck pain or rigidity. Cardiovascular: no palpitations, chest pain Respiratory: no cough, shortness of breath Gastrointestinal: no hematochezia, abdominal pain Genitourinary : no frequency , no hematuria Musculoskeletal: no joint swelling or muscle ache Integumentary: no rash, no pruritis Neurological: no parathesias, no focal weakness Endocrine: no cold or heat intolerance, no polyuria or polydipsia Hematologic/Lymphatic: no easy bruising, no easy bleeding, no gland swelling Allergic/Immunologic: no urticaria, no angioedema. PAST MEDICAL HISTORY:hypertension, ESRD, obesity PAST SURGICAL HISTORY: Hernia repair, c/s, GB, AVF, hernia SOCIAL HISTORY: Denies alcohol, tobacco or drug use FAMILY HISTORY: Hypertension Medications and Allergies Allergies Allergy/AdvReac Type Severity Reaction Status Date / Time No Known Allergies Allergy Verified 02/16/19 09:53 Home Medications Medication Instructions Recorded Confirmed Last Taken Type Metoprolol [Lopressor TAB] 25 mg PO BID #60 tablet 02/10/19 04/08/19 03/01/19 Rx Ondansetron (Nf) [Zofran TAB] 8 mg PO Q8HR PRN #16 tablet 02/10/19 04/08/19 03/01/19 Rx Pantoprazole [Protonix TAB] 40 mg PO DAILY 02/13/19 04/08/19 03/02/19 10:05 History amLODIPine [Norvasc] 10 mg PO DAILY 02/13/19 04/08/19 03/02/19 10:05 History Active Meds: Active Medications Sodium Chloride (Nacl 0.9% 1000 Ml) 1,000 mls @ 999 mls/hr IV BOLUS ONE Stop: 04/08/19 01:50 Last Admin: 04/08/19 01:25 Dose: 999 mls/hr Documented by: Exam - Physical Exam Narrative exam: Gen. appearance: Patient lying in bed, no apparent distress HEENT: Normocephalic, atraumatic, pupils equally round and reactive to light, extraocular movement intact, and no sclericterus,. No JVD or thyromegaly or nodule,neck supple, no carotid bruit ,mucous membranes moist, no exudate or erythema Heart: S1, S2, regular rate and rhythm Lungs: Clear to auscultation bilaterally, breathing comfortable Abdomen:Positive bowel sounds, nontender, nondistended, no organomegaly Extremity: No edema, cyanosis, clubbing Skin: No rash, nodules, warm, dry Neuro: Oriented 3, cranial nerves II-12 intact, speech fluent, motor,sensory intact - Constitutional Vitals: Temp Pulse Resp BP Pulse Ox 98.4 F 105 H 17 134/78 98 04/07/19 19:40 04/07/19 23:15 04/07/19 23:50 04/07/19 23:15 04/07/19 23:15 Results - Labs CBC & Chem 7: 04/08/19 02:20 04/07/19 19:49 Labs: Abnormal lab results 04/07/19 04/07/19 04/07/19 Range/Units 19:49 19:49 19:49 WBC 12.1 H (4.5-11.0) K/mm3 RBC 3.61 L (3.65-5.03) M/mm3 Hgb 9.9 L (10.1-14.3) gm/dl MCH 27 L (28-32) pg RDW 18.4 H (13.2-15.2) % Seg Neutrophils % 80.2 H (40.0-70.0) % Seg Neutrophils # 9.7 H (1.8-7.7) K/mm3 APTT 52.3 H (24.2-36.6) Sec. Sodium 136 L (137-145) mmol/L Chloride 94.7 L (98-107) mmol/L BUN 33 H (7-17) mg/dL Creatinine 6.4 H (0.7-1.2) mg/dL Lactic Acid (0.7-2.0) mmol/L Alkaline Phosphatase 180 H (35-129) units/L Albumin 3.6 L (3.9-5) g/dL 04/07/19 04/08/19 Range/Units 22:27 00:04 WBC (4.5-11.0) K/mm3 RBC (3.65-5.03) M/mm3 Hgb (10.1-14.3) gm/dl MCH (28-32) pg RDW (13.2-15.2) % Seg Neutrophils % (40.0-70.0) % Seg Neutrophils # (1.8-7.7) K/mm3 APTT (24.2-36.6) Sec. Sodium (137-145) mmol/L Chloride (98-107) mmol/L BUN (7-17) mg/dL Creatinine (0.7-1.2) mg/dL Lactic Acid 3.70 H* 3.60 H* (0.7-2.0) mmol/L Alkaline Phosphatase (35-129) units/L Albumin (3.9-5) g/dL Assessment and Plan CT US reviewed Assessment JAZZY zamorano Elevated lactic acid ESRD on dialysis Hypertension Obesity Plan Admit to medicine Start emperic zosyn, vascular consult IV morphine, DVT prophalaxis
[2019-04-08] MEDS ORDERED: APRESOLINE IV PRN (01:54)
[2019-04-08 02:32] LABS: Basophils % (Auto) 0.4 % (0.0-1.8); Eosinophils % (Auto) 0.4 % (0.0-4.3); Hematocrit 28.2 % (30.3-42.9); Lymphocytes % (Auto) 11.6 % (13.4-35.0); Mean Corpuscular HGB Conc 32 % (30-34); Mean Corpuscular Volume 87 fl (79-97); Monocytes # (Auto) 0.6 K/mm3 (0.0-0.8); Monocytes % (Auto) 6.6 % (0.0-7.3); Platelet Count 342 K/mm3 (140-440); Red Blood Count 3.25 M/mm3 (3.65-5.03); Red Cell Distribution Width 18.3 % (13.2-15.2)
[2019-04-08 02:51] LABS: Calcium 7.7 mg/dL (8.4-10.2)
[2019-04-08] MEDS ORDERED: DILAUDID IV ONE (03:56)
[2019-04-08] MEDS: ZOFRAN IV PRN ×2 (04:10→07:19)
[2019-04-08] MEDS: ZOSYN/NS 2.25 GM/50ML 2.25 GM/50 ML BAG IV SCH ×3 (06:25→21:08)
[2019-04-08] MEDS ORDERED: NORCO 5/325 PO ONE (06:39)
--- NOTE | 2019-04-08 09:36 | Event Note ---
Date: 04/08/19 Patient seen and examined 43 -year-old man with a history of hypertension, ESRD comes to the emergency room with complaints of left arm pain at the AV graft area Continue antibiotics, obtain blood culture, monitor clinically and follow vascular surgery recommendation
[2019-04-08] MEDS: SODIUM CHLORIDE FLUSH SYRINGE 10 ML IV SCH ×2 (11:21→21:09)
[2019-04-08] MEDS: LOVENOX SUB-Q SCH (11:21)
[2019-04-08] MEDS: PERCOCET 5/325 PO PRN ×2 (12:03→18:33)
--- NOTE | 2019-04-08 13:21 | Consultation ---
History of Present Illness - Reason for Consult Consult date: 04/08/19 Left Arm Pain And History of Left Fistula Creation Requesting physician: JOSEY PADRON III - History of Present Illness The patient is a 43-year-old female with a history of end-stage renal disease was attempted creation of long-term access in her left arm 2 with a Mike creation on 02/20/2019 and a brachiocephalic on 03/02/2019. Both of those fistulas failed shortly after the creation. The patient has been noncompliant followed up since the procedures. She did call the office with complaints of pain and numbness at the incisional site and despite given an appointment she failed to follow-up. She presented to the emergency department with complaints of left arm pain that she states started on this past . She states she fell asleep with her arm extended and was she awoke she noted pain on the posterior elbow. She states this is different than the pain and numbness she was complaining of operation as the pain had resolved. She denies any fever or chills or history of drainage from any of his incisions. She has no additional complaints at this time. Her workup included a CT scan of her left arm which reveals subcutaneous edema in the posterior elbow as well as calcifications around the olecranon suggestive of an old olecranon fracture. There were no additional findings. Past History Past Medical History: arthritis, ESRD, hypertension, other (morbid obesity, sleep apnea) Past Surgical History: cholecystectomy, , hernia repair, Other (left mike creation, left brachiocephalic creation, ) Social history: no significant social history Medications and Allergies Allergies Allergy/AdvReac Type Severity Reaction Status Date / Time No Known Allergies Allergy Verified 02/16/19 09:53 Home Medications Medication Instructions Recorded Confirmed Last Taken Type Metoprolol [Lopressor TAB] 25 mg PO BID #60 tablet 02/10/19 04/08/19 03/01/19 Rx Ondansetron (Nf) [Zofran TAB] 8 mg PO Q8HR PRN #16 tablet 02/10/19 04/08/19 03/01/19 Rx Pantoprazole [Protonix TAB] 40 mg PO DAILY 02/13/19 04/08/19 03/02/19 10:05 History amLODIPine [Norvasc] 10 mg PO DAILY 02/13/19 04/08/1903/02/19 10:05 History Active Meds: Active Medications Acetaminophen (Tylenol) 650 mg PO Q4H PRN PRN Reason: Pain MILD(1-3)/Fever >100.5/BROWN Enoxaparin Sodium (Lovenox) 30 mg SUB-Q QDAY [facility] Last Admin: 04/08/19 11:21 Dose: Not Given Documented by: Hydralazine HCl (Apresoline) 5 mg IV Q6H PRN PRN Reason: Hypertension Piperacillin Sod/Tazobactam Sod (Zosyn/Ns 2.25 Gm/50ml) 2.25 gm in 50 mls @ 100 mls/hr IV Q8HR [facility]; Protocol Last Admin: 04/08/19 06:25 Dose: 100 mls/hr Documented by: Morphine Sulfate (Morphine) 2 mg IV Q4H PRN PRN Reason: Pain, Moderate (4-6) Ondansetron HCl (Zofran) 4 mg IV Q4H PRN PRN Reason: Nausea And Vomiting Last Admin: 04/08/19 07:19 Dose: 4 mg Documented by: Oxycodone/Acetaminophen (Percocet 5/325) 1 tab PO Q6H PRN PRN Reason: Pain, Moderate (4-6) Oxycodone/Acetaminophen (Percocet 5/325) 2 tab PO Q6H PRN PRN Reason: Pain , Severe (7-10) Last Admin: 04/08/19 12:03 Dose: 2 tab Documented by: Sodium Chloride (Sodium Chloride Flush Syringe 10 Ml) 10 ml IV BID [facility] Last Admin: 04/08/19 11:21 Dose: 10 ml Documented by: Sodium Chloride (Sodium Chloride Flush Syringe 10 Ml) 10 ml IV PRN PRN PRN Reason: LINE FLUSH Last Admin: 04/08/19 03:50 Dose: 10 ml Documented by: Review of Systems All systems: negative Exam - Constitutional Vitals: Temp Pulse Resp BP Pulse Ox 98.1 F 101 H 20 134/65 98 04/08/19 11:45 04/08/19 11:45 04/08/19 11:45 04/08/19 11:45 04/08/19 11:45 General appearance: Present: no acute distress, other (right IJ permacath wihtout signs of infection) - Neck Neck: Present: supple - Respiratory Respiratory effort: normal - Cardiovascular Rhythm: regular - Extremities Extremities: no ischemia, pulses intact, pulses symmetrical, abnormal (left arm incisions well healed without evidence of infection or hematoma, nontender, no palpable thrill) - Abdominal General gastrointestinal: Present: soft Female genitourinary: Present: deferred - Rectal Rectal Exam: deferred - Integumentary Integumentary: Present: clear - Psychiatric Psychiatric: appropriate mood/affect Results - Labs CBC & Chem 7: 04/08/19 02:20 04/08/19 02:20 Labs: Abnormal lab results 04/07/19 04/07/19 04/07/19 Range/Units 19:49 19:49 19:49 WBC 12.1 H (4.5-11.0) K/mm3 RBC 3.61 L (3.65-5.03) M/mm3 Hgb 9.9 L (10.1-14.3) gm/dl Hct (30.3-42.9) % MCH 27 L (28-32) pg RDW 18.4 H (13.2-15.2) % Lymph % (Auto) (13.4-35.0) % Lymph # (1.2-5.4) K/mm3 Seg Neutrophils % 80.2 H (40.0-70.0) % Seg Neutrophils # 9.7 H (1.8-7.7) K/mm3 APTT 52.3 H (24.2-36.6) Sec. Sodium 136 L (137-145) mmol/L Chloride 94.7 L (98-107) mmol/L BUN 33 H (7-17) mg/dL Creatinine 6.4 H (0.7-1.2) mg/dL Lactic Acid (0.7-2.0) mmol/L Calcium (8.4-10.2) mg/dL Alkaline Phosphatase 180 H (35-129) units/L Albumin 3.6 L (3.9-5) g/dL 04/07/19 04/08/19 04/08/19 Range/Units 22:27 00:04 02:20 WBC (4.5-11.0) K/mm3 RBC (3.65-5.03) M/mm3 Hgb (10.1-14.3) gm/dl Hct (30.3-42.9) % MCH (28-32) pg RDW (13.2-15.2) % Lymph % (Auto) (13.4-35.0) % Lymph # (1.2-5.4) K/mm3 Seg Neutrophils % (40.0-70.0) % Seg Neutrophils # (1.8-7.7) K/mm3 APTT (24.2-36.6) Sec. Sodium (137-145) mmol/L Chloride (98-107) mmol/L BUN (7-17) mg/dL Creatinine (0.7-1.2) mg/dL Lactic Acid 3.70 H* 3.60 H* 3.10 H* (0.7-2.0) mmol/L Calcium (8.4-10.2) mg/dL Alkaline Phosphatase (35-129) units/L Albumin (3.9-5) g/dL 04/08/19 04/08/19 04/08/19 Range/Units 02:20 02:20 04:56 WBC (4.5-11.0) K/mm3 RBC 3.25 L (3.65-5.03) M/mm3 Hgb 9.0 L (10.1-14.3) gm/dl Hct 28.2 L (30.3-42.9) % MCH (28-32) pg RDW 18.3 H (13.2-15.2) % Lymph % (Auto) 11.6 L (13.4-35.0) % Lymph # 1.0 L (1.2-5.4) K/mm3 Seg Neutrophils % 81.0 H (40.0-70.0) % Seg Neutrophils # (1.8-7.7) K/mm3 APTT (24.2-36.6) Sec. Sodium (137-145) mmol/L Chloride (98-107) mmol/L BUN 33 H (7-17) mg/dL Creatinine 6.4 H (0.7-1.2) mg/dL Lactic Acid 2.90 H* (0.7-2.0) mmol/L Calcium 7.7 L D (8.4-10.2) mg/dL Alkaline Phosphatase (35-129) units/L Albumin (3.9-5) g/dL - Imaging and Cardiology CT scan - chest: other (ct left arm- films reviewed) Assessment and Plan Patient presents with left arm pain that began 2 days ago. She had creation of left AVF x 2 however they never developed. The incisions are well healed without signs of infection. There is no prosthetic that was placed. The patient had initial complaints of pain and numbness however that has resolved and this is a new complaint that is remote from the incision and associated with edema and possible destruction of the olecranon, as demonstrated on CT. Would consider a consult to ortho as her pain is not related to her Vascular Surgery procedure.
[2019-04-08] MEDS: COLACE PO SCH (21:09)
[2019-04-09] MEDS: PERCOCET 5/325 PO PRN ×3 (01:23→18:59)
[2019-04-09] MEDS: ZOSYN/NS 2.25 GM/50ML 2.25 GM/50 ML BAG IV SCH ×2 (05:16→14:41)
[2019-04-09] MEDS: ZOFRAN IV PRN (08:05)
[2019-04-09] MEDS: LOVENOX SUB-Q SCH (11:27)
[2019-04-09] MEDS: COLACE PO SCH ×2 (11:28→21:33)
[2019-04-09] MEDS ORDERED: NON-FORMULARY (Ondansetron (Nf) 8 MG) PO PRN (14:16)
[2019-04-09] MEDS ORDERED: ZOFRAN IV PRN ×2 (14:18→14:45)
--- NOTE | 2019-04-09 14:21 | Progress Note ---
Assessment and Plan LUE pain, pending ortho consult Elevated lactic acid ESRD on dialysis Hypertension Obesity Plan D/c zosyn, as blood cx negative No surgical need per vascular and recommended Ortho consult - will consult ortho - resume home meds for HTN - monitor clinically, consult nephro for HD Subjective Date of service: 04/09/19 Interval history: Patient seen and examined No acute event o/n continue to c/o left arm pain Objective - Constitutional Vitals: Vital Signs - 12hr 04/09/19 04/09/19 05:47 11:44 Temperature 97.9 F 97.9 F Pulse Rate 88 85 Respiratory 16 20 Rate Blood Pressure 110/66 128/74 O2 Sat by Pulse 100 99 Oximetry General appearance: Present: no acute distress, obese - EENT Eyes: PERRL, EOM intact ENT: hearing intact, clear oral mucosa Ears: bilateral: normal - Neck Neck: supple, normal ROM - Respiratory Respiratory effort: normal Respiratory: bilateral: CTA - Cardiovascular Rhythm: regular Heart Sounds: Present: S1 & S2. Absent: gallop, rub Extremities: pulses intact, No edema, normal color, Full ROM - Gastrointestinal General gastrointestinal: Present: soft, non-tender, non-distended, normal bowel sounds - Integumentary Integumentary: clear, warm, dry - Musculoskeletal Musculoskeletal: strength equal bilaterally, other (left arm tenderness) - Neurologic Neurologic: moves all extremities - Psychiatric Psychiatric: memory intact, appropriate mood/affect, intact judgment & insight - Labs CBC & Chem 7: 04/08/19 02:20 04/08/19 02:20 Labs: Abnormal lab results 04/08/19 04/08/19 Range/Units 13:19 16:49 Lactic Acid 3.30 H* 2.20 H* (0.7-2.0) mmol/L
[2019-04-09] MEDS: MIRALAX 3350 PO SCH (16:39)
[2019-04-09] MEDS: SODIUM CHLORIDE FLUSH SYRINGE 10 ML IV SCH ×2 (18:36→21:34)
[2019-04-09] MEDS: LOPRESSOR PO SCH (21:33)
--- NOTE | 2019-04-09 21:49 | XRay Report ---
CLINICAL DATA: left elbow pain TECHNICAL DATA: 4 views of the elbow were obtained, AP, lateral, obliques FINDINGS: Irregular calcifications adjacent to the tip of the olecranon. There is visualization of the anterior humeral fat pad. This is no consistent with a joint effusion. The radial head articulates normally w ith the capitellum and the ulna articulates normally with the trochlea. No obvious fractures identifi ed. IMPRESSION: 1. There is no convincing acute fracture detected at this time. Signer Name: Jesus Golden MD Signed: 04/09/2019 9:45 PM Workstation Name: [id number]
[2019-04-09] MEDS: HABITROL TD SCH (22:48)
[2019-04-10] MEDS: COLACE PO SCH ×2 (09:21→21:22)
[2019-04-10] MEDS: NORVASC PO SCH (09:22)
[2019-04-10] MEDS: LOVENOX SUB-Q SCH (09:22)
[2019-04-10] MEDS: MIRALAX 3350 PO SCH (09:22)
[2019-04-10] MEDS: SODIUM CHLORIDE FLUSH SYRINGE 10 ML IV SCH ×2 (09:24→21:23)
[2019-04-10] MEDS: HABITROL TD SCH (09:24)
[2019-04-10] MEDS: LOPRESSOR PO SCH ×2 (09:27→21:23)
[2019-04-10] MEDS: PROTONIX PO SCH (09:29)
--- NOTE | 2019-04-10 12:19 | Discharge Summary ---
Providers - Providers Date of Admission: 04/08/19 01:35 Date of discharge: 04/10/19 Attending physician: CARINA JEFFERSON 04/08/19 01:13 Consult to Physician [CONS] Routine Comment: Dr. Sanchez spoke with Dr. Hansen @ [phone] Consulting Provider: ENMA HANSEN Physician Instructions: Reason For Exam: arm pain. hd fistula 04/09/19 14:15 Consult to Physician [CONS] Routine Comment: Consulting Provider: LOYDA JACKSON Physician Instructions: Reason For Exam: Left arm pain 04/10/19 12:11 Consult to Physician [CONS] Routine Reason For Exam: ESRD Consulting Provider: CHIQUIS LOPEZ Physician Instructions: Comment: Primary care physician: ORTIZ KEN Hospitalization Condition: Critical Pertinent studies: Left UE CT Left elbow xry Hospital course: Discharge diagnosis: LUE pain, muskuloskeletal vs suspect inflammatory origin - Ortho recommend - depomedrol + lidocaine + marcaine injection... Elevated lactic acid, likely from dehydration ESRD on dialysis Hypertension Obesity Plan D/c zosyn, as blood cx negative No surgical need per vascular and recommended Ortho consult - will consult ortho - resume home meds for HTN - monitor clinically, consult nephro for HD Disposition: DC-01 TO HOME OR SELFCARE Time spent for discharge: 34 minutes Core Measure Documentation - Palliative Care Palliative Care/ Comfort Measures: Not Applicable - Core Measures Any of the following diagnoses?: none Exam - Constitutional Vitals: Temp Pulse Resp BP Pulse Ox 97.8 F 94 H 20 152/100 98 04/10/19 04:42 04/10/19 09:22 04/10/19 04:42 04/10/19 09:22 04/10/19 04:42 General appearance: Present: no acute distress, well-nourished - EENT Eyes: Present: PERRL ENT: hearing intact, clear oral mucosa - Neck Neck: Present: supple, normal ROM - Respiratory Respiratory effort: normal Respiratory: bilateral: CTA - Cardiovascular Heart Sounds: Present: S1 & S2. Absent: rub, click - Extremities Extremities: pulses symmetrical Peripheral Pulses: within normal limits - Abdominal General gastrointestinal: Present: soft, non-tender, non-distended, normal bowel sounds - Integumentary Integumentary: Present: clear, warm, dry - Psychiatric Psychiatric: appropriate mood/affect, intact judgment & insight - Neurologic Neurologic: CNII-XII intact, moves all extremities Plan Activity: advance as tolerated Weight Bearing Status: Non-Weight Bearing Diet: renal Additional Instructions: Parathyroid scan as outpt Follow up with: ORTIZ KEN MD [Primary Care Provider] - 7 Days Prescriptions: Lidocaine [Aspercreme] 1 each TP DAILY #30 adh..patch Polyethylene Glycol 3350 [Powderlax] 17 gm PO AC #10 powd.pack traMADol [Ultram] 50 mg PO Q8HR PRN #20 tablet PRN Reason: Pain
[2019-04-10] MEDS ORDERED: HEPARIN 10,000 UNITS/10 ML IV PRN (12:27)
[2019-04-10] MEDS ORDERED: PROCRIT SUB-Q PRN (12:27)
[2019-04-10] MEDS ORDERED: NACL 0.9% 100 ML IV PRN (12:27)
--- NOTE | 2019-04-10 12:37 | Consultation ---
History of Present Illness - Reason for Consult Consult date: 04/10/19 end stage renal disease - History of Present Illness The patient is a 43 YO female who is well known to our servicewith history significant for Obesity, Hypertension, HLD, Anemia, RICHIE, ESRD on hemodialysis (MWF) and Secondary hyperparathyroidism who presented to [facility] ED with c/o L elbow pain. She states that she fell asleep with her arm extended and when she woke up noticed pain over the posterior elbow. She denies any fall, trauma, swelling, fever, chills, ulceration / drainage, N, V, D, abd pain, cp, cough, sob, dizziness, syncope, rash, dysuria or hematuria. Nephrology was consulted to manage ESRD. Past History Past Medical History: arthritis, dialysis, ESRD, hypertension, other (morbid obesity, sleep apnea) Past Surgical History: cholecystectomy, , hernia repair, Other (left troy creation, left brachiocephalic creation, ) Social history: no significant social history Medications and Allergies Allergies Allergy/AdvReac Type Severity Reaction Status Date / Time No Known Allergies Allergy Verified 02/16/19 09:53 Home Medications Medication Instructions Recorded Confirmed Last Taken Type Metoprolol [Lopressor TAB] 25 mg PO BID #60 tablet 02/10/19 04/08/19 03/01/19 Rx Ondansetron (Nf) [Zofran TAB] 8 mg PO Q8HR PRN #16 tablet 02/10/19 04/08/19 03/01/19 Rx Pantoprazole [Protonix TAB] 40 mg PO DAILY 02/13/19 04/08/19 03/02/19 10:05 History amLODIPine [Norvasc] 10 mg PO DAILY 02/13/19 04/08/19 03/02/19 10:05 History Lidocaine [Aspercreme] 1 each TP DAILY #30 adh..patch 04/10/19 Unknown Rx Polyethylene Glycol 3350 17 gm PO AC #10 powd.pack 04/10/19 Unknown Rx [Powderlax] traMADol [Ultram] 50 mg PO Q8HR PRN #20 tablet 04/10/19 Unknown Rx Active Meds: Active Medications Acetaminophen (Tylenol) 650 mg PO Q4H PRN PRN Reason: Pain MILD(1-3)/Fever >100.5/BROWN Amlodipine Besylate (Norvasc) 10 mg PO DAILY [facility] Last Admin: 04/10/19 09:22 Dose: 10 mg Documented by: Docusate Sodium (Colace) 100 mg PO BID [facility] Last Admin: 04/10/19 09:21 Dose: Not Given Documented by: Enoxaparin Sodium (Lovenox) 30 mg SUB-Q QDAY [facility] Last Admin: 04/10/19 09:22 Dose: Not Given Documented by: Epoetin Conor (Procrit) 10,000 unit SUB-Q GOPI PRN PRN Reason: hemodialysis Heparin Sodium (Porcine) (Heparin 10,000 Units/10 Ml) 3,000 unit IV GOPI PRN PRN Reason: hemodialysis Hydralazine HCl (Apresoline) 5 mg IV Q6H PRN PRN Reason: Hypertension Sodium Chloride (Nacl 0.9%) 100 mls @ 999 mls/hr IV GOPI PRN PRN Reason: Hypotension Metoprolol Tartrate (Lopressor) 25 mg PO BID [facility] Last Admin: 04/10/19 09:27 Dose: 25 mg Documented by: Nicotine (Habitrol) 7 mg TD QDAY [facility] Last Admin: 04/10/19 09:24 Dose: 7 mg Documented by: Ondansetron HCl (Zofran) 4 mg IV Q6H PRN PRN Reason: N/V unrelieved by Rosy Oxycodone/Acetaminophen (Percocet 5/325) 1 tab PO Q6H PRN PRN Reason: Pain, Moderate (4-6) Last Admin: 04/09/19 01:23 Dose: 1 tab Documented by: Oxycodone/Acetaminophen (Percocet 5/325) 2 tab PO Q6H PRN PRN Reason: Pain , Severe (7-10) Last Admin: 04/09/19 18:59 Dose: 2 tab Documented by: Pantoprazole Sodium (Protonix) 40 mg PO DAILY [facility] Last Admin: 04/10/19 09:29 Dose: 40 mg Documented by: Polyethylene Glycol (Miralax 3350) 17 gm PO QDAY [facility] Last Admin: 04/10/19 09:22 Dose: Not Given Documented by: Sodium Chloride (Sodium Chloride Flush Syringe 10 Ml) 10 ml IV BID [facility] Last Admin: 04/10/19 09:24 Dose: 10 ml Documented by: Sodium Chloride (Sodium Chloride Flush Syringe 10 Ml) 10 ml IV PRN PRN PRN Reason: LINE FLUSH Last Admin: 04/08/19 03:50 Dose: 10 ml Documented by: Review of Systems Constitutional: no weight loss, no weight gain, no fever, no chills, no anorexia, no fatigue, no weakness, no poor appetite Breasts: deferred Cardiovascular: high blood pressure, no chest pain, no orthopnea, no edema, no syncope, no lightheadedness, no shortness of breath, no dyspnea on exertion, no leg edema, no decreased exercise tolerance Respiratory: sleep apnea, no cough, no hemoptysis, no shortness of breath, no dyspnea on exertion, no home oxygen Gastrointestinal: no abdominal pain, no nausea, no vomiting, no diarrhea, no melena Genitourinary Female: no dysuria Rectal: no bleeding Musculoskeletal: other (L elbow pain), no muscle weakness Integumentary: no rash, no redness Neurological: no paralysis, no weakness, no syncope, no convulsions, no aphasia, no change in speech, no change in mentation, no confusion, no memory loss Exam - Vital Signs Vital signs: Vital Signs Temp Pulse Resp BP Pulse Ox 98.3 F 118 H 20 131/89 97 04/07/19 19:03 04/07/19 19:03 04/07/19 19:03 04/07/19 19:03 04/07/19 19:03 - General Appearance General appearance: well-developed, well-nourished, appears stated age, obese, other (no distress, R IJ tunnel catheter) EENT: ATNC, PERRL, mucous membranes moist, hearing intact, vision intact Neck: Present: neck supple, trachea midline Respiratory: Clear to Ascultation Heart: regular, S1S2, no murmurs Gastrointestinal: Present: normoactive bowel sounds. Absent: tenderness, distended Integumentary: no rash, warm and dry Neurologic: no focal deficit, no asterixis, alert and oriented x3 Musculoskeletal: Present: other (L elbow tenderness) Results - Lab Results 04/08/19 02:20 04/08/19 02:20 Most recent lab results Calcium 7.7 mg/dL (8.4-10.2) L D 04/08/19 02:20 Assessment and Plan 1. ESRD: Continue hemodialysis three times a week, MWF schedule. HD today. 2. FEN: Started on Sevelamer. Monitor lytes. 3. Anemia: Epogen with HD. 4. L elbow pain: Seen by Ortho. 5. Bacteremia. 6. Severe secondary hyperparathyroidism: Parathyroid scan.
--- NOTE | 2019-04-10 12:58 | Consultation ---
History of Present Illness - [facility] Consult date: 04/10/19 Consult reason: joint pain History of present illness: 43 y/o female with c/o severe left elbow pain, denies hx of injury states just started and gotten worse with time... Past History Past Medical History: arthritis, ESRD, hypertension, other (morbid obesity, sleep apnea) Past Surgical History: cholecystectomy, , hernia repair, Other (left troy creation, left brachiocephalic creation, ) Social history: no significant social history Medications and Allergies Allergies Allergy/AdvReac Type Severity Reaction Status Date / Time No Known Allergies Allergy Verified 02/16/19 09:53 Home Medications Medication Instructions Recorded Confirmed Last Taken Type Metoprolol [Lopressor TAB] 25 mg PO BID #60 tablet 02/10/19 04/08/19 03/01/19 Rx Ondansetron (Nf) [Zofran TAB] 8 mg PO Q8HR PRN #16 tablet 02/10/19 04/08/19 03/01/19 Rx Pantoprazole [Protonix TAB] 40 mg PO DAILY 02/13/19 04/08/19 03/02/19 10:05 History amLODIPine [Norvasc] 10 mg PO DAILY 02/13/19 04/08/19 03/02/19 10:05 History Polyethylene Glycol 3350 17 gm PO AC #10 powd.pack 04/10/19 Unknown Rx [Powderlax] Active Meds: Active Medications Acetaminophen (Tylenol) 650 mg PO Q4H PRN PRN Reason: Pain MILD(1-3)/Fever >100.5/BROWN Amlodipine Besylate (Norvasc) 10 mg PO DAILY [facility] Last Admin: 04/10/19 09:22 Dose: 10 mg Documented by: Bupivacaine HCl (Marcaine 0.5%) 10 ml INFILTRATI ONCE ONE Stop: 04/10/19 12:53 Docusate Sodium (Colace) 100 mg PO BID [facility] Last Admin: 04/10/19 09:21 Dose: Not Given Documented by: Enoxaparin Sodium (Lovenox) 30 mg SUB-Q QDAY [facility] Last Admin: 04/10/19 09:22 Dose: Not Given Documented by: Epoetin Conor (Procrit) 10,000 unit SUB-Q GOPI PRN PRN Reason: hemodialysis Heparin Sodium (Porcine) (Heparin 10,000 Units/10 Ml) 3,000 unit IV GOPI PRN PRN Reason: hemodialysis Hydralazine HCl (Apresoline) 5 mg IV Q6H PRN PRN Reason: Hypertension Sodium Chloride (Nacl 0.9%) 100 mls @ 999 mls/hr IV GOPI PRN PRN Reason: Hypotension Lidocaine (Xylocaine 1% Mpf 5 Ml) 5 ml INFILTRATI ONCE ONE Stop: 04/10/19 12:54 Methylprednisolone Acetate (Depo-Medrol) 40 mg INTRA-JUAN ONCE ONE Stop: 04/10/19 12:52 Metoprolol Tartrate (Lopressor) 25 mg PO BID [facility] Last Admin: 04/10/19 09:27 Dose: 25 mg Documented by: Nicotine (Habitrol) 7 mg TD QDAY [facility] Last Admin: 04/10/19 09:24 Dose: 7 mg Documented by: Ondansetron HCl (Zofran) 4 mg IV Q6H PRN PRN Reason: N/V unrelieved by Reglan Oxycodone/Acetaminophen (Percocet 5/325) 1 tab PO Q6H PRN PRN Reason: Pain, Moderate (4-6) Last Admin: 04/09/19 01:23 Dose: 1 tab Documented by: Oxycodone/Acetaminophen (Percocet 5/325) 2 tab PO Q6H PRN PRN Reason: Pain , Severe (7-10) Last Admin: 04/09/19 18:59 Dose: 2 tab Documented by: Pantoprazole Sodium (Protonix) 40 mg PO DAILY [facility] Last Admin: 04/10/19 09:29 Dose: 40 mg Documented by: Polyethylene Glycol (Miralax 3350) 17 gm PO QDAY [facility] Last Admin: 04/10/19 09:22 Dose: Not Given Documented by: Sodium Chloride (Sodium Chloride Flush Syringe 10 Ml) 10 ml IV BID [facility] Last Admin: 04/10/19 09:24 Dose: 10 ml Documented by: Sodium Chloride (Sodium Chloride Flush Syringe 10 Ml) 10 ml IV PRN PRN PRN Reason: LINE FLUSH Last Admin: 04/08/19 03:50 Dose: 10 ml Documented by: Physical Examination - Physical exam Narrative exam: left elbow - tender at olecranon process, no sign of infection good passive ROM, distal n/v intact plain xrays left elbow reviewed by me and show slight loss of olecranon process with peckle calcifications w/n soft tissues... Assessment and Plan left elbow pain, suspect inflammatory origin recommend - depomedrol + lidocaine + marcaine injection...
[2019-04-10] MEDS ORDERED: DEPO-Medrol INTRA-ARTI ONE (13:30)
[2019-04-10] MEDS ORDERED: MARCAINE 0.5% INFILTRATI ONE (13:30)
[2019-04-10] MEDS ORDERED: XYLOCAINE 1% MPF 5 mL INFILTRATI ONE (13:30)
[2019-04-10] MEDS: PERCOCET 5/325 PO PRN ×2 (13:42→21:22)
[2019-04-10 14:35] LABS: Hepatitis B Surface Antigen Non-Reactive (Negative); Hepatitis C Virus Antibody Non-Reactive (NonReactive)
--- NOTE | 2019-04-10 23:51 | Progress Note ---
Assessment and Plan LUE pain, muskuloskeletal vs suspect inflammatory origin - Ortho recommend - depomedrol + lidocaine + marcaine injection... 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 Subjective Date of service: 04/10/19 Interval history: Patient seen and examined No acute event o/n continue to c/o left arm pain One out of 4 blood Cx growing gm -ve rods Objective - Exam Narrative Exam: General appearance: Present: no acute distress, obese - EENT Eyes: PERRL, EOM intact ENT: hearing intact, clear oral mucosa Ears: bilateral: normal - Neck Neck: supple, normal ROM - Respiratory Respiratory effort: normal Respiratory: bilateral: CTA - Cardiovascular Rhythm: regular Heart Sounds: Present: S1 & S2. Absent: gallop, rub Extremities: pulses intact, No edema, normal color, Full ROM - Gastrointestinal General gastrointestinal: Present: soft, non-tender, non-distended, normal bowel sounds - Integumentary Integumentary: clear, warm, dry - Musculoskeletal Musculoskeletal: strength equal bilaterally, other (left arm tenderness) - Neurologic Neurologic: moves all extremities - Psychiatric Psychiatric: memory intact, appropriate mood/affect, intact judgment & insight - Constitutional Vitals: Vital Signs - 12hr 04/10/19 04/10/19 04/10/19 14:00 14:15 14:30 Temperature 98.0 F Pulse Rate 87 89 92 H Respiratory 18 Rate Blood Pressure 112/71 117/50 109/59 O2 Sat by Pulse Oximetry 04/10/19 04/10/19 04/10/19 14:45 15:00 15:15 Temperature Pulse Rate 90 92 H 87 Respiratory Rate Blood Pressure 117/67 102/45 107/63 O2 Sat by Pulse Oximetry 04/10/19 04/10/19 04/10/19 15:30 15:45 16:00 Temperature Pulse Rate 91 H 89 89 Respiratory Rate Blood Pressure 113/69 107/62 119/64 O2 Sat by Pulse Oximetry 04/10/19 04/10/19 04/10/19 16:15 16:50 16:53 Temperature 98.0 F 99.2 F 98.6 F Pulse Rate 88 85 Respiratory 18 20 Rate Blood Pressure 120/64 146/96 133/85 O2 Sat by Pulse 96 Oximetry 04/10/19 04/10/19 21:20 21:22 Temperature 98.7 F Pulse Rate 95 H Respiratory 20 18 Rate Blood Pressure 129/66 O2 Sat by Pulse 97 Oximetry - Labs CBC & Chem 7: 04/08/19 02:20 04/08/19 02:20
[2019-04-11] MEDS: MAXIPIME/NS 1 GM/100 ML 1 GM/100 ML BAG IV SCH ×2 (01:01→10:30)
[2019-04-11 03:28] LABS: Calcium 8.9 mg/dL (8.4-10.2)
[2019-04-11 06:09] LABS: Hemoglobin 8.5 gm/dl (10.1-14.3); Mean Corpuscular HGB Conc 31 % (30-34); Mean Corpuscular Volume 88 fl (79-97); Platelet Count 384 K/mm3 (140-440); Red Blood Count 3.08 M/mm3 (3.65-5.03); Red Cell Distribution Width 18.3 % (13.2-15.2)
[2019-04-11] MEDS: COLACE PO SCH ×2 (10:30→21:48)
[2019-04-11] MEDS: NORVASC PO SCH (10:30)
[2019-04-11] MEDS: LOPRESSOR PO SCH ×2 (10:30→21:47)
[2019-04-11] MEDS: PROTONIX PO SCH (10:31)
[2019-04-11] MEDS: HABITROL TD SCH (10:31)
[2019-04-11] MEDS: RENVELA PO SCH ×3 (10:32→17:25)
[2019-04-11] MEDS: SODIUM CHLORIDE FLUSH SYRINGE 10 ML IV SCH ×2 (10:32→21:47)
[2019-04-11] MEDS: LOVENOX SUB-Q SCH (10:51)
[2019-04-11] MEDS: MIRALAX 3350 PO SCH (10:51)
[2019-04-11] MEDS: PERCOCET 5/325 PO PRN ×2 (12:28→21:46)
--- NOTE | 2019-04-11 13:34 | Progress Note ---
Assessment and Plan 1. ESRD: Continue hemodialysis three times a week, MWF schedule. HD tomorrow. 2. FEN: On Sevelamer. Monitor lytes. 3. Anemia: Epogen with HD. 4. L elbow pain: Seen by Ortho. 5. Bacteremia. 6. Severe hyperparathyroidism: Parathyroid scan showed R parathyroid adenoma. Patient need to see Endocrine surgery / ENT for possible removal of the Adenoma. Subjective Date of service: 04/11/19 Interval history: Patient was seen and examined at the bedside. Doing ok. Elbow pain is better. Objective - Vital Signs Vital signs: Vital Signs - 12hr 04/11/19 04/11/19 04/11/19 05:30 10:00 10:30 Temperature 98.5 F Pulse Rate 83 91 H Respiratory 18 20 Rate Blood Pressure 111/76 142/87 Blood Pressure [Right] O2 Sat by Pulse 95 95 Oximetry 04/11/19 04/11/19 12:28 12:31 Temperature 98.3 F Pulse Rate 85 Respiratory 20 16 Rate Blood Pressure Blood Pressure 121/79 [Right] O2 Sat by Pulse Oximetry - General Appearance General appearance: well-developed, well-nourished, appears stated age, obese, other (no distress, R IJ tunnel catheter) EENT: ATNC, PERRL, mucous membranes moist, hearing intact, vision intact Neck: supple Respiratory: Present: Clear to Ascultation Cardiology: regular, S1S2, no murmurs Gastrointestinal: normoactive bowel sounds, no tenderness, no distended, obese Integumentary: no rash, warm and dry Neurologic: no focal deficit, no asterixis, alert and oriented x3 Musculoskeletal: other (no edema) Psychiatric: cooperative - Lab 04/11/19 05:54 04/11/19 02:43 Most recent lab results Calcium 8.9 mg/dL (8.4-10.2) D 04/11/19 02:43 Medications & Allergies - Medications Allergies/Adverse Reactions: Allergies No Known Allergies Allergy (Verified 02/16/19 09:53) Home Medications: Home Medications Medication Instructions Recorded Confirmed Last Taken Type Metoprolol [Lopressor TAB] 25 mg PO BID #60 tablet 02/10/19 04/08/19 03/01/19 Rx Ondansetron (Nf) [Zofran TAB] 8 mg PO Q8HR PRN #16 tablet 0504/08/19 03/01/19 Rx Pantoprazole [Protonix TAB] 40 mg PO DAILY 02/13/19 04/08/19 03/02/19 10:05 History amLODIPine [Norvasc] 10 mg PO DAILY 02/13/19 04/08/19 03/02/19 10:05 History Lidocaine [Aspercreme] 1 each TP DAILY #30 adh..patch 04/10/19 Unknown Rx Polyethylene Glycol 3350 17 gm PO AC #10 powd.pack 04/10/19 Unknown Rx [Powderlax] traMADol [Ultram] 50 mg PO Q8HR PRN #20 tablet 04/10/19 Unknown Rx Active Medications: Generic Name Dose Route Start Last Admin Trade Name Freq PRN Reason Stop Dose Admin Acetaminophen 650 mg 04/08/19 01:35 Tylenol PO Q4H PRN Pain MILD(1-3)/Fever >100.5/BROWN Amlodipine Besylate 10 mg 04/10/19 10:00 04/11/19 10:30 Norvasc PO 10 mg DAILY [facility] Administration Docusate Sodium 100 mg 04/08/19 22:00 04/11/19 10:30 Colace PO 100 mg BID [facility] Administration Enoxaparin Sodium 30 mg 04/08/19 10:00 04/11/19 10:51 Lovenox SUB-Q Not Given QDAY [facility] Epoetin Conor 10,000 unit 04/10/19 12:27 Procrit SUB-Q GOPI PRN hemodialysis Heparin Sodium (Porcine) 3,000 unit 04/10/19 12:27 Heparin 10,000 Units/10 Ml IV GOPI PRN hemodialysis Hydralazine HCl 5 mg 04/08/19 01:54 Apresoline IV Q6H PRN Hypertension Sodium Chloride 100 mls @ 999 mls/hr 04/10/19 12:27 Nacl 0.9% IV GOPI PRN Hypotension Cefepime HCl 1 gm in 100 mls @ 200 mls/hr 04/11/19 18:00 Maxipime/Ns 1 Gm/100 Ml IV QPM [facility] Protocol Metoprolol Tartrate 25 mg 04/09/19 22:00 04/11/19 10:30 Lopressor PO 25 mg BID [facility] Administration Nicotine 7 mg 04/09/19 22:00 04/11/19 10:31 Habitrol TD 7 mg QDAY [facility] Administration Ondansetron HCl 4 mg 04/09/19 14:45 Zofran IV Q6H PRN N/V unrelieved by Rosy Oxycodone/Acetaminophen 1 tab 04/08/19 12:00 04/09/19 01:23 Percocet 5/325 PO 1 tab Q6H PRN Administration Pain, Moderate (4-6) Oxycodone/Acetaminophen 2 tab 04/08/19 12:00 04/11/19 12:28 Percocet 5/325 PO 2 tab Q6H PRN Administration Pain , Severe (7-10) Pantoprazole Sodium 40 mg 04/10/19 10:00 04/11/19 10:31 Protonix PO 40 mg DAILY [facility] Administration Polyethylene Glycol 17 gm 04/09/19 15:00 04/11/19 10:51 Miralax 3350 PO Not Given QDAY [facility] Sevelamer Carbonate 2,400 mg 04/11/19 07:30 04/11/19 12:28 Renvela PO 2,400 mg AC [facility] Administration Sodium Chloride 10 ml 04/08/19 10:00 04/11/19 10:32 Sodium Chloride Flush Syringe 10 Ml IV 10 ml BID [facility] Administration Sodium Chloride 10 ml 04/08/19 01:35 04/08/19 03:50 Sodium Chloride Flush Syringe 10 Ml IV 10 ml PRN PRN Administration LINE FLUSH
--- NOTE | 2019-04-11 14:20 | Nuclear Medicine Report ---
PARATHYROID SCAN HISTORY: Hyperparathyroidism COMPARISON: None. TECHNIQUE: Following the intravenous administration of [id number], early and delayed anterior a nd oblique images of the neck and upper thorax were acquired. RADIOPHARMACEUTICAL: mCi of [id number] FINDINGS: EARLY IMAGING: There is focal increased activity at the inferior pole of the right thyroid lobe. Ther e is homogeneous distribution of the radiotracer throughout the remainder of the thyroid tissue. DELAYED IMAGING: There is focal persistent activity at the inferior pole of the right thyroid lobe. Additional Findings: None. IMPRESSION: Right inferior parathyroid adenoma Signer Name: Ronnie Hagen Jr, MD Signed: 04/11/2019 2:15 PM Workstation Name: [id number]
--- NOTE | 2019-04-11 17:19 | Progress Note ---
Assessment and Plan Assessment and plan: --Bacteremia, 1/4 blood cx positive, restart cefepime Follow sensitivities, repeat cultures, consider ID evaluation if needed --LUE pain, muskuloskeletal vs suspect inflammatory origin s/p depomedrol + lidocaine + marcaine injection... 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 History Interval history: Patient seen and examined medical records reviewed Patient feels slightly better, has 1/4 positive blood cultures Vital signs reviewed Hospitalist Physical - Constitutional Vitals: Temp Pulse Resp BP Pulse Ox 98.3 F 85 16 121/79 95 04/11/19 12:31 04/11/19 12:31 04/11/19 12:31 04/11/19 12:31 04/11/19 10:00 General appearance: Present: no acute distress, well-nourished, obese - EENT Eyes: Present: PERRL, EOM intact - Neck Neck: Present: supple, normal ROM - Respiratory Respiratory effort: normal Respiratory: bilateral: diminished, negative: rales, rhonchi, wheezing - Cardiovascular Rhythm: regular Heart Sounds: Present: S1 & S2 - Extremities Extremities: no ischemia, No edema - Abdominal General gastrointestinal: soft, non-tender, non-distended, normal bowel sounds - Integumentary Integumentary: Present: clear, warm - Psychiatric Psychiatric: appropriate mood/affect, cooperative - Neurologic Neurologic: CNII-XII intact, moves all extremities Results - Labs CBC & Chem 7: 04/11/19 05:54 04/11/19 02:43 Labs: Laboratory Last Values WBC 7.3 K/mm3 (4.5-11.0) 04/11/19 05:54 RBC 3.08 M/mm3 (3.65-5.03) L 04/11/19 05:54 Hgb 8.5 gm/dl (10.1-14.3) L 04/11/19 05:54 Hct 27.0 % (30.3-42.9) L 04/11/19 05:54 MCV 88 fl (79-97) 04/11/19 05:54 MCH 28 pg (28-32) 04/11/19 05:54 MCHC 31 % (30-34) 04/11/19 05:54 RDW 18.3 % (13.2-15.2) H 04/11/19 05:54 Plt Count 384 K/mm3 (140-440) 04/11/19 05:54 Lymph % (Auto) 11.6 % (13.4-35.0) L 04/08/19 02:20 [place] % (Auto) 6.6 % (0.0-7.3) 04/08/19 02:20 Eos % (Auto) 0.4 % (0.0-4.3) 04/08/19 02:20 Baso % (Auto) 0.4 % (0.0-1.8) 04/08/19 02:20 Lymph # 1.0 K/mm3 (1.2-5.4) L 04/08/19 02:20 [place] # 0.6 K/mm3 (0.0-0.8) 04/08/19 02:20 Eos # 0.0 K/mm3 (0.0-0.4) 04/08/19 02:20 Baso # 0.0 K/mm3 (0.0-0.1) 04/08/19 02:20 Seg Neutrophils % 81.0 % (40.0-70.0) H 04/08/19 02:20 Seg Neutrophils # 7.1 K/mm3 (1.8-7.7) 04/08/19 02:20 ESR 113 mm/Hr (0-20) 04/07/19 22:27 PT 13.0 Sec. (12.2-14.9) 04/07/19 19:49 INR 1.01 (0.87-1.13) 04/07/19 19:49 APTT 52.3 Sec. (24.2-36.6) H 04/07/19 19:49 Sodium 137 mmol/L (137-145) 04/11/19 02:43 Potassium 4.5 mmol/L (3.6-5.0) 04/11/19 02:43 Chloride 98.0 mmol/L (98-107) 04/11/19 02:43 Carbon Dioxide 23 mmol/L (22-30) 04/11/19 02:43 21 mmol/L 04/11/19 02:43 BUN 40 mg/dL (7-17) H 04/11/19 02:43 8.0 mg/dL (0.7-1.2) H 04/11/19 02:43 Estimated GFR 7 ml/min 04/11/19 02:43 5 % 04/11/19 02:43 Glucose 109 mg/dL (65-100) H 04/11/19 02:43 Lactic Acid 2.20 mmol/L (0.7-2.0) H* 04/08/19 16:49 Calcium 8.9 mg/dL (8.4-10.2) D 04/11/19 02:43 0.20 mg/dL (0.1-1.2) 04/07/19 19:49 AST 21 units/L (5-40) 04/07/19 19:49 ALT 16 units/L (7-56) 04/07/19 19:49 180 units/L (35-129) H 04/07/19 19:49 8.1 g/dL (6.3-8.2) 04/07/19 19:49 3.6 g/dL (3.9-5) L 04/07/19 19:49 0.8 % 04/07/19 19:49 Hepatitis A IgM Ab Non-reactive (NonReactive) 04/10/19 13:57 Hep Bs Antigen Non-reactive (Negative) 04/10/19 13:57 Hep B Core IgM Ab Non-reactive (NonReactive) 04/10/19 13:57 Non-reactive (NonReactive) 04/10/19 13:57 Active Medications - Current Medications Current Medications: Generic Name Dose Route Start Last Admin Trade Name Freq PRN Reason Stop Dose Admin Acetaminophen 650 mg 04/08/19 01:35 Tylenol PO Q4H PRN Pain MILD(1-3)/Fever >100.5/BROWN Amlodipine Besylate 10 mg 04/10/19 10:00 04/11/19 10:30 Norvasc PO 10 mg DAILY [facility]INCESS Administration Docusate Sodium 100 mg 04/08/19 22:00 04/11/19 10:30 Colace PO 100 mg BID PR[facility]ESS Administration Enoxaparin Sodium 30 mg 04/08/19 10:00 04/11/19 10:51 Lovenox SUB-Q Not Given QDAY [facility] Epoetin Conor 10,000 unit 04/10/19 12:27 Procrit SUB-Q GOPI PRN hemodialysis Heparin Sodium (Porcine) 3,000 unit 04/10/19 12:27 Heparin 10,000 Units/10 Ml IV GOPI PRN hemodialysis Hydralazine HCl 5 mg 04/08/19 01:54 Apresoline IV Q6H PRN Hypertension Sodium Chloride 100 mls @ 999 mls/hr 04/10/19 12:27 Nacl 0.9% IV GOPI PRN Hypotension Cefepime HCl 1 gm in 100 mls @ 200 mls/hr 04/11/19 18:00 Maxipime/Ns 1 Gm/100 Ml IV QPM [facility] Protocol Metoprolol Tartrate 25 mg 04/09/19 22:00 04/11/19 10:30 Lopressor PO 25 mg BID PRINCESS Administration Nicotine 7 mg 04/09/19 22:00 04/11/19 10:31 Habitrol TD 7 mg QDAY PRINCESS Administration Ondansetron HCl 4 mg 04/09/19 14:45 Zofran IV Q6H PRN N/V unrelieved by Rosy Oxycodone/Acetaminophen 1 tab 04/08/19 12:00 04/09/19 01:23 Percocet 5/325 PO 1 tab Q6H PRN Administration Pain, Moderate (4-6) Oxycodone/Acetaminophen 2 tab 04/08/19 12:00 04/11/19 12:28 Percocet 5/325 PO 2 tab Q6H PRN Administration Pain , Severe (7-10) Pantoprazole Sodium 40 mg 04/10/19 10:00 04/11/19 10:31 Protonix PO 40 mg DAILY PRINCESS Administration Polyethylene Glycol 17 gm 04/09/19 15:00 04/11/19 10:51 Miralax 3350 PO Not Given QDAY PR[facility] Sevelamer Carbonate 2,400 mg 04/11/19 07:30 04/11/19 12:28 Renvela PO 2,400 mg AC PRINCESS Administration Sodium Chloride 10 ml 04/08/19 10:00 04/11/19 10:32 Sodium Chloride Flush Syringe 10 Ml IV 10 ml BID PRINCESS Administration Sodium Chloride 10 ml 04/08/19 01:35 04/08/19 03:50 Sodium Chloride Flush Syringe 10 Ml IV 10 ml PRN PRN Administration LINE FLUSH Nutrition/Malnutrition Assess - Dietary Evaluation Nutrition/Malnutrition Findings: Nutrition Notes Start: 04/08/19 08:54 Freq: Status: Active Protocol: Document 04/10/19 14:24 RM (Rec: 04/10/19 14:27 RM [id number]) Nutrition Notes Initial or Follow up Brief Note Current Diagnosis CKD (stage V CKD),Hypertension Other Pertinent Diagnosis on HD, LUE pain Current Diet Renal Labs/Tests Reviewed Pertinent Medications Solu-Medrol Height 5 ft 9 in Weight 121.7 kg [place] Body Weight (kg) 65.90 BMI 39.6 Subjective/Other Information Pt stated that her appetite is okay and that she eats most of her meals. Denied chewing or swallowing difficulty. Burn Absent Trauma Absent Nutrition Intervention Revisit per MD consult or patient Sign Off request:
[2019-04-11] MEDS ORDERED: MAXIPIME/NS 1 GM/100 ML 1 GM/100 ML BAG IV SCH (18:00)
[2019-04-12] MEDS: RENVELA PO SCH ×4 (07:52→17:17)
--- NOTE | 2019-04-12 10:10 | Progress Note ---
Assessment and Plan 1. ESRD: Continue hemodialysis three times a week, MWF schedule. 2. FEN: On Sevelamer. Monitor lytes. 3. Anemia: Epogen with HD. 4. L elbow pain: Seen by Ortho. 5. Bacteremia: Follow cultures. 6. Severe hyperparathyroidism: Parathyroid scan showed R parathyroid adenoma. Patient was informed that she need to see Endocrine surgery / ENT for possible removal of the Adenoma. Subjective Date of service: 04/12/19 Interval history: Patient was seen and examined at the bedside while on Hemodialysis. Doing ok. Objective - Vital Signs Vital signs: Vital Signs - 12hr 04/11/19 04/12/19 22:46 05:10 Temperature 98.7 F Pulse Rate 82 Respiratory 18 16 Rate Blood Pressure 111/71 O2 Sat by Pulse 96 Oximetry - General Appearance General appearance: well-developed, well-nourished, appears stated age, obese, other (no distress, R IJ tunnel catheter) EENT: ATNC, PERRL, mucous membranes moist, hearing intact, vision intact Neck: supple Respiratory: Present: Clear to Ascultation Cardiology: regular, S1S2, no murmurs Gastrointestinal: normoactive bowel sounds, no tenderness, no distended, obese Integumentary: no rash, warm and dry Neurologic: no focal deficit, no asterixis, alert and oriented x3 Musculoskeletal: other (no edema) Psychiatric: cooperative - Lab 04/11/19 05:54 04/11/19 02:43 Most recent lab results Calcium 8.9 mg/dL (8.4-10.2) D 04/11/19 02:43 Medications & Allergies - Medications Allergies/Adverse Reactions: Allergies No Known Allergies Allergy (Verified 02/16/19 09:53) Home Medications: Home Medications Medication Instructions Recorded Confirmed Last Taken Type Metoprolol [Lopressor TAB] 25 mg PO BID #60 tablet 02/10/19 04/08/19 03/01/19 Rx Ondansetron (Nf) [Zofran TAB] 8 mg PO Q8HR PRN #16 tablet 02/10/19 04/08/19 03/01/19 Rx Pantoprazole [Protonix TAB] 40 mg PO DAILY 02/13/19 04/08/19 03/02/19 10:05 History amLODIPine [Norvasc] 10 mg PO DAILY 02/13/19 04/08/19 03/02/19 10:05 History Lidocaine [Aspercreme] 1 each TP DAILY #30 adh..patch 04/10/19 Unknown Rx Polyethylene Glycol 3350 17 gm PO AC #10 powd.pack 04/10/19 Unknown Rx [Powderlax] traMADol [Ultram] 50 mg PO Q8HR PRN #20 tablet 04/10/19 Unknown Rx Active Medications: Generic Name Dose Route Start Last Admin Trade Name Freq PRN Reason Stop Dose Admin Acetaminophen 650 mg 04/08/19 01:35 Tylenol PO Q4H PRN Pain MILD(1-3)/Fever >100.5/BROWN Amlodipine Besylate 10 mg 04/10/19 10:00 04/11/19 10:30 Norvasc PO 10 mg DAILY [facility] Administration Docusate Sodium 100 mg 04/08/19 22:00 04/11/19 21:48 Colace PO Not Given BID [facility] Enoxaparin Sodium 30 mg 04/08/19 10:00 04/11/19 10:51 Lovenox SUB-Q Not Given QDAY [facility] Epoetin Conor 10,000 unit 04/10/19 12:27 Procrit SUB-Q GOPI PRN hemodialysis Heparin Sodium (Porcine) 3,000 unit 04/10/19 12:27 Heparin 10,000 Units/10 Ml IV GOPI PRN hemodialysis Hydralazine HCl 5 mg 04/08/19 01:54 Apresoline IV Q6H PRN Hypertension Sodium Chloride 100 mls @ 999 mls/hr 04/10/19 12:27 Nacl 0.9% IV GOPI PRN Hypotension Cefepime HCl 1 gm in 100 mls @ 200 mls/hr 04/11/19 18:00 04/11/19 17:25 Maxipime/Ns 1 Gm/100 Ml IV 200 mls/hr QPM [facility]INCESS Administration Protocol Metoprolol Tartrate 25 mg 04/09/19 22:00 04/11/19 21:47 Lopressor PO 25 mg BID PRINCESS Administration Nicotine 7 mg 04/09/19 22:00 04/11/19 10:31 Habitrol TD 7 mg QDAY [facility] Administration Ondansetron HCl 4 mg 04/09/19 14:45 04/11/19 20:15 Zofran IV 4 mg Q6H PRN Administration N/V unrelieved by Rosy Oxycodone/Acetaminophen 1 tab 04/08/19 12:00 04/09/19 01:23 Percocet 5/325 PO 1 tab Q6H PRN Administration Pain, Moderate (4-6) Oxycodone/Acetaminophen 2 tab 04/08/19 12:00 04/11/19 21:46 Percocet 5/325 PO 2 tab Q6H PRN Administration Pain , Severe (7-10) Pantoprazole Sodium 40 mg 04/10/19 10:00 04/11/19 10:31 Protonix PO 40 mg DAILY PRINCESS Administration Polyethylene Glycol 17 gm 04/09/19 15:00 04/11/19 10:51 Miralax 3350 PO Not Given QDAY PRINC[facility] Sevelamer Carbonate 2,400 mg 04/11/19 07:30 04/12/19 07:52 Renvela PO 2,400 mg AC PRINCESS Administration Sodium Chloride 10 ml 04/08/19 10:00 04/11/19 21:47 Sodium Chloride Flush Syringe 10 Ml IV 10 ml BID PRINCESS Administration Sodium Chloride 10 ml 04/08/19 01:35 04/08/19 03:50 Sodium Chloride Flush Syringe 10 Ml IV 10 ml PRN PRN Administration LINE FLUSH
--- NOTE | 2019-04-12 10:19 | Progress Note ---
Assessment and Plan Assessment and plan: --Bacteremia, 1/ blood cx positive, restart cefepime Follow sensitivities, repeat cultures, ID evaluation --LUE pain, muskuloskeletal vs suspect inflammatory origin s/p depomedrol + lidocaine + marcaine injection... 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, legal counsel when clinically stable Brief History: The patient is a 43 YO female with history significant for Obesity, Hypertension, HLD, Anemia, RICHIE, ESRD on hemodialysis (MWF) and Secondary hyperparathyroidism who presented to [facility] ED with c/o L elbow pain. History Interval history: Patient seen and examined medical records reviewed Patient states that No new complaints Scheduled for hemodialysis today Vital signs reviewed Hospitalist Physical - Constitutional Vitals: Temp Pulse Resp BP Pulse Ox 98.7 F 82 16 111/71 96 04/12/19 05:10 04/12/19 05:10 04/12/19 05:10 04/12/19 05:10 04/12/19 05:10 General appearance: Present: no acute distress, well-nourished, obese (morbid obesity) - EENT Eyes: Present: PERRL, EOM intact - Neck Neck: Present: supple, normal ROM - Respiratory Respiratory effort: normal Respiratory: bilateral: diminished, negative: rales, rhonchi, wheezing - Cardiovascular Rhythm: regular Heart Sounds: Present: S1 & S2 - Extremities Extremities: no ischemia, pulses intact - Abdominal General gastrointestinal: soft, non-tender, non-distended, normal bowel sounds - Integumentary Integumentary: Present: clear, warm - Psychiatric Psychiatric: appropriate mood/affect, cooperative - Neurologic Neurologic: moves all extremities Results - Labs CBC & Chem 7: 04/11/19 05:54 04/11/19 02:43 Labs: Laboratory Last Values WBC 7.3 K/mm3 (4.5-11.0) 04/11/19 05:54 RBC 3.08 M/mm3 (3.65-5.03) L 04/11/19 05:54 Hgb 8.5 gm/dl (10.1-14.3) L 04/11/19 05:54 Hct 27.0 % (30.3-42.9) L 04/11/19 05:54 MCV 88 fl (79-97) 04/11/19 05:54 MCH 28 pg (28-32) 04/11/19 05:54 MCHC 31 % (30-34) 04/11/19 05:54 RDW 18.3 % (13.2-15.2) H 04/11/19 05:54 Plt Count 384 K/mm3 (140-440) 04/11/19 05:54 Lymph % (Auto) 11.6 % (13.4-35.0) L 04/08/19 02:20 [place] % (Auto) 6.6 % (0.0-7.3) 04/08/19 02:20 Eos % (Auto) 0.4 % (0.0-4.3) 04/08/19 02:20 Baso % (Auto) 0.4 % (0.0-1.8) 04/08/19 02:20 Lymph # 1.0 K/mm3 (1.2-5.4) L 04/08/19 02:20 [place] # 0.6 K/mm3 (0.0-0.8) 04/08/19 02:20 Eos # 0.0 K/mm3 (0.0-0.4) 04/08/19 02:20 Baso # 0.0 K/mm3 (0.0-0.1) 04/08/19 02:20 Seg Neutrophils % 81.0 % (40.0-70.0) H 04/08/19 02:20 Seg Neutrophils # 7.1 K/mm3 (1.8-7.7) 04/08/19 02:20 ESR 113 mm/Hr (0-20) 04/07/19 22:27 PT 13.0 Sec. (12.2-14.9) 04/07/19 19:49 INR 1.01 (0.87-1.13) 04/07/19 19:49 APTT 52.3 Sec. (24.2-36.6) H 04/07/19 19:49 Sodium 137 mmol/L (137-145) 04/11/19 02:43 Potassium 4.5 mmol/L (3.6-5.0) 04/11/19 02:43 Chloride 98.0 mmol/L (98-107) 04/11/19 02:43 Carbon Dioxide 23 mmol/L (22-30) 04/11/19 02:43 21 mmol/L 04/11/19 02:43 BUN 40 mg/dL (7-17) H 04/11/19 02:43 8.0 mg/dL (0.7-1.2) H 04/11/19 02:43 Estimated GFR 7 ml/min 04/11/19 02:43 5 % 04/11/19 02:43 Glucose 109 mg/dL (65-100) H 04/11/19 02:43 Lactic Acid 2.20 mmol/L (0.7-2.0) H* 04/08/19 16:49 Calcium 8.9 mg/dL (8.4-10.2) D 04/11/19 02:43 0.20 mg/dL (0.1-1.2) 04/07/19 19:49 AST 21 units/L (5-40) 04/07/19 19:49 ALT 16 units/L (7-56) 04/07/19 19:49 180 units/L (35-129) H 04/07/19 19:49 8.1 g/dL (6.3-8.2) 04/07/19 19:49 3.6 g/dL (3.9-5) L 04/07/19 19:49 0.8 % 04/07/19 19:49 Hepatitis A IgM Ab Non-reactive (NonReactive) 04/10/19 13:57 Hep Bs Antigen Non-reactive (Negative) 04/10/19 13:57 Hep B Core IgM Ab Non-reactive (NonReactive) 04/10/19 13:57 Non-reactive (NonReactive) 04/10/19 13:57 Active Medications - Current Medications Current Medications: Generic Name Dose Route Start Last Admin Trade Name Freq PRN Reason Stop Dose Admin Acetaminophen 650 mg 04/08/19 01:35 Tylenol PO Q4H PRN Pain MILD(1-3)/Fever >100.5/BROWN Amlodipine Besylate 10 mg 04/10/19 10:00 04/11/19 10:30 Norvasc PO 10 mg DAILY [facility]ESS Administration Docusate Sodium 100 mg 04/08/19 22:00 04/11/19 21:48 Colace PO Not Given BID [facility] Enoxaparin Sodium 30 mg 04/08/19 10:00 04/11/19 10:51 Lovenox SUB-Q Not Given QDAY [facility] Epoetin Conor 10,000 unit 04/10/19 12:27 Procrit SUB-Q GOPI PRN hemodialysis Heparin Sodium (Porcine) 3,000 unit 04/10/19 12:27 Heparin 10,000 Units/10 Ml IV GOPI PRN hemodialysis Hydralazine HCl 5 mg 04/08/19 01:54 Apresoline IV Q6H PRN Hypertension Sodium Chloride 100 mls @ 999 mls/hr 04/10/19 12:27 Nacl 0.9% IV GOPI PRN Hypotension Cefepime HCl 1 gm in 100 mls @ 200 mls/hr 04/11/19 18:00 04/11/19 17:25 Maxipime/Ns 1 Gm/100 Ml IV 200 mls/hr QPM [facility] Administration Protocol Metoprolol Tartrate 25 mg 04/09/19 22:00 04/11/19 21:47 Lopressor PO 25 mg BID PRINCESS Administration Nicotine 7 mg 04/09/19 22:00 04/11/19 10:31 Habitrol TD 7 mg QDAY [facility] Administration Ondansetron HCl 4 mg 04/09/19 14:45 04/11/19 20:15 Zofran IV 4 mg Q6H PRN Administration N/V unrelieved by Regsunitha Oxycodone/Acetaminophen 1 tab 04/08/19 12:00 04/09/19 01:23 Percocet 5/325 PO 1 tab Q6H PRN Administration Pain, Moderate (4-6) Oxycodone/Acetaminophen 2 tab 04/08/19 12:00 04/11/19 21:46 Percocet 5/325 PO 2 tab Q6H PRN Administration Pain , Severe (7-10) Pantoprazole Sodium 40 mg 04/10/19 10:00 04/11/19 10:31 Protonix PO 40 mg DAILY PRINCESS Administration Polyethylene Glycol 17 gm 04/09/19 15:00 04/11/19 10:51 Miralax 3350 PO Not Given QDAY [facility] Sevelamer Carbonate 2,400 mg 04/11/19 07:30 04/12/19 07:52 Renvela PO 2,400 mg AC [facility] Administration Sodium Chloride 10 ml 04/08/19 10:00 04/11/19 21:47 Sodium Chloride Flush Syringe 10 Ml IV 10 ml BID PRINCESS Administration Sodium Chloride 10 ml 04/08/19 01:35 04/08/19 03:50 Sodium Chloride Flush Syringe 10 Ml IV 10 ml PRN PRN Administration LINE FLUSH Nutrition/Malnutrition Assess - Dietary Evaluation Nutrition/Malnutrition Findings: Nutrition Notes Start: 04/08/19 08:54 Freq: Status: Active Protocol: Document 04/10/19 14:24 RM (Rec: 04/10/19 14:27 RM [email or web address]) Nutrition Notes Initial or Follow up Brief Note Current Diagnosis CKD (stage V CKD),Hypertension Other Pertinent Diagnosis on HD, LUE pain Current Diet Renal Labs/Tests Reviewed Pertinent Medications Solu-Medrol Height 5 ft 9 in Weight 121.7 kg [place] Body Weight (kg) 65.90 BMI 39.6 Subjective/Other Information Pt stated that her appetite is okay and that she eats most of her meals. Denied chewing or swallowing difficulty. Burn Absent Trauma Absent Nutrition Intervention Revisit per MD consult or patient Sign Off request:
--- NOTE | 2019-04-12 13:12 | Consultation ---
History of Present Illness - Reason for Consult Consult date: 04/12/19 Leukocytosis - History of Present Illness 43-year-old female with past medical history ESRD on HD, obesity, HTN initially presented to the hospital with left arm pain. She recently underwent fistula placement on the affected arm 03/02/2019 from which she was recovering well. She notes that she fell asleep on the affected arm and woke up in pain. She denies any fevers, sweats, chills, or other any systemic infective symptoms. She denies surrounding redness nor any purulent drainage. She has been afebrile since admission, initially with a leukocytosis which has since resolved. Multiple blood cultures have been negative, one recent one with 1/4 positive for gram-positive rods. CT of the arm without acute abnormality, x-ray of the elbow without acute abnormality. She is currently receiving cefepime. Past History Past Medical History: arthritis, dialysis, ESRD, hypertension, other (morbid obesity, sleep apnea) Past Surgical History: cholecystectomy, , hernia repair, Other (left troy creation, left brachiocephalic creation, ) Social history: no significant social history Medications and Allergies Allergies Allergy/AdvReac Type Severity Reaction Status Date / Time No Known Allergies Allergy Verified 02/16/19 09:53 Home Medications Medication Instructions Recorded Confirmed Last Taken Type Metoprolol [Lopressor TAB] 25 mg PO BID #60 tablet 02/10/19 04/08/19 03/01/19 Rx Ondansetron (Nf) [Zofran TAB] 8 mg PO Q8HR PRN #16 tablet 02/10/19 04/08/19 03/01/19 Rx Pantoprazole [Protonix TAB] 40 mg PO DAILY 02/13/19 04/08/19 03/02/19 10:05 History amLODIPine [Norvasc] 10 mg PO DAILY 02/13/19 04/08/19 03/02/19 10:05 History Lidocaine [Aspercreme] 1 each TP DAILY #30 adh..patch 04/10/19 Unknown Rx Polyethylene Glycol 3350 17 gm PO AC #10 powd.pack 04/10/19 Unknown Rx [Powderlax] traMADol [Ultram] 50 mg PO Q8HR PRN #20 tablet 04/10/19 Unknown Rx Active Meds: Active Medications Acetaminophen (Tylenol) 650 mg PO Q4H PRN PRN Reason: Pain MILD(1-3)/Fever >100.5/BROWN Amlodipine Besylate (Norvasc) 10 mg PO DAILY REPLACED BY [facility] Last Admin: 04/11/19 10:30 Dose: 10 mg Documented by: Docusate Sodium (Colace) 100 mg PO BID REPLACED BY [facility] Last Admin: 04/11/19 21:48 Dose: Not Given Documented by: Enoxaparin Sodium (Lovenox) 30 mg SUB-Q QDAY REPLACED BY [facility] Last Admin: 04/11/19 10:51 Dose: Not Given Documented by: Epoetin Conor (Procrit) 10,000 unit SUB-Q GOPI PRN PRN Reason: hemodialysis Heparin Sodium (Porcine) (Heparin 10,000 Units/10 Ml) 3,000 unit IV GOPI PRN PRN Reason: hemodialysis Hydralazine HCl (Apresoline) 5 mg IV Q6H PRN PRN Reason: Hypertension Sodium Chloride (Nacl 0.9%) 100 mls @ 999 mls/hr IV GOPI PRN PRN Reason: Hypotension Cefepime HCl (Maxipime/Ns 1 Gm/100 Ml) 1 gm in 100 mls @ 200 mls/hr IV QPM REPLACED BY [facility]; Protocol Last Admin: 04/11/19 17:25 Dose: 200 mls/hr Documented by: Metoprolol Tartrate (Lopressor) 25 mg PO BID REPLACED BY [facility] Last Admin: 04/11/19 21:47 Dose: 25 mg Documented by: Nicotine (Habitrol) 7 mg TD QDAY REPLACED BY [facility] Last Admin: 04/11/19 10:31 Dose: 7 mg Documented by: Ondansetron HCl (Zofran) 4 mg IV Q6H PRN PRN Reason: N/V unrelieved by Reglan Last Admin: 04/11/19 20:15 Dose: 4 mg Documented by: Oxycodone/Acetaminophen (Percocet 5/325) 1 tab PO Q6H PRN PRN Reason: Pain, Moderate (4-6) Last Admin: 04/09/19 01:23 Dose: 1 tab Documented by: Oxycodone/Acetaminophen (Percocet 5/325) 2 tab PO Q6H PRN PRN Reason: Pain , Severe (7-10) Last Admin: 04/11/19 21:46 Dose: 2 tab Documented by: Pantoprazole Sodium (Protonix) 40 mg PO DAILY REPLACED BY [facility] Last Admin: 04/11/19 10:31 Dose: 40 mg Documented by: Polyethylene Glycol (Miralax 3350) 17 gm PO QDAY REPLACED BY [facility] Last Admin: 04/11/19 10:51 Dose: Not Given Documented by: Sevelamer Carbonate (Renvela) 2,400 mg PO AC REPLACED BY [facility] Last Admin: 04/12/19 12:25 Dose: Not Given Documented by: Sodium Chloride (Sodium Chloride Flush Syringe 10 Ml) 10 ml IV BID REPLACED BY [facility] Last Admin: 04/11/19 21:47 Dose: 10 ml Documented by: Sodium Chloride (Sodium Chloride Flush Syringe 10 Ml) 10 ml IV PRN PRN PRN Reason: LINE FLUSH Last Admin: 04/08/19 03:50 Dose: 10 ml Documented by: Review of Systems Constitutional: no weight loss, no fever, no chills, no sweats Ears, nose, mouth and throat: no tinnitis, no decreased hearing, no sore throat Cardiovascular: no chest pain, no palpitations, no edema Respiratory: no cough, no shortness of breath, no dyspnea on exertion, no wheezing Gastrointestinal: no abdominal pain, no nausea, no vomiting, no diarrhea Musculoskeletal: arthritis, no shooting arm pain, no low back pain, no hot join ts Integumentary: no rash, no pruritis, no redness Neurological: no syncope, no vertigo, no headaches Psychiatric: no anxiety, no change in sleep habits, no insomnia Endocrine: no cold intolerance, no heat intolerance, no excessive thirst Hematologic/Lymphatic: no easy bruising, no lymphadenopathy Allergic/Immunologic: no urticaria, no wheezing Physical Examination - Physical Exam Narrative exam: Constitutional: awake, no distress, following commands Head, Ears, Nose: Normocephalic, atraumatic. External ears, nose normal Eyes: Conjunctivae/corneas clear. No icterus. No ptosis. Neck: Supple, no meningeal signs Oral: fair dentition, moist mucous membranes Cardiovascular: S1, S2 normal. Normal rhythm Respiratory: Good air entry, clear to auscultation bilaterally GI: Soft, non-tender; bowel sounds normal. No peritoneal signs Musculoskeletal: No pedal edema, L elbow without acute abnormality. Skin: No rash or abscess Hem/Lymphatic: No palpable cervical or supraclavicular nodes. No lymphangitis Psych: no agitation Neurological: Moves all extremities, no focal defects - Constitutional Vitals: Vital Signs Temp Pulse Resp BP Pulse Ox 97.8 F 73 16 126/71 96 04/12/19 10:55 04/12/19 12:30 04/12/19 10:55 04/12/19 12:30 04/12/19 05:10 Temperature -Last 24 Hours Temperature 97.8 F Temperature 98.7 F Temperature 98.4 F Temperature 97.9 F Results - Labs CBC & Chem 7: 04/11/19 05:54 04/11/19 02:43 Assessment and Plan Cultures: 04/07: No growth 04/08: 1/4 bottles positive rods 04/11: No growth 43-year-old female with past medical history ESRD on HD, obesity, HTN 1) bacteremia - gram-positive rods are often contaminants and blood cultures, especially with 1 out of 4 being positive. She denies any systemic infective symptoms and her acidosis has resolved with hydration I would be most likely to consider this a contamination. As such I will stop antibiotics the present time and monitor the patient 2) leukocytosis - this has resolved with hydration. Given her lactic acidosis, and concurrent drop in hemoglobin I think this is most likely to volume depletion 3) lactic acidosis - ongoing 4) ESRD on HD - status post recent AV fistula creation Recommendations: Stop IV cefepime Continue to monitor Daily CBC with differential Follow lactic acid Follow cultures for finalization Thank you for involving us in the care of Mrs. Pace, we'll continue to follow along with you. MD Jagjit Izquierdo [facility] C: [phone] O: [phone] F: [phone]
[2019-04-12] MEDS: LOVENOX SUB-Q SCH (14:21)
[2019-04-12] MEDS: COLACE PO SCH ×2 (14:30→21:49)
[2019-04-12] MEDS: MIRALAX 3350 PO SCH (14:31)
[2019-04-12] MEDS: PROTONIX PO SCH (14:31)
[2019-04-12] MEDS: LOPRESSOR PO SCH ×2 (14:33→21:48)
[2019-04-12] MEDS: NORVASC PO SCH (14:33)
--- NOTE | 2019-04-12 14:47 | Progress Note ---
Assessment and Plan doing well with left upper extremity continue observation Subjective Date of service: 04/12/19 Interval history: states left elbow feeling better after shot, much less pain... Objective Vital signs: Vital Signs - 12hr 04/12/19 04/12/19 04/12/19 05:10 09:30 09:50 Temperature 98.7 F Pulse Rate 82 84 81 Respiratory 16 Rate Blood Pressure 111/71 118/72 106/72 O2 Sat by Pulse 96 Oximetry 04/12/19 04/12/19 04/12/19 10:00 10:15 10:30 Temperature Pulse Rate 80 81 74 Respiratory Rate Blood Pressure 110/60 106/72 110/63 O2 Sat by Pulse Oximetry 04/12/19 04/12/19 04/12/19 10:45 10:55 11:00 Temperature 97.8 F Pulse Rate 75 96 H 94 H Respiratory 16 Rate Blood Pressure 101/65 158/103 162/87 O2 Sat by Pulse Oximetry 04/12/19 04/12/19 04/12/19 11:15 11:30 11:45 Temperature Pulse Rate 80 71 80 Respiratory Rate Blood Pressure 125/73 120/76 115/66 O2 Sat by Pulse Oximetry 04/12/19 04/12/19 04/12/19 12:00 12:15 12:30 Temperature Pulse Rate 71 71 73 Respiratory Rate Blood Pressure 120/73 118/73 126/71 O2 Sat by Pulse Oximetry 04/12/19 04/12/19 12:45 14:33 Temperature Pulse Rate 75 82 Respiratory Rate Blood Pressure 112/75 136/70 O2 Sat by Pulse Oximetry Narrative Exam: left elbow - good active ROM, less tenderness on palpation - Labs CBC & BMP: 04/11/19 05:54 04/11/19 02:43
[2019-04-12] MEDS: HABITROL TD SCH (15:05)
[2019-04-12] MEDS: SODIUM CHLORIDE FLUSH SYRINGE 10 ML IV SCH ×2 (15:05→21:48)
[2019-04-12] MEDS: PERCOCET 5/325 PO PRN ×2 (15:05→15:10)
[2019-04-12] MEDS ORDERED: NACL 0.9 (PRIMING MACHINE ONLY DIALYSIS) MC ONE (17:42)
[2019-04-13 07:28] LABS: Basophils # (Auto) 0.1 K/mm3 (0.0-0.1); Basophils % (Auto) 0.8 % (0.0-1.8); Eosinophils # (Auto) 0.1 K/mm3 (0.0-0.4); Eosinophils % (Auto) 1.5 % (0.0-4.3); Hematocrit 28.6 % (30.3-42.9); Hemoglobin 8.8 gm/dl (10.1-14.3); Lymphocytes # (Auto) 1.5 K/mm3 (1.2-5.4); Mean Corpuscular HGB Conc 31 % (30-34); Mean Corpuscular Volume 88 fl (79-97); Monocytes # (Auto) 0.6 K/mm3 (0.0-0.8); Monocytes % (Auto) 8.1 % (0.0-7.3); Platelet Count 395 K/mm3 (140-440); Red Blood Count 3.26 M/mm3 (3.65-5.03); Red Cell Distribution Width 18.5 % (13.2-15.2)
[2019-04-13] MEDS: RENVELA PO SCH (09:17)
[2019-04-13] MEDS: LOVENOX SUB-Q SCH ×2 (09:17→09:23)
[2019-04-13] MEDS: COLACE PO SCH ×2 (09:18→09:23)
[2019-04-13] MEDS: LOPRESSOR PO SCH (09:18)
[2019-04-13] MEDS: NORVASC PO SCH (09:18)
[2019-04-13] MEDS: PROTONIX PO SCH (09:18)
[2019-04-13] MEDS: MIRALAX 3350 PO SCH ×2 (09:18→09:24)
[2019-04-13] MEDS: SODIUM CHLORIDE FLUSH SYRINGE 10 ML IV SCH (09:19)
--- NOTE | 2019-04-13 09:23 | Progress Note ---
Assessment and Plan Cultures: 04/07: No growth 04/08: 1/4 bottles positive rods 04/11: No growth 43-year-old female with past medical history ESRD on HD, obesity, HTN 1) bacteremia - gram-positive rods are often contaminants and blood cultures, especially with 1 out of 4 being positive. She denies any systemic infective symptoms and her acidosis has resolved with hydration I would be most likely to consider this a contamination. As such I will stop antibiotics the present time and monitor the patient 2) leukocytosis - this has resolved with hydration. Given her lactic acidosis, and concurrent drop in hemoglobin I think this is most likely to volume depletion 3) lactic acidosis - ongoing 4) ESRD on HD - status post recent AV fistula creation Recommendations: Continue to monitor off antibiotics Daily CBC with differential Follow lactic acid Follow cultures for finalization [facility] M: [phone] O:[phone] Subjective Date of service: 04/13/19 Interval history: Patient seen and examined. Left arm pain resolved. Reports generalized weakness. No fever. Objective - Exam Narrative Exam: Constitutional: Awake. Alert. Generalized weakness Head, Ears, Nose: Normocephalic, atraumatic. External ears, nose normal Eyes: Conjunctivae/corneas clear. No icterus. No ptosis. Neck: Supple, no meningeal signs Oral: fair dentition, moist mucous membranes Cardiovascular: S1, S2 normal. Normal rhythm Respiratory: Good air entry, clear to auscultation bilaterally GI: Soft, non-tender; bowel sounds normal. No peritoneal signs Musculoskeletal: No pedal edema, L elbow without acute abnormality. Left AV fistula no thrill Skin: No rash or abscess Hem/Lymphatic: No palpable cervical or supraclavicular nodes. No lymphangitis Psych: no agitation Neurological: Moves all extremities, no focal defects - Constitutional Vitals: Vital Signs Temp Pulse Resp BP Pulse Ox 98.4 F 76 18 126/75 95 04/13/19 05:49 04/13/19 05:49 04/13/19 05:49 04/13/19 05:49 04/13/19 05:49 Temperature -Last 24 Hours Temperature 98.4 F Temperature 98.3 F Temperature 98.6 F Temperature 97.8 F - Labs CBC & Chem 7: 04/13/19 07:17 04/11/19 02:43 Labs: Abnormal lab results 04/12/19 04/12/19 04/13/19 Range/Units 17:58 20:16 07:17 RBC 3.26 L (3.65-5.03) M/mm3 Hgb 8.8 L (10.1-14.3) gm/dl Hct 28.6 L (30.3-42.9) % MCH 27 L (28-32) pg RDW 18.5 H (13.2-15.2) % [place] % (Auto) 8.1 H (0.0-7.3) % Seg Neutrophils % 70.6 H (40.0-70.0) % Lactic Acid 3.60 H* 2.50 H* (0.7-2.0) mmol/L 04/13/19 Range/Units 07:17 RBC (3.65-5.03) M/mm3 Hgb (10.1-14.3) gm/dl Hct (30.3-42.9) % MCH (28-32) pg RDW (13.2-15.2) % [place] % (Auto) (0.0-7.3) % Seg Neutrophils % (40.0-70.0) % Lactic Acid 2.60 H* (0.7-2.0) mmol/L
--- NOTE | 2019-04-13 09:25 | Progress Note ---
Assessment and Plan 1. ESRD: Continue hemodialysis three times a week, MWF schedule. 2. FEN: On Sevelamer. Monitor lytes. 3. Anemia: Epogen with HD. 4. L elbow pain: Seen by Ortho. 5. Bacteremia: Followed by ID. 6. Severe hyperparathyroidism: Parathyroid scan showed R parathyroid adenoma. Patient was informed that she need to see Endocrine surgery / ENT for possible removal of the Adenoma. Subjective Date of service: 04/13/19 Interval history: Patient was seen and examined at the bedside. Doing ok. Objective - Vital Signs Vital signs: Vital Signs - 12hr 04/12/19 04/13/19 23:13 05:49 Temperature 98.3 F 98.4 F Pulse Rate 83 76 Respiratory 20 18 Rate Blood Pressure 106/54 Blood Pressure 126/75 [Right] O2 Sat by Pulse 95 95 Oximetry - General Appearance General appearance: well-developed, well-nourished, obese, other (no distress, R IJ tunnel catheter) EENT: ATNC, PERRL, hearing intact, vision intact Neck: supple Respiratory: Present: Clear to Ascultation Cardiology: regular, S1S2, no murmurs Gastrointestinal: normoactive bowel sounds, no tenderness, no distended, obese Integumentary: no rash, warm and dry Neurologic: no focal deficit, no asterixis, alert and oriented x3 Musculoskeletal: other (no edema) Psychiatric: cooperative - Lab 04/13/19 07:17 04/11/19 02:43 Most recent lab results Calcium 8.9 mg/dL (8.4-10.2) D 04/11/19 02:43 Medications & Allergies - Medications Allergies/Adverse Reactions: Allergies No Known Allergies Allergy (Verified 02/16/19 09:53) Home Medications: Home Medications Medication Instructions Recorded Confirmed Last Taken Type Metoprolol [Lopressor TAB] 25 mg PO BID #60 tablet 02/10/19 04/08/19 03/01/19 Rx Ondansetron (Nf) [Zofran TAB] 8 mg PO Q8HR PRN #16 tablet 02/10/19 04/08/19 03/01/19 Rx Pantoprazole [Protonix TAB] 40 mg PO DAILY 02/13/19 04/08/19 03/02/19 10:05 History amLODIPine [Norvasc] 10 mg PO DAILY 06/11/2904/08/19 03/02/19 10:05 History Lidocaine [Aspercreme] 1 each TP DAILY #30 adh..patch 04/10/19 Unknown Rx Polyethylene Glycol 3350 17 gm PO AC #10 powd.pack 04/10/19 Unknown Rx [Powderlax] traMADol [Ultram] 50 mg PO Q8HR PRN #20 tablet 04/10/19 Unknown Rx Active Medications: Generic Name Dose Route Start Last Admin Trade Name Freq PRN Reason Stop Dose Admin Acetaminophen 650 mg 04/08/19 01:35 Tylenol PO Q4H PRN Pain MILD(1-3)/Fever >100.5/BROWN Amlodipine Besylate 10 mg 04/10/19 10:00 04/13/19 09:18 Norvasc PO 10 mg DAILY PRINCESS Administration Docusate Sodium 100 mg 04/08/19 22:00 04/13/19 09:23 Colace PO Not Given BID PRINCESS Enoxaparin Sodium 30 mg 04/08/19 10:00 04/13/19 09:23 Lovenox SUB-Q Not Given QDAY PRINCESS Epoetin Conor 10,000 unit 04/10/19 12:27 Procrit SUB-Q GOPI PRN hemodialysis Heparin Sodium (Porcine) 3,000 unit 04/10/19 12:27 Heparin 10,000 Units/10 Ml IV GOPI PRN hemodialysis Hydralazine HCl 5 mg 04/08/19 01:54 Apresoline IV Q6H PRN Hypertension Sodium Chloride 100 mls @ 999 mls/hr 04/10/19 12:27 Nacl 0.9% IV GOPI PRN Hypotension Metoprolol Tartrate 25 mg 04/09/19 22:00 04/13/19 09:18 Lopressor PO 25 mg BID PRINCESS Administration Nicotine 7 mg 04/09/19 22:00 04/12/19 15:05 Habitrol TD 7 mg QDAY PRINCESS Administration Ondansetron HCl 4 mg 04/09/19 14:45 04/11/19 20:15 Zofran IV 4 mg Q6H PRN Administration N/V unrelieved by Reglan Oxycodone/Acetaminophen 1 tab 04/08/19 12:00 04/12/19 15:10 Percocet 5/325 PO 1 tab Q6H PRN Administration Pain, Moderate (4-6) Oxycodone/Acetaminophen 2 tab 04/08/19 12:00 04/11/19 21:46 Percocet 5/325 PO 2 tab Q6H PRN Administration Pain , Severe (7-10) Pantoprazole Sodium 40 mg 04/10/19 10:00 04/13/19 09:18 Protonix PO 40 mg DAILY PRINCESS Administration Polyethylene Glycol 17 gm 04/09/19 15:00 04/13/19 09:24 Miralax 3350 PO Not Given QDAY PRINCESS Sevelamer Carbonate 2,400 mg 04/11/19 07:30 04/13/19 09:17 Renvela PO 2,400 mg AC PRINCESS Administration Sodium Chloride 10 ml 04/08/19 10:00 04/13/19 09:19 Sodium Chloride Flush Syringe 10 Ml IV 10 ml BID PRINCESS Administration Sodium Chloride 10 ml 04/08/19 01:35 04/08/19 03:50 Sodium Chloride Flush Syringe 10 Ml IV 10 ml PRN PRN Administration LINE FLUSH
--- NOTE | 2019-04-13 10:15 | Progress Note ---
Assessment and Plan Assessment and plan: --Bacteremia, 1/ blood cx positive, restart cefepime Follow sensitivities, repeat cultures, ID evaluation --LUE pain, muskuloskeletal vs suspect inflammatory origin s/p depomedrol + lidocaine + marcaine injection... 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 Hospitalist Physical - Constitutional Vitals: Temp Pulse Resp BP Pulse Ox 98.4 F 76 18 126/75 95 04/13/19 05:49 04/13/19 05:49 04/13/19 05:49 04/13/19 05:49 04/13/19 05:49 General appearance: Present: no acute distress, well-nourished, obese Results - Labs CBC & Chem 7: 04/13/19 07:17 04/11/19 02:43 Labs: Laboratory Last Values WBC 7.7 K/mm3 (4.5-11.0) 04/13/19 07:17 RBC 3.26 M/mm3 (3.65-5.03) L 04/13/19 07:17 Hgb 8.8 gm/dl (10.1-14.3) L 04/13/19 07:17 Hct 28.6 % (30.3-42.9) L 04/13/19 07:17 MCV 88 fl (79-97) 04/13/19 07:17 MCH 27 pg (28-32) L 04/13/19 07:17 MCHC 31 % (30-34) 04/13/19 07:17 RDW 18.5 % (13.2-15.2) H 04/13/19 07:17 Plt Count 395 K/mm3 (140-440) 04/13/19 07:17 Lymph % (Auto) 19.0 % (13.4-35.0) 04/13/19 07:17 [place] % (Auto) 8.1 % (0.0-7.3) H 04/13/19 07:17 Eos % (Auto) 1.5 % (0.0-4.3) 04/13/19 07:17 Baso % (Auto) 0.8 % (0.0-1.8) 04/13/19 07:17 Lymph # 1.5 K/mm3 (1.2-5.4) 04/13/19 07:17 [place] # 0.6 K/mm3 (0.0-0.8) 04/13/19 07:17 Eos # 0.1 K/mm3 (0.0-0.4) 04/13/19 07:17 Baso # 0.1 K/mm3 (0.0-0.1) 04/13/19 07:17 Seg Neutrophils % 70.6 % (40.0-70.0) H 04/13/19 07:17 Seg Neutrophils # 5.4 K/mm3 (1.8-7.7) 04/13/19 07:17 ESR 113 mm/Hr (0-20) 04/07/19 22:27 PT 13.0 Sec. (12.2-14.9) 04/07/19 19:49 INR 1.01 (0.87-1.13) 04/07/19 19:49 APTT 52.3 Sec. (24.2-36.6) H 04/07/19 19:49 Sodium 137 mmol/L (137-145) 04/11/19 02:43 Potassium 4.5 mmol/L (3.6-5.0) 04/11/19 02:43 Chloride 98.0 mmol/L (98-107) 04/11/19 02:43 Carbon Dioxide 23 mmol/L (22-30) 04/11/19 02:43 21 mmol/L 04/11/19 02:43 BUN 40 mg/dL (7-17) H 04/11/19 02:43 8.0 mg/dL (0.7-1.2) H 04/11/19 02:43 Estimated GFR 7 ml/min 04/11/19 02:43 5 % 04/11/19 02:43 Glucose 109 mg/dL (65-100) H 04/11/19 02:43 Lactic Acid 2.60 mmol/L (0.7-2.0) H* 04/13/19 07:17 Calcium 8.9 mg/dL (8.4-10.2) D 04/11/19 02:43 0.20 mg/dL (0.1-1.2) 04/07/19 19:49 AST 21 units/L (5-40) 04/07/19 19:49 ALT 16 units/L (7-56) 04/07/19 19:49 180 units/L (35-129) H 04/07/19 19:49 8.1 g/dL (6.3-8.2) 04/07/19 19:49 3.6 g/dL (3.9-5) L 04/07/19 19:49 0.8 % 04/07/19 19:49 Hepatitis A IgM Ab Non-reactive (NonReactive) 04/10/19 13:57 Hep Bs Antigen Non-reactive (Negative) 04/10/19 13:57 Hep B Core IgM Ab Non-reactive (NonReactive) 04/10/19 13:57 Non-reactive (NonReactive) 04/10/19 13:57 Active Medications - Current Medications Current Medications: Generic Name Dose Route Start Last Admin Trade Name Freq PRN Reason Stop Dose Admin Acetaminophen 650 mg 04/08/19 01:35 Tylenol PO Q4H PRN Pain MILD(1-3)/Fever >100.5/BROWN Amlodipine Besylate 10 mg 04/10/19 10:00 04/13/19 09:18 Norvasc PO 10 mg DAILY [facility] Administration Docusate Sodium 100 mg 04/08/19 22:00 04/13/19 09:23 Colace PO Not Given BID PRINCESS Enoxaparin Sodium 30 mg 04/08/19 10:00 04/13/19 09:23 Lovenox SUB-Q Not Given QDAY PRINCESS Epoetin Conor 10,000 unit 04/10/19 12:27 Procrit SUB-Q GOPI PRN hemodialysis Heparin Sodium (Porcine) 3,000 unit 04/10/19 12:27 Heparin 10,000 Units/10 Ml IV GOPI PRN hemodialysis Hydralazine HCl 5 mg 04/08/19 01:54 Apresoline IV Q6H PRN Hypertension Sodium Chloride 100 mls @ 999 mls/hr 04/10/19 12:27 Nacl 0.9% IV GOPI PRN Hypotension Metoprolol Tartrate 25 mg 04/09/19 22:00 04/13/19 09:18 Lopressor PO 25 mg BID PRINCESS Administration Nicotine 7 mg 04/09/19 22:00 04/12/19 15:05 Habitrol TD 7 mg QDAY PRINCESS Administration Ondansetron HCl 4 mg 04/09/19 14:45 04/11/19 20:15 Zofran IV 4 mg Q6H PRN Administration N/V unrelieved by Reglan Oxycodone/Acetaminophen 1 tab 04/08/19 12:00 04/12/19 15:10 Percocet 5/325 PO 1 tab Q6H PRN Administration Pain, Moderate (4-6) Oxycodone/Acetaminophen 2 tab 04/08/19 12:00 04/11/19 21:46 Percocet 5/325 PO 2 tab Q6H PRN Administration Pain , Severe (7-10) Pantoprazole Sodium 40 mg 04/10/19 10:00 04/13/19 09:18 Protonix PO 40 mg DAILY PRINCESS Administration Polyethylene Glycol 17 gm 04/09/19 15:00 04/13/19 09:24 Miralax 3350 PO Not Given QDAY PRINCESS Sevelamer Carbonate 2,400 mg 04/11/19 07:30 04/13/19 09:17 Renvela PO 2,400 mg AC PRINCESS Administration Sodium Chloride 10 ml 04/08/19 10:00 04/13/19 09:19 Sodium Chloride Flush Syringe 10 Ml IV 10 ml BID PRINCESS Administration Sodium Chloride 10 ml 04/08/19 01:35 04/08/19 03:50 Sodium Chloride Flush Syringe 10 Ml IV 10 ml PRN PRN Administration LINE FLUSH Nutrition/Malnutrition Assess - Dietary Evaluation Nutrition/Malnutrition Findings: Nutrition Notes Start: 04/08/19 08:54 Freq: Status: Active Protocol: Document 04/10/19 14:24 RM (Rec: 04/10/19 14:27 RM [email or web address]) Nutrition Notes Initial or Follow up Brief Note Current Diagnosis CKD (stage V CKD),Hypertension Other Pertinent Diagnosis on HD, LUE pain Current Diet Renal Labs/Tests Reviewed Pertinent Medications Solu-Medrol Height 5 ft 9 in Weight 121.7 kg [place] Body Weight (kg) 65.90 BMI 39.6 Subjective/Other Information Pt stated that her appetite is okay and that she eats most of her meals. Denied chewing or swallowing difficulty. Burn Absent Trauma Absent Nutrition Intervention Revisit per MD consult or patient Sign Off request:
[2019-04-13 13:26] VITALS: BP 128/80
--- NOTE | 2019-04-13 18:10 | Discharge Summary ---
Providers - Providers Date of Admission: 04/08/19 01:35 Date of discharge: 04/13/19 Attending physician: HARI FIGUEROA 04/08/19 01:13 Consult to Physician [CONS] Routine Comment: Dr. Sanchez spoke with Dr. Hansen @ [id number] Consulting Provider: ENMA HANSEN Physician Instructions: Reason For Exam: arm pain. hd fistula 04/09/19 14:15 Consult to Physician [CONS] Routine Comment: Consulting Provider: LOYDA JACKSON Physician Instructions: Reason For Exam: Left arm pain 04/10/19 12:11 Consult to Physician [CONS] Routine Comment: Consulting Provider: CHIQUIS LOPEZ Physician Instructions: Reason For Exam: ESRD 04/12/19 10:14 Consult to Physician [CONS] Routine Comment: Consulting Provider: KAROL SZYMANSKI Physician Instructions: Reason For Exam: Lactic acidosis/Leukocytosis/Gm+ve rods 09/16 Primary care physician: ORTIZ KEN Hospitalization Reason for admission: Left Extremity and elbow pain Condition: Fair Pertinent studies: Upper extremity CT scan X ray elbow Parathyroid nuclear scan; right inferior parathyroid adenoma Hospital course: The patient is a 43 YO female with history significant for Obesity, Hypertension, HLD, Anemia, RICHIE, ESRD on hemodialysis (MWF) and Secondary hyperparathyroidism who presented to [facility] ED with c/o L elbow pain. Patient has evaluation by orthopedic, and received intra-articular steroid injection Symptoms significantly improved, patient also had funding for positive blood cultures which are contaminant, evaluated by ID, received empiric antibiotics for a couple of days, patient is being followed by ID, however patient did not want to stay in the hospital due to personal reasons and left AMA after signing necessary documents. 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 Disposition: - LEFT AGAINST MED ADVICE Time spent for discharge: 32 min Core Measure Documentation - Palliative Care Palliative Care/ Comfort Measures: Not Applicable - Core Measures Any of the following diagnoses?: none Exam - Constitutional Vitals: Temp Pulse Resp BP Pulse Ox 97.7 F 79 22 128/80 94 04/13/19 11:55 04/13/19 11:55 04/13/19 11:55 04/13/19 11:55 04/13/19 11:55 General appearance: Present: no acute distress, well-nourished, obese - EENT Eyes: Present: PERRL, EOM intact - Neck Neck: Present: supple, normal ROM - Respiratory Respiratory effort: normal Respiratory: bilateral: diminished, negative: rales, rhonchi, wheezing - Cardiovascular Rhythm: regular Heart Sounds: Present: S1 & S2 - Extremities Extremities: no ischemia, No edema - Abdominal General gastrointestinal: Present: soft, non-tender, non-distended, normal bowel sounds - Integumentary Integumentary: Present: clear, warm - Musculoskeletal Musculoskeletal: strength equal bilaterally - Psychiatric Psychiatric: appropriate mood/affect, cooperative - Neurologic Neurologic: CNII-XII intact, moves all extremities Plan Activity: advance as tolerated Diet: other (cardiac diet) Additional Instructions: Patient left AMA Follow up with: ORTIZ KEN MD [Primary Care Provider] - 7 Days Prescriptions: Lidocaine [Aspercreme] 1 each TP DAILY #30 adh..patch Polyethylene Glycol 3350 [Powderlax] 17 gm PO AC #10 powd.pack traMADol [Ultram] 50 mg PO Q8HR PRN #20 tablet PRN Reason: Pain
== END 2019-04-13 13:20 | disposition left against medical advice (07) | DRG 555 ==
LOC: ED 18:40 → 3A 04-08 01:35
PROVIDERS: ADMIT Internal Medicine; ATTEND Internal Medicine
PROC: 5A1D70Z Performance of Urinary Filtration, Intermittent, Less than 6 Hours Per Day (ICD-10-PCS; principal; 2019-04-10)
PROC: 5A1D70Z Performance of Urinary Filtration, Intermittent, Less than 6 Hours Per Day (ICD-10-PCS; 2019-04-12)
DX: M25.522 Pain in left elbow (principal); N18.6 End stage renal disease; E87.2 Acidosis; I12.0 Hypertensive chronic kidney disease with stage 5 chronic kidney disease or end stage renal disease; N25.81 Secondary hyperparathyroidism of renal origin; R65.10 Systemic inflammatory response syndrome (SIRS) of non-infectious origin without acute organ dysfunction; Z53.21 Procedure and treatment not carried out due to patient leaving prior to being seen by health care provider; E86.0 Dehydration; E66.01 Morbid (severe) obesity due to excess calories; G43.909 Migraine, unspecified, not intractable, without status migrainosus; F17.200 Nicotine dependence, unspecified, uncomplicated; D64.9 Anemia, unspecified; Z82.49 Family history of ischemic heart disease and other diseases of the circulatory system; Z68.39 Body mass index [BMI] 39.0-39.9, adult; Z79.899 Other long term (current) drug therapy; Z90.49 Acquired absence of other specified parts of digestive tract; Z71.6 Tobacco abuse counseling; Z71.3 Dietary counseling and surveillance; Z99.2 Dependence on renal dialysis
CPT/HCPCS: 36415; 78070; 80048; 80053; 80074; 82140; 85025; 85027; 85610; 85652; 85730; 87040; 87116; 96361; 96365; 96375; 96376; 99406; G0378; A9500; J0692; J0885; J1030; J1170; J1650; J2270; J2405; J2543; J7030